=== PATIENT | female | born 1980 | race Caucasian/White ===

== ENCOUNTER 2017-03-05 07:36 | Emergency (ER) | payer OTHER ==
[2017-03-05 07:41] VITALS: BP 144/80; PULSE 85; TEMP 98.5; BMI 22.4
--- NOTE | 2017-03-05 08:10 | PDOC ---
*Physical Exam - Vital Signs Last Vital Signs Temp Pulse Resp BP Pulse Ox 98.5 F 85 18 144/80 100 03/05/17 07:38 03/05/17 07:38 03/05/17 07:38 03/05/17 07:38 03/05/17 07:38 - Physical Exam Comments: 03/05/17 15:58 I reviewed the case of the mid-level practitioner and was available for consultation while in the emergency department *DC/Admit/Observation/Transfer Diagnosis at time of Disposition: Dysuria - Discharge Dispostion Disposition: HOME Condition at time of disposition: Good - Prescriptions Prescriptions: Nitrofurantoin Monohyd/M-Cryst [Macrobid -] 100 mg PO BID #14 capsule - Referrals Referrals: Zuri Pritchard MD [Primary Care Provider] - - Patient Instructions Printed Discharge Instructions: Urinary Tract Infection Additional Instructions: Take antibiotics as prescribed Contact ED for culture results in 3 days at [phone] Return for worsening of symptoms - Post Discharge Activity Forms/Work/School Notes: Back to Work
--- NOTE | 2017-03-05 08:33 | PDOC ---
History of Present Illness - General Chief Complaint: Pain Stated Complaint: ABDOMINAL PAIN Time Seen by Provider: 03/05/17 08:08 History Source: Patient - History of Present Illness Timing/Duration: reports: other Quality: reports: moderate Abdominal Pain Onset Location: reports: suprapubic Past History - Past Medical History Allergies/Adverse Reactions: Allergies Allergy/AdvReac Type Severity Reaction Status Date / Time No Known Allergies Allergy Verified 03/05/17 07:38 Home Medications: Ambulatory Orders Nitrofurantoin Monohyd/M-Cryst [Macrobid -] 100 mg PO BID #14 capsule 03/05/17 Other medical history: denies. - Suicide/Smoking/Psychosocial Hx Smoking History: Current every day smoker Number of Cigarettes Smoked Daily: 8 Information on smoking cessation initiated: No Hx Alcohol Use: Yes (occassionally.) Drug/Substance Use Hx: No Review of Systems - Review of Systems Constitutional: No: Chills, Fever ABD/GI: No: Nausea, Vomiting : Yes: Burning, Dysuria. No: Frequency, Flank Pain, Hematuria Musculoskeletal: No: Back Pain *Physical Exam - Vital Signs Last Vital Signs Temp Pulse Resp BP Pulse Ox 98.5 F 85 18 144/80 100 03/05/17 07:38 03/05/17 07:38 03/05/17 07:38 03/05/17 07:38 03/05/17 07:38 - Physical Exam General Appearance: Yes: Appropriately Dressed. No: Apparent Distress HEENT: positive: Normal Voice Neck: positive: Supple Respiratory/Chest: negative: Respiratory Distress Female Pelvic Exam: positive: normal external exam, normal adnexa, discharge ( small amount milky white discharge). negative: CMT, adnexal tenderness Gastrointestinal/Abdominal: positive: Tender, Soft Musculoskeletal: negative: CVA Tenderness Integumentary: positive: Dry, Warm Neurologic: positive: Fully Oriented, Alert, Normal Mood/Affect Medical Decision Making - Medical Decision Making 03/05/17 08:28 36-year-old female, denies any past medical history here with suprapubic pain with dysuria. Patient states she developed symptoms approximately 3 weeks ago and was diagnosed with a UTI at [facility] And started on Keflex. States symptoms did not resolve, so went to her PMD for evaluation and states she was started on cipro, but states she continues to have symptoms despite completing meds. Patient does not know the results of initial or subsequent culture. Denies hematuria, flank pain, nausea, vomiting, fever or chills. No unusual vaginal discharge. No history of STDs. See exam Persistent dysuria Completed 2 course of keflex over past 3 weeks, does not know cx results Exam only remarkable for ttp to mid suprapubic area, no e/o pyelo and pelvic exam wnl Given recent abx use, ua and ucx m/l will be unreliable, will contact for initial cx results 03/05/17 08:39 [phone] and was told that patient's UA showed positive leuks only and that patient was in fact started on cipro not Keflex. Staff informed me that no urine culture was sent. Will dc w/ macrobid. Reason to return d/w pt 03/05/17 08:42 03/05/17 09:02 *DC/Admit/Observation/Transfer Diagnosis at time of Disposition: Dysuria - Discharge Dispostion Disposition: HOME Condition at time of disposition: Good - Prescriptions Prescriptions: Nitrofurantoin Monohyd/M-Cryst [Macrobid -] 100 mg PO BID #14 capsule - Referrals Referrals: Zuri Pritchard MD [Primary Care Provider] - - Patient Instructions Printed Discharge Instructions: Urinary Tract Infection Additional Instructions: Take antibiotics as prescribed Contact ED for culture results in 3 days at [phone] Return for worsening of symptoms
[2017-03-05 09:04] LABS: URINE APPEARANCE CLOUDY; URINE BILIRUBIN NEGATIVE (NEGATIVE); URINE BLOOD 1+ (NEGATIVE); URINE COLOR YELLOW; URINE GLUCOSE (UA) NEGATIVE (NEGATIVE); URINE KETONE NEGATIVE (NEGATIVE); URINE NITRITE NEGATIVE (NEGATIVE); URINE PROTEIN NEGATIVE (NEGATIVE); URINE UROBILINOGEN NEGATIVE mg/dL (0.2-1.0)
[2017-03-05 09:11] LABS: URINE MUCUS MANY; URINE RBC 5 /hpf (0-3); URINE WBC 11 /hpf (3-5)
--- NOTE | 2017-03-05 09:14 | PDOC ---
*Physical Exam - Vital Signs Last Vital Signs Temp Pulse Resp BP Pulse Ox 98.5 F 85 18 144/80 100 03/05/17 07:38 03/05/17 07:38 03/05/17 07:38 03/05/17 07:38 03/05/17 07:38 ED Treatment Course - ADDITIONAL ORDERS Additional order review: Laboratory Results 03/05/17 08:45 Urine Color Yellow Urine Appearance Cloudy Urine pH 5.0 Urine Protein Negative Urine Glucose (UA) Negative Urine Ketones Negative Urine Blood 1+ H Urine Nitrite Negative Urine Bilirubin Negative Urine Urobilinogen Negative *DC/Admit/Observation/Transfer Diagnosis at time of Disposition: Dysuria - Discharge Dispostion Disposition: HOME Condition at time of disposition: Good - Prescriptions Prescriptions: Nitrofurantoin Monohyd/M-Cryst [Macrobid -] 100 mg PO BID #14 capsule - Referrals Referrals: Zuri Pritchard MD [Primary Care Provider] - - Patient Instructions Printed Discharge Instructions: Urinary Tract Infection Additional Instructions: Take antibiotics as prescribed Contact ED for culture results in 3 days at [phone] Return for worsening of symptoms - Post Discharge Activity Forms/Work/School Notes: Back to Work
[2017-03-05 10:51] LABS: URINE LEUK ESTERASE TRACE (NEGATIVE)
== END 2017-03-05 09:18 | disposition home or self-care (01) ==
LOC: SUPCPDRO 07:36 → JER 07:36
DX: R30.0 Dysuria (principal); Z87.440 Personal history of urinary (tract) infections
CPT/HCPCS: 81003; 81015; 84703; 87086; 99282-25

== ENCOUNTER 2017-08-09 16:59 | Emergency (ER) | payer SELFPAY ==
--- NOTE | 2017-08-09 17:15 | PDOC ---
Rapid Medical Evaluation Chief Complaint: Urinary Problem Time Seen by Provider: 08/09/17 17:14 Medical Evaluation: Allergies Allergy/AdvReac Type Severity Reaction Status Date / Time No Known Allergies Allergy Verified 08/09/17 17:13 I have performed a brief in-person evaluation of this patient. The patient presents with a chief complaint of: pressure and pain with urination today Pertinent physical exam findings: none I have ordered the following: UA/culture/hcg The patient will proceed to the ED for further evaluation.
[2017-08-09 17:16] VITALS: BP 107/70; PULSE 71; TEMP 98.2; BMI 21.2
--- NOTE | 2017-08-09 18:23 | PDOC ---
History of Present Illness - General Chief Complaint: Urinary Problem Stated Complaint: POSSIBLE UTI Time Seen by Provider: 08/09/17 17:14 History Source: Patient Exam Limitations: No Limitations - History of Present Illness Travel History: No Initial Comments: 08/09/17 18:22 37 yr female with one day of urinary burning, urgency and frequency for one day. pt has history of UTI in the past states this feels the same. Past History - Past Medical History Allergies/Adverse Reactions: Allergies Allergy/AdvReac Type Severity Reaction Status Date / Time No Known Allergies Allergy Verified 08/09/17 17:13 Home Medications: Ambulatory Orders Cephalexin [Keflex] 500 mg PO BID #6 capsule 08/09/17 Phenazopyridine HCl [Pyridium] 200 mg PO TID #6 tablet 08/09/17 COPD: No - Suicide/Smoking/Psychosocial Hx Smoking History: Current every day smoker Number of Cigarettes Smoked Daily: 8 Information on smoking cessation initiated: Yes 'Breaking Loose' booklet given: 08/09/17 Hx Alcohol Use: Yes (occassionally.) Drug/Substance Use Hx: No Substance Use Type: None *Physical Exam - Vital Signs Last Vital Signs Temp Pulse Resp BP Pulse Ox 98.2 F 71 18 107/70 100 08/09/17 17:14 08/09/17 17:14 08/09/17 17:14 08/09/17 17:14 08/09/17 17:14 - Physical Exam General Appearance: Yes: Nourished, Appropriately Dressed HEENT: positive: EOMI, KITA, Normal ENT Inspection Neck: negative: Tender Respiratory/Chest: positive: Lungs Clear, Normal Breath Sounds Cardiovascular: positive: Regular Rhythm, Regular Rate Musculoskeletal: positive: Normal Inspection Extremity: positive: Normal Capillary Refill, Normal Inspection, Normal Range of Motion Integumentary: positive: Normal Color, Dry, Warm Neurologic: positive: Fully Oriented, Alert, Normal Mood/Affect, Normal Response , Motor Strength 5/5 Medical Decision Making - Medical Decision Making 08/09/17 18:25 cc: urinary urgency and frequency no fever, no flank or back pain neg vomiting or diarrhea will check UA 08/09/17 19:07 will treat for UTI now *DC/Admit/Observation/Transfer Diagnosis at time of Disposition: Urinary tract infection Qualifiers: Urinary tract infection type: acute cystitis Hematuria presence: without hematuria Qualified Code(s): N30.00 - Acute cystitis without hematuria - Discharge Dispostion Disposition: HOME Condition at time of disposition: Good - Prescriptions Prescriptions: Cephalexin [Keflex] 500 mg PO BID #6 capsule Phenazopyridine HCl [Pyridium] 200 mg PO TID #6 tablet - Referrals Referrals: Master Landrum MD [Staff Physician] - - Patient Instructions Additional Instructions: drink pleanty of water take the medication as prescribed follow with the urologist for any worsening symptoms - Post Discharge Activity
[2017-08-09 18:28] LABS: HCG,QUALITATIVE URINE NEGATIVE; URINE APPEARANCE CLOUDY; URINE BILIRUBIN NEGATIVE (<2.0 mg/dL); URINE BLOOD 2+ (NEGATIVE); URINE COLOR STRAW; URINE GLUCOSE (UA) NEGATIVE (NEGATIVE); URINE KETONE NEGATIVE (NEGATIVE); URINE NITRITE NEGATIVE (NEGATIVE); URINE PROTEIN NEGATIVE (NEGATIVE); URINE UROBILINOGEN NEGATIVE mg/dL (0.2-1.0)
[2017-08-09 18:29] LABS: URINE LEUK ESTERASE 3+ (NEGATIVE)
[2017-08-09] MEDS ORDERED: IBUPROFEN 600 MG TABLET (FP) PO ONE ×2 (18:44→19:08)
[2017-08-09 19:35] LABS: EPI CELLS MODERATE /HPF (FEW); URINE BACTERIA MODERATE /hpf (NONE SEEN)
== END 2017-08-09 19:10 | disposition home or self-care (01) ==
LOC: JERFT 16:59
DX: N30.00 Acute cystitis without hematuria (principal)
CPT/HCPCS: 81003; 81015; 84703; 87086; 99281-25

== ENCOUNTER 2017-08-11 14:23 | Emergency (ER) | payer SELFPAY ==
[2017-08-11 14:34] VITALS: BP 108/79; PULSE 80; TEMP 98; BMI 22.0
--- NOTE | 2017-08-11 14:35 | PDOC ---
Rapid Medical Evaluation Chief Complaint: Urinary Problem Time Seen by Provider: 08/11/17 14:31 Medical Evaluation: Allergies Allergy/AdvReac Type Severity Reaction Status Date / Time No Known Allergies Allergy Verified 08/09/17 17:13 08/11/17 14:32 I have performed a brief in-person evaluation of this patient. The patient presents with a chief complaint of:dysuria, currently on keflex w/ no improvement. Ucx 08/09 w/ contamination, no sensitivities reported. States macrobid helped her in the past Pertinent physical exam findings:stable and well karin w/ no CVAT I have ordered the following:ua/cx/upreg The patient will proceed to the ED for further evaluation. 08/11/17 14:33
[2017-08-11 15:57] LABS: HCG,QUALITATIVE URINE NEGATIVE
[2017-08-11 15:58] LABS: URINE APPEARANCE CLEAR; URINE BILIRUBIN NEGATIVE (<2.0 mg/dL); URINE BLOOD NEGATIVE (NEGATIVE); URINE COLOR RED; URINE GLUCOSE (UA) NEGATIVE (NEGATIVE); URINE KETONE NEGATIVE (NEGATIVE); URINE LEUK ESTERASE NEGATIVE (NEGATIVE); URINE NITRITE POSITIVE (NEGATIVE); URINE UROBILINOGEN 4.0 E.U/dl mg/dL (0.2-1.0)
[2017-08-11 16:00] LABS: EPI CELLS MODERATE /HPF (FEW); URINE BACTERIA RARE /hpf (NONE SEEN); URINE MUCUS FEW; URINE PROTEIN 1+ (NEGATIVE)
--- NOTE | 2017-08-11 16:28 | PDOC ---
History of Present Illness - General Chief Complaint: Urinary Problem Stated Complaint: URINARY PROBLEM/WANTS PRESCRIPTION Time Seen by Provider: 08/11/17 14:31 History Source: Patient Exam Limitations: No Limitations - History of Present Illness Travel History: No Initial Comments: 08/11/17 16:28 This is a 37-year-old female who presents to emergency department with 2 days of dysuria, urgency, frequency and foul-smelling urine. Patient was seen and evaluated in this emergency Department 2 days ago and was prescribed Keflex for which the patient has finish the prescription. Patient states her symptoms have improved since initial presentation for UTI. She denies any fevers, lower back pain, nausea, vomiting, vaginal discharge, vaginal bleeding or rectal bleeding. Past History - Past Medical History Allergies/Adverse Reactions: Allergies Allergy/AdvReac Type Severity Reaction Status Date / Time No Known Allergies Allergy Verified 08/11/17 14:34 Home Medications: Ambulatory Orders Cephalexin [Keflex] 500 mg PO BID #6 capsule 08/09/17 Phenazopyridine HCl [Pyridium] 200 mg PO TID #6 tablet 08/09/17 Cephalexin Monohydrate [Keflex -] 500 mg PO BID #10 capsule 08/11/17 COPD: No Other medical history: UTI - Suicide/Smoking/Psychosocial Hx Smoking History: Never smoked Number of Cigarettes Smoked Daily: 8 Information on smoking cessation initiated: No 'Breaking Loose' booklet given: 08/11/17 Hx Alcohol Use: No Drug/Substance Use Hx: No Substance Use Type: None Review of Systems - Review of Systems Able to Perform ROS?: Yes Is the patient limited Czech proficient: No Constitutional: No: Symptoms Reported HEENTM: No: Symptoms Reported Respiratory: No: Symptoms reported Cardiac (ROS): No: Symptoms Reported ABD/GI: No: Symptoms Reported : Yes: See HPI Musculoskeletal: No: Symptoms Reported Integumentary: No: Symptoms Reported Neurological: No: Symptoms reported Endocrine: No: Symptoms Reported *Physical Exam - Vital Signs Last Vital Signs Temp Pulse Resp BP Pulse Ox 98 F 80 18 108/79 100 08/11/17 14:31 08/11/17 14:31 08/11/17 14:31 08/11/17 14:31 08/11/17 14:31 - Physical Exam General Appearance: Yes: Appropriately Dressed. No: Apparent Distress HEENT: positive: Normal ENT Inspection Neck: positive: Trachea midline Respiratory/Chest: positive: Lungs Clear, Normal Breath Sounds. negative: Respiratory Distress, Accessory Muscle Use Cardiovascular: positive: Regular Rhythm, Regular Rate. negative: Murmur Gastrointestinal/Abdominal: positive: Normal Bowel Sounds, Soft. negative: Tender Musculoskeletal: positive: Normal Inspection. negative: CVA Tenderness Extremity: positive: Normal Capillary Refill, Normal Inspection, Normal Range of Motion Integumentary: positive: Normal Color, Dry, Warm Neurologic: positive: Alert, Normal Response ED Treatment Course - ADDITIONAL ORDERS Additional order review: Laboratory Results 08/11/17 15:47 Urine Color Red Urine Appearance Clear Urine pH 5.0 Ur Specific [place] 1.014 Urine Protein 1+ H Urine Glucose (UA) Negative Urine Ketones Negative Urine Blood Negative Urine Nitrite Positive Urine Bilirubin Negative Urine Urobilinogen 4.0 e.u/dl H Ur Leukocyte Esterase Negative Urine WBC (Auto) 7 Urine RBC (Auto) <1 Ur Epithelial Cells Moderate Urine Bacteria Rare Urine Mucus Few Urine HCG, Qual Negative Medical Decision Making - Medical Decision Making 08/11/17 16:30 CC: Dysuria, urgency, frequency, foul smelling urine for 2 days A/P: 37-year-old woman without past medical history with 2 days of urinary tract infection symptoms Abdomen soft nontender nondistended. No CVA tenderness elicited. Urine culture collected the other day was contaminated no sensitivities present. Urinalysis today compared to previous urinalysis has improved. Patient with UTI. Given continued symptoms, I will continue Keflex for the next 5 days for a total of 1 week of medications. *DC/Admit/Observation/Transfer Diagnosis at time of Disposition: Urinary tract infection Qualifiers: Urinary tract infection type: site unspecified Hematuria presence: without hematuria Qualified Code(s): N39.0 - Urinary tract infection, site not specified - Discharge Dispostion Disposition: HOME Condition at time of disposition: Stable Admit: No - Prescriptions Prescriptions: Cephalexin Monohydrate [Keflex -] 500 mg PO BID #10 capsule - Referrals - Patient Instructions Additional Instructions: Take Keflex as prescribed until all medications have been finished. Continue to take Pyridium as previous and prescribed. You may take Tylenol or Motrin to help with fevers and/or pain. Drink plenty of fluids. You may drink cranberry juice as this may help decrease pain your experiencing. Return to emergency department for lower back pain, fevers, chills, vaginal discharge or any other concerns. - Post Discharge Activity Forms/Work/School Notes: Back to Work
== END 2017-08-11 16:35 | disposition home or self-care (01) ==
LOC: JERFT 14:23
DX: N39.0 Urinary tract infection, site not specified (principal)
CPT/HCPCS: 81003; 81015; 84703; 87086; 99281-25

== ENCOUNTER 2018-01-15 18:01 | Emergency (ER) | payer OTHER ==
[2018-01-15 18:34] VITALS: BP 105/66; PULSE 73; TEMP 99.6; BMI 21.8
--- NOTE | 2018-01-15 20:25 | PDOC ---
Attending Attestation - HPI HPI: 01/15/18 20:53 The patient is a 37 year old female, , currently 6 weeks with a significant PMH of recurrent UTIs, and BV who presents to the emergency department with vaginal spotting since yesterday. The patient reports that she has also been experiencing associated lower abdominal and back cramping with her vaginal bleeding. The patient describes her bleeding as spotting and not filling a liner. The patient states that her pain has gone from a severity of 7 to 3 since last night. She denies any other symptome. She denies any fever, chills, nausea, vomit, diarrhea, constipation or urinary symptoms. She denies any chest pain, shortness of breath, headache and dizziness. The patient denies any other complaints. She reports that she has an upcoming OB follow up in 3 weeks. Documentation prepared by Ida Carreno, acting as medical stenographer for Roselyn Clemente MD. - Physicial Exam PE: 01/15/18 20:53 GENERAL: Awake, alert, and fully oriented, in no acute distress HEAD: No signs of trauma EYES: PERRLA, EOMI, sclera anicteric, conjunctiva clear ENT: Auricles normal inspection, hearing grossly normal, nares patent, oropharynx clear without exudates. Moist mucosa NECK: Normal ROM, supple, no lymphadenopathy, JVD, or masses LUNGS: Breath sounds equal, clear to auscultation bilaterally. No wheezes, and no crackles HEART: Regular rate and rhythm, normal S1 and S2, no murmurs, rubs or gallops ABDOMEN: Soft, nontender, normoactive bowel sounds. No guarding, no rebound. No masses EXTREMITIES: Normal range of motion, no edema. No clubbing or cyanosis. No cords, erythema, or tenderness NEUROLOGICAL: Cranial nerves II through XII grossly intact. Normal speech, normal gait SKIN: Warm, Dry, normal turgor, no rashes or lesions noted. PELVIC: no bleeding or discharge. Cervical OS closed. <Ida Carreno - Last Filed: 01/15/18 20:53> - Resident Resident Name: Savannah Zuniga - ED Attending Attestation I have performed the following: I have examined & evaluated the patient, The case was reviewed & discussed with the resident, I agree w/resident's findings & plan - Physicial Exam PE: 01/15/18 20:42 Os os closed =open to fingertip only; no CMT, no discharge, and no vag bleed; no rashes in the perineal area. Pt is afebrile. - Medical Decision Making 01/15/18 20:42 Pt has vaginal spotting in early . We will check Quant HCG, blood type as well as UA. Pt is in NAD. SHe has mild cramping at the suprapubic region. Tylenol will be given for pain. 01/15/18 20:54 HB/HCT stable; UA negative for UTI 01/15/18 22:46 hcg quant is 2000s; early ; threatened ab. She will follow with outpaitient OB; Blood type rh positive <Roselyn Clemente - Last Filed: 01/15/18 22:46>
--- NOTE | 2018-01-15 20:31 | PDOC ---
History of Present Illness - General Chief Complaint: Vaginal Bleeding Stated Complaint: VAGINAL BLEED/6 WEEKS - History of Present Illness Initial Comments: Peggy Ramirez is a 37yo A2 woman currently 6wks by LMP who presents with abdominal cramping, vaginal spotting, and low back pain for one day. She reports that she started having low back pain last night and then started having low abdominal cramping today. Initially the abdominal pain was a 7/10, improved slightly, worsened, and now improved again to about a 2-3/10 currently. She additionally had some bright red vaginal spotting earlier today that has now stopped. She wanted to make sure that everything was OK with the , so she presented to the ED. Ms Ramirez additionally reports a recent episode of bacterial vaginosis. She was taking a course of flagyl at home that was just completed today. She also states that she gets frequent UTIs. She has been having urinary frequency and some burning lately, but she attributed those symptoms to the BV and . She does sometimes get suprapubic pain with UTIs that does feel similar to her current symptoms. She denies any additional symptoms including nausea, vomiting, change in bowel habits, fever, or chills. Past History - Past Medical History Allergies/Adverse Reactions: Allergies Allergy/AdvReac Type Severity Reaction Status Date / Time No Known Allergies Allergy Verified 01/15/18 18:26 Home Medications: Ambulatory Orders NK [No Known Home Medication] 01/15/18 COPD: No - Suicide/Smoking/Psychosocial Hx Smoking History: Never smoked Number of Cigarettes Smoked Daily: 8 'Breaking Loose' booklet given: 08/11/17 Hx Alcohol Use: No Drug/Substance Use Hx: No Substance Use Type: None Review of Systems - Review of Systems Comments:: General: No fevers, no chills, no weight or appetite change, no malaise HEENT: No changes in vision, no changes in hearing, no congestion, no sore throat CV: No chest pain, no palpitations, no LE edema Pulm: No SOB, no cough, no wheezing GI: No nausea or vomiting, no change in bowel habits, no melena. +Low abd pain : +frequency, +dysuria, +vaginal discharge (recent BV), +h/o frequent UTI Musc: +Low back pain. No joint swelling, no recent injury Skin: No rash, no lesions, no erythema Endo: No excessive thirst, no heat/cold intolerance Heme: No unusual bruising or bleeding, no swollen glands Neuro: No syncope, no numbness/tingling, no focal weakness Vasc: No claudication Psych: No recent change in mood, no SI or HI *Physical Exam - Vital Signs Last Vital Signs Temp Pulse Resp BP Pulse Ox 99.6 F 73 18 105/66 99 01/15/18 18:24 01/15/18 18:24 01/15/18 18:24 01/15/18 18:24 01/15/18 18:24 - Physical Exam Comments: General: Comfortable, no acute distress HEENT: PERRL, EOMI, MMM, voice normal, normal neck ROM, no LAD Cards: RRR, no murmur appreciated Pulm: Comfortable on room air, clear to auscultation bilaterally Abd: Soft, nondistended. Mild suprapubic tenderness : No CVA tenderness Vaginal: No blood externally. Slight white discharge c/w recent bacterial vaginosis. No blood in vaginal canal. Poorly visualized cervix, but no cervical opening appreciated on manual exam. No cervical motion tenderness. Ext: Atraumatic. No LE edema. ROM intact. Strength 5/5 and equal bilaterally Vasc: Extremities WWP. Palpable radial and pedal pulses bilaterally Neuro: A&Ox3, CN grossly intact, normal speech, motor/sensory grossly intact and symmetric Psych: Mood appropriate to situation ED Treatment Course - LABORATORY CBC & Chemistry Diagram: 01/15/18 20:20 01/15/18 20:20 Medical Decision Making - Medical Decision Making 01/15/18 20:41 Peggy Ramirez is an otherwise healthy 37yo woman, A2, currently 6 wks by LMP who presents with vaginal spotting, low back pain since yesterday and low abdominal cramping today. She also reports recent bacterial vaginosis, 7 days of flagyl completed today, and a history of frequent UTI. - Has had dysuria and frequency, attributed to BV and but may be a UTI. Could account for symptoms - Concern for threatened v inevitable spontaneous - Symptoms may also be consistent with normal - UA, CBC, type & screen, urine preg, quantitative bHCG ordered 01/15/18 22:09 - UA normal, UPG positive. - HCG 2285, slightly low but WNL for stated gestational age - Discussed with Ms Ramirez. Will need follow up HCG early next week; she will need to make a follow up appointment with OB. She agrees to call for an appointment on Wednesday. - Will discharge home. Discussed return precautions, Ms Ramirez understands. Patient discussed with Dr Clemente. *DC/Admit/Observation/Transfer Diagnosis at time of Disposition: Abdominal pain during in first trimester - Discharge Dispostion Disposition: HOME Condition at time of disposition: Good Decision to Admit order: No - Referrals Referrals: Veena Garcia MD [Staff Physician] - - Patient Instructions Printed Discharge Instructions: DI for Abdominal Pain -- Early Additional Instructions: Discharge Instructions: - You were seen in the ED for abdominal and back pain along with a small amount of vaginal bleeding. - Labs confirmed an early , likely around 5 weeks - Your hormone was measured at 2285. You will need a repeat blood test to check whether this hormone continues to improve. Try to make an appointment with Dr Garcia early next week. If you cannot get an appointment next week, you may return to the ED for this blood test but ideally you will establish care with an solutions delivery consultant. - The remainder of your blood and urine tests were normal - Seek immediate medical care if you have significant vaginal bleeding, especially if you are lightheaded or faint, or if you have acute onset of severe abdominal pain along with heavy vaginal bleeding. Also seek attention if you have continued heavy bleeding requiring multiple pads/tampons per hour, especially if this continues for more than a day - Post Discharge Activity
[2018-01-15 20:32] LABS: HEMOGLOBIN 13.3 GM/dL (10.7-15.3); MCH 31.7 pg (25.7-33.7); MCHC 34.1 g/dl (32.0-36.0); MEAN PLT VOLUME 8.9 fl (7.5-11.1); PLATELET COUNT 181 K/MM3 (134-434); RBC 4.19 M/mm3 (3.60-5.2); RDW 12.6 % (11.6-15.6); WHITE BLOOD COUNT 6.9 K/mm3 (4.0-10.0)
[2018-01-15 20:36] LABS: HCG,QUALITATIVE URINE Positive
[2018-01-15 20:38] LABS: URINE APPEARANCE CLEAR; URINE BILIRUBIN NEGATIVE (<2.0 mg/dL); URINE COLOR YELLOW; URINE GLUCOSE (UA) NEGATIVE (NEGATIVE); URINE KETONE NEGATIVE (NEGATIVE); URINE LEUK ESTERASE NEGATIVE (NEGATIVE); URINE NITRITE NEGATIVE (NEGATIVE); URINE PROTEIN NEGATIVE (NEGATIVE); URINE UROBILINOGEN NEGATIVE mg/dL (0.2-1.0)
[2018-01-15] MEDS ORDERED: ACETAMINOPHEN 325 MG TABLET (FP) PO ONE (20:43)
[2018-01-15 20:53] LABS: ANION GAP 8 MMOL/L (8-16); BLOOD UREA NITROGEN 15 mg/dL (7-18); CALCIUM 8.6 mg/dL (8.5-10.1); CHLORIDE 108 mmol/L (98-107); CO2 26 mmol/L (21-32); CREATININE 0.7 mg/dL (0.55-1.02); GLUCOSE,RANDOM 81 mg/dL (74-106); POTASSIUM 3.9 mmol/L (3.5-5.1); SODIUM 142 mmol/L (136-145)
[2018-01-15] MEDS ORDERED: ACETAMINOPHEN 325 MG TABLET (FP) ONE (20:55)
== END 2018-01-15 22:50 | disposition home or self-care (01) ==
LOC: JER 18:01
DX: O26.891 Other specified pregnancy related conditions, first trimester (principal); Z3A.01 Less than 8 weeks gestation of pregnancy; R10.9 Unspecified abdominal pain
CPT/HCPCS: 36415; 80048; 81003; 84702; 84703; 85027; 86850; 86900; 86901; 99281-25

== ENCOUNTER 2018-01-18 18:41 | Emergency (ER) | payer OTHER ==
[2018-01-18 18:54] VITALS: TEMP 99.3; BMI 21.6
--- NOTE | 2018-01-18 20:19 | PDOC ---
History of Present Illness - General History Source: Patient Exam Limitations: No Limitations - History of Present Illness Initial Comments: 01/18/18 20:32 The patient is a 37 year old female, A2, with no other significant past medical history, who presents to the emergency department with increased abdominal cramping and persistent vaginal bleeding since having a beta HCG of 2295 on 01/15/18. She states she was seen by her Assembler Truck Trailer today who tigre blood work, however, states she has a follow-up appt in 2 days to obtain the results. She states the vaginal bleeding has been persistent with change of the coloration from brown to red today. LMP: November 2017 The patient denies chest pain, shortness of breath, headache and dizziness. The patient denies fever, chills, nausea, vomit, diarrhea and constipation. The patient denies dysuria, frequency, urgency and hematuria. Allergies: NKDA Past surgical history: none reported Social history: denies etoh or tobacco. Denies illicit drug use. <Leslie Maldonado - Last Filed: 01/18/18 20:37> <Rosy Crawford - Last Filed: 01/18/18 21:56> - General Chief Complaint: Vaginal Bleeding Stated Complaint: VAGINAL BLEED/7WKS Time Seen by Provider: 01/18/18 20:16 Past History <Leslie Maldonado - Last Filed: 01/18/18 20:37> - Past Medical History COPD: No - Reproductive History (#): 5 Para: 2 Therapeutic (s) & number: Yes (2) - Suicide/Smoking/Psychosocial Hx Smoking History: Never smoked Have you smoked in the past 12 months: No Number of Cigarettes Smoked Daily: 8 Information on smoking cessation initiated: No 'Breaking Loose' booklet given: 08/11/17 Hx Alcohol Use: No Drug/Substance Use Hx: No Substance Use Type: None <Rosy Crawford - Last Filed: 01/18/18 21:56> - Past Medical History Allergies/Adverse Reactions: Allergies Allergy/AdvReac Type Severity Reaction Status Date / Time No Known Allergies Allergy Verified 01/18/18 18:53 Home Medications: Ambulatory Orders NK [No Known Home Medication] 01/15/18 Review of Systems - Review of Systems Able to Perform ROS?: Yes Comments:: 01/18/18 20:37 CONSTITUTIONAL: Absent: fever, no chills, no fatigue EYES: Absent: visual changes ENT: Absent: ear pain, no sore throat CARDIOVASCULAR: Absent: chest pain, no palpitations RESPIRATORY: Absent: cough, no SOB GI: (+) abdominal pain, Absent:no nausea, no vomiting, no constipation, no diarrhea GENITOURINARY: Absent: dysuria, no frequency, no hematuria REPRODUCTIVE: (+) persistent vaginal bleeding in . MUSCULOSKELETAL: Absent: back pain, no arthralgia, no myalgia SKIN: Absent: rash NEURO: Absent: headache <Leslie Maldonado - Last Filed: 01/18/18 20:37> *Physical Exam - Vital Signs Last Vital Signs Temp Pulse Resp BP Pulse Ox 99.3 F 69 16 114/70 100 01/18/18 18:51 01/18/18 18:51 01/18/18 18:51 01/18/18 18:51 01/18/18 18:51 - Physical Exam Comments: 01/18/18 20:38 GENERAL: Well-appearing, well-nourished. No apparent distress. HEENT: Normocephalic, atraumatic. PERRL, EOM intact. CARDIOVASCULAR: Normal S1, S2. Regular rate and rhythm. PULMONARY: Clear to auscultation bilaterally. ABDOMEN: Soft, non-distended, non-tender. EXTREMITIES: Normal ROM in all four extremities. No gross deformities. SKIN: Warm, dry. No rash NEUROLOGICAL: No focal neurological deficits. PELVIC: (+) Blood in vaginal vault fills speculum. Difficulty visualizing Os due to blood. <Leslie Maldonado - Last Filed: 01/18/18 20:37> - Vital Signs Last Vital Signs Temp Pulse Resp BP Pulse Ox 99.3 F 69 16 114/70 100 01/18/18 18:51 01/18/18 18:51 01/18/18 18:51 01/18/18 18:51 01/18/18 18:51 <Rosy Crawford - Last Filed: 01/18/18 21:56> *DC/Admit/Observation/Transfer - Attestations Scribe Attestion: 01/18/18 20:39 Documentation prepared by Leslie Maldonado, acting as medical sociologist for Rosy Crawford MD <Leslie Maldonado - Last Filed: 01/18/18 20:37> <Rosy Crawford - Last Filed: 01/18/18 21:56> Diagnosis at time of Disposition: Threatened in early - Discharge Dispostion Disposition: HOME Condition at time of disposition: Stable - Patient Instructions Printed Discharge Instructions: DI for Threatened Additional Instructions: please keep your appointment this week with your sound truck operator
[2018-01-18 21:04] LABS: URINE APPEARANCE SLCLOUDY; URINE BILIRUBIN NEGATIVE (<2.0 mg/dL); URINE COLOR YELLOW; URINE GLUCOSE (UA) NEGATIVE (NEGATIVE); URINE KETONE NEGATIVE (NEGATIVE); URINE LEUK ESTERASE NEGATIVE (NEGATIVE); URINE NITRITE NEGATIVE (NEGATIVE); URINE PROTEIN NEGATIVE (NEGATIVE); URINE UROBILINOGEN NEGATIVE mg/dL (0.2-1.0)
[2018-01-18 21:10] LABS: EPI CELLS FEW /HPF (FEW); URINE MUCUS FEW
[2018-01-18 22:05] VITALS: BP 118/46; PULSE 65
== END 2018-01-18 22:05 | disposition home or self-care (01) ==
LOC: JER 18:41
DX: O26.891 Other specified pregnancy related conditions, first trimester (principal); Z3A.01 Less than 8 weeks gestation of pregnancy; O20.0 Threatened abortion
CPT/HCPCS: 36415; 76817-TC; 81003; 81015; 84702; 99283-25

== ENCOUNTER 2018-01-21 12:57 | Emergency (ER) | payer OTHER ==
[2018-01-21 13:36] VITALS: TEMP 98.5; BMI 19.3
--- NOTE | 2018-01-21 13:50 | PDOC ---
History of Present Illness - General Chief Complaint: Vaginal Bleeding Stated Complaint: MISCARRIAGE Time Seen by Provider: 01/21/18 13:35 History Source: Patient Exam Limitations: No Limitations - History of Present Illness Initial Comments: CHIEF COMPLAINT: 37 y/o afebrile female, A3, approximately 6 week female c/o lower abdominal pain with vaginal bleeding since yesterday. HISTORY OF PRESENT ILLNESS: She states the pain is sharp and she is passing clots. She denies fever, chills, n/v/d, hematuria, dysuria. Vital signs on arrival are within normal limits. REVIEW OF SYSTEMS: GENERAL/CONSTITUTIONAL: No fever/chills. No weakness. No weight change. HEAD, EYES, EARS, NOSE AND THROAT: No change in vision. No ear pain or discharge. No sore throat. CARDIOVASCULAR: No chest pain or shortness of breath. RESPIRATORY: No cough, wheezing, or hemoptysis. GASTROINTESTINAL: +lower abdominal pain. No nausea, vomiting, diarrhea. VAGINAL: +VAGINAL BLEEDING GENITOURINARY: No dysuria, frequency, or change in urination. MUSCULOSKELETAL: No joint or muscle swelling or pain. No neck or back pain. SKIN: No rash or easy bruising. NEUROLOGIC: No headache, vertigo, loss of consciousness, or loss of sensation. PHYSICAL EXAM: GENERAL: The patient is awake, alert, and fully oriented, in no acute distress. HEAD: Normal with no signs of trauma. ENT: Pupils equal, round and reactive to light, extraocular movements intact, sclera anicteric, conjunctiva clear. Neck supple. LUNGS: Clear to auscultation bilaterally. Normal excursion. No respiratory distress or use of accessory muscles. CV: RRR, S1/S2, no MRG. Cap refill < 2 sec. ABDOMEN: Soft, non-distended, TTP of suprapubic and left pelvic region. Left flank pain. No rebound, guarding or rigidity. BACK: No CVA TTP b/l. VAGINAL: Os closed. Copious blood from os and in vaginal vault. CMT. No adnexal tenderness. EXTREMITIES: Normal range of motion, no edema. NEUROLOGICAL: Normal speech, normal gait. CN II-XII grossly intact. SKIN: Warm, dry, normal turgor, no rashes or lesions noted. Past History - Past Medical History Allergies/Adverse Reactions: Allergies Allergy/AdvReac Type Severity Reaction Status Date / Time No Known Allergies Allergy Verified 01/21/18 13:34 Home Medications: Ambulatory Orders NK [No Known Home Medication] 01/15/18 COPD: No - Reproductive History Is Patient Now?: Yes (#): 6 Para: 2 Therapeutic (s) & number: Yes (2) Spontaneous : 3 - Suicide/Smoking/Psychosocial Hx Smoking History: Never smoked Have you smoked in the past 12 months: No Number of Cigarettes Smoked Daily: 8 Information on smoking cessation initiated: No 'Breaking Loose' booklet given: 08/11/17 Hx Alcohol Use: No Drug/Substance Use Hx: No Substance Use Type: None *Physical Exam - Vital Signs Last Vital Signs Temp Pulse Resp BP Pulse Ox 98.5 F 61 18 123/76 100 01/21/18 13:34 01/21/18 13:34 01/21/18 13:34 01/21/18 13:34 01/21/18 13:34 ED Treatment Course - LABORATORY CBC & Chemistry Diagram: 01/21/18 14:28 01/21/18 14:28 Medical Decision Making - Medical Decision Making A/P: 37 y/o female, 6 weeks , with vaginal bleeding and abdominal pain. Plan is as follows: 1. Labs 2. UA/culture 3. type and screen 4. transvaginal ultrasound beta 2295 on 01/15/18 beta 2060 on 01/18/18 beta 1507 on 01/21/18 Transvaginal Ultrasound IMPRESSION: No definite interval change is seen in comparison to a prior exam of 01/18/2018 as discussed above. Based on beta HCG levels and Ultrasound results the patient is likely miscarrying. Gave her all of the information and suggested she f/u with her OB/ [facility]. The patient verbalizes understanding of all instructions, has no further questions and is awaiting discharge. *DC/Admit/Observation/Transfer Diagnosis at time of Disposition: Vaginal bleeding affecting early , Miscarriage - Discharge Dispostion Disposition: HOME Condition at time of disposition: Good - Referrals - Patient Instructions Printed Discharge Instructions: DI for Miscarriage, DI for Threatened Additional Instructions: Discharge Instructions: -Your beta hcg was 2295 on 01/15, 2060 on 01/18 and 1507 today (01/21); this decrease indicates that you are miscarrying. -You can take Tylenol or Motrin for pain -Drink plenty of fluids -Follow up with your CONCRETE MIXER TRUCK DRIVER on Wednesday - Post Discharge Activity
--- NOTE | 2018-01-21 14:08 | PDOC ---
*Physical Exam - Vital Signs Last Vital Signs Temp Pulse Resp BP Pulse Ox 98.5 F 61 18 123/76 100 01/21/18 13:34 01/21/18 13:34 01/21/18 13:34 01/21/18 13:34 01/21/18 13:34 Medical Decision Making - Medical Decision Making 01/21/18 14:07 Case discussed with RODNEY Archer. Plan as per RODNEY.
[2018-01-21 14:44] LABS: BASO % 1.3 % (0-2.0); EOS % 4.2 % (0-4.5); HEMATOCRIT 39.2 % (32.4-45.2); HEMOGLOBIN 13.3 GM/dL (10.7-15.3); LYMPH % 18.8 % (8-40); MCH 31.8 pg (25.7-33.7); MCHC 33.9 g/dl (32.0-36.0); MEAN CELL VOLUME 93.7 fl (80-96); MEAN PLT VOLUME 9.2 fl (7.5-11.1); MONO % 7.4 % (3.8-10.2); NEUT % 68.3 % (42.8-82.8); PLATELET COUNT 170 K/MM3 (134-434); RBC 4.18 M/mm3 (3.60-5.2); RDW 12.6 % (11.6-15.6); URINE APPEARANCE CLEAR; URINE BILIRUBIN NEGATIVE (<2.0 mg/dL); URINE COLOR YELLOW; URINE GLUCOSE (UA) NEGATIVE (NEGATIVE); URINE KETONE NEGATIVE (NEGATIVE); URINE LEUK ESTERASE NEGATIVE (NEGATIVE); URINE NITRITE NEGATIVE (NEGATIVE); URINE PROTEIN NEGATIVE (NEGATIVE); URINE UROBILINOGEN NEGATIVE mg/dL (0.2-1.0); WHITE BLOOD COUNT 6.7 K/mm3 (4.0-10.0)
[2018-01-21 15:17] LABS: EPI CELLS RARE /HPF (FEW); URINE MUCUS RARE
[2018-01-21 15:38] LABS: ANION GAP 9 MMOL/L (8-16); BLOOD UREA NITROGEN 13 mg/dL (7-18); CALCIUM 8.2 mg/dL (8.5-10.1); CHLORIDE 108 mmol/L (98-107); CO2 26 mmol/L (21-32); CREATININE 0.7 mg/dL (0.55-1.02); GLUCOSE,RANDOM 76 mg/dL (74-106); POTASSIUM 3.9 mmol/L (3.5-5.1); SGOT/AST 19 U/L (15-37); SGPT/ALT 35 U/L (12-78); SODIUM 143 mmol/L (136-145)
[2018-01-21 15:55] LABS: ALK PHOS 45 U/L (45-117); BILIRUBIN,TOTAL 0.3 mg/dL (0.2-1.0)
[2018-01-21 16:26] VITALS: BP 100/74; PULSE 63
== END 2018-01-21 16:26 | disposition home or self-care (01) ==
LOC: JER 12:57
DX: O26.891 Other specified pregnancy related conditions, first trimester (principal); O02.1 Missed abortion; Z3A.01 Less than 8 weeks gestation of pregnancy
CPT/HCPCS: 36415; 76817-TC; 80053; 81003; 81015; 84702; 85025; 86850; 86900; 86901; 87086; 99283-25

== ENCOUNTER 2018-05-14 07:36 | Inpatient (IN) | payer OTHER ==
[2018-05-14] MEDS ORDERED: ACETAMINOPHEN 1000 MG/100 ML VIAL (NON FORMULARY) IVPB ONE ×2 (08:25→14:49)
--- NOTE | 2018-05-14 08:34 | PDOC ---
*Physical Exam - Vital Signs Last Vital Signs Temp Pulse Resp BP Pulse Ox 97.9 F 69 18 96/44 L 99 05/14/18 07:40 05/14/18 07:40 05/14/18 07:40 05/14/18 07:40 05/14/18 07:40 ED Treatment Course - LABORATORY CBC & Chemistry Diagram: 05/15/18 07:45 05/15/18 08:25 Medical Decision Making - Critical Care Time Total Critical Care Time (minutes): 120 Critical Care Statement: The care of this patient involved high complexity decision making to prevent further life threatening deterioration of the patient 's condition and/or to evaluate & treat vital organ system(s) failure or risk of failure. - Medical Decision Making 05/14/18 08:33 38 yo F presenting with a complaint of abdominal pain Pt is , approximately 6 weeks Abdominal pain began this morning Pelvic examination per SAMPLING EXPERT Johnson Pt denies vaginal bleeding Pt denies flank pain Labs US Pt seen by Midlevel Provider under my direct supervision Pt interviewed and examined Ancillary studies reviewed I agree with plan as outlined by Midlevel Provider 05/14/18 09:02 US concerning for ectopic Pt bp low IV hydration started Blood transfusion started Case reviewed with Dr De Anda Will send to the OR 05/14/18 09:04 Clinical Impression: Ruptured ectopic , initial presentation *DC/Admit/Observation/Transfer Diagnosis at time of Disposition: Ectopic - Discharge Dispostion Disposition: HOME Condition at time of disposition: Stable - Prescriptions - Referrals - Patient Instructions - Post Discharge Activity
[2018-05-14] MEDS ORDERED: ACETAMINOPHEN INJECTION 100 ML IVPB ONE ×2 (09:03→16:50)
[2018-05-14 09:26] LABS: BASO % 0.7 % (0-2.0); EOS % 0.9 % (0-4.5); HEMATOCRIT 37.4 % (32.4-45.2); HEMOGLOBIN 12.3 GM/dL (10.7-15.3); LYMPH % 8.7 % (8-40); MCH 30.2 pg (25.7-33.7); MCHC 32.8 g/dl (32.0-36.0); MEAN CELL VOLUME 92.1 fl (80-96); MEAN PLT VOLUME 8.3 fl (7.5-11.1); MONO % 5.3 % (3.8-10.2); NEUT % 84.4 % (42.8-82.8); PLATELET COUNT 232 K/MM3 (134-434); RBC 4.06 M/mm3 (3.60-5.2); RDW 11.8 % (11.6-15.6); WHITE BLOOD COUNT 10.1 K/mm3 (4.0-10.0)
[2018-05-14 09:42] LABS: URINE APPEARANCE CLEAR; URINE BILIRUBIN NEGATIVE (<2.0 mg/dL); URINE COLOR YELLOW; URINE GLUCOSE (UA) NEGATIVE (NEGATIVE); URINE KETONE NEGATIVE (NEGATIVE); URINE LEUK ESTERASE NEGATIVE (NEGATIVE); URINE NITRITE NEGATIVE (NEGATIVE); URINE PROTEIN NEGATIVE (NEGATIVE); URINE UROBILINOGEN NEGATIVE mg/dL (0.2-1.0)
[2018-05-14 10:01] LABS: ALBUMIN 3.2 g/dl (3.4-5.0); ALK PHOS 58 U/L (45-117); ANION GAP 6 MMOL/L (8-16); BILIRUBIN,TOTAL 0.2 mg/dL (0.2-1); BLOOD UREA NITROGEN 14 mg/dL (7-18); CHLORIDE 106 mmol/L (98-107); CO2 26 mmol/L (21-32); CREATININE 0.7 mg/dL (0.55-1.3); GLUCOSE,RANDOM 80 mg/dL (74-106); POTASSIUM 4.4 mmol/L (3.5-5.1); SGOT/AST 21 U/L (15-37); SGPT/ALT 34 U/L (13-61); SODIUM 139 mmol/L (136-145); TOT PROT 6.6 g/dl (6.4-8.2)
--- NOTE | 2018-05-14 10:03 | PDOC ---
History of Present Illness - General Chief Complaint: Pain Stated Complaint: 7 WEEKS ACUTE ABDOMINAL PAIN Time Seen by Provider: 05/14/18 07:56 History Source: Patient Exam Limitations: No Limitations - History of Present Illness Initial Comments: 05/14/18 11:15 Patient is a 38-year-old female, A3, who presents to the emergency department today for lower abdominal pain starting early this morning. Patient states that her last menstrual cycle was the first week in March. She currently denies vaginal bleeding. She states that nothing relieves the pain. Denies fevers, chills, nausea, vomiting, back pain, frequency, urgency, hematuria, weakness and lightheadedness. Patient's last oral intake was approximately 9 PM last night. OB history: 2 pregnancies delivered to term vaginally. 3 previous miscarriages with the last occurring approximately 3 months ago. OB care: Follows [facility] at the clinic. Surgical history: To umbilical hernia repairs as an infant. Past History - Travel Traveled outside of the country in the last 30 days: No Close contact w/someone who was outside of country & ill: No - Past Medical History Allergies/Adverse Reactions: Allergies Allergy/AdvReac Type Severity Reaction Status Date / Time No Known Allergies Allergy Verified 05/14/18 07:43 Home Medications: Ambulatory Orders Ibuprofen [Motrin -] 600 mg PO QID #28 tablet 05/15/18 Ibuprofen [Motrin -] 600 mg PO QID #28 tablet 05/15/18 COPD: No - Reproductive History (#): 6 Para: 2 Therapeutic (s) & number: Yes (2) Spontaneous : 3 - Suicide/Smoking/Psychosocial Hx Smoking History: Current every day smoker Have you smoked in the past 12 months: No Number of Cigarettes Smoked Daily: 7 If you are a former smoker, when did you quit?: 2 weeks Information on smoking cessation initiated: No 'Breaking Loose' booklet given: 08/11/17 Hx Alcohol Use: No Drug/Substance Use Hx: No Substance Use Type: None Review of Systems - Review of Systems Able to Perform ROS?: Yes Comments:: 05/14/18 08:23 CONSTITUTIONAL: Absent: fever, chills, diaphoresis, generalized weakness, malaise, loss of appetite HEENT: Absent: rhinorrhea, nasal congestion, throat pain, throat swelling, difficulty swallowing, mouth swelling, ear pain, eye pain, visual Changes CARDIOVASCULAR: Absent: chest pain, loss of consciousness, palpitations, irregular heart rate, peripheral edema RESPIRATORY: Absent: cough, shortness of breath, dyspnea with exertion, orthopnea, wheezing, stridor, hemoptysis GASTROINTESTINAL: Present: lower abdominal pain Absent: abdominal distension, nausea, vomiting, diarrhea, constipation, melena, hematochezia GENITOURINARY: Absent: dysuria, frequency, urgency, hesitancy, hematuria, flank pain, genital pain MUSCULOSKELETAL: Absent: myalgia, arthralgia, joint swelling SKIN: Absent: rash, itching, pallor HEMATOLOGIC/IMMUNOLOGIC: Absent: easy bleeding, easy bruising, lymphadenopathy, frequent infections ENDOCRINE: Absent: unexplained weight gain, unexplained weight loss, heat intolerance, cold intolerance NEUROLOGIC: Absent: headache, focal weakness or paresthesias, dizziness, unsteady gait, seizure, mental status changes, bladder or bowel incontinence PSYCHIATRIC: Absent: anxiety, depression, suicidal or homicidal ideation, hallucinations. Is the patient limited Tongan proficient: No *Physical Exam - Vital Signs Last Vital Signs Temp Pulse Resp BP Pulse Ox 97.9 F 69 18 96/44 L 99 05/14/18 07:40 05/14/18 07:40 05/14/18 07:40 05/14/18 07:40 05/14/18 07:40 - Physical Exam Comments: 05/14/18 08:24 GENERAL: Well developed, well nourished. Awake and alert. No acute distress. HEENT: Normocephalic, atraumatic. PERRLA, EOMI. No conjunctival pallor. Sclera are non- icteric. Moist mucous membranes. Oropharynx is clear. NECK: Supple. Full ROM. No JVD. Carotid pulses 2+ and symmetric, without bruits. No thyromegaly. No lymphadenopathy. CARDIOVASCULAR: Regular rate and rhythm. No murmurs, rubs, or gallops. Distal pulses are 2+ and symmetric. PULMONARY: No evidence of respiratory distress. Lungs clear to auscultation bilaterally. No wheezing, rales or rhonchi. ABDOMINAL: TTP of the lower abdomen throughout all quadrants with guarding. Soft. Non- tender. Non-distended. No rebound. No organomegaly. Normoactive bowel sounds. PELVIC: External genitalia normal without lesions. Vaginal vault is with physiological odorless white discharge. Cervix is long and closed. (+) R adenexal tenderness. No CMT. Uterus is nontender and normal in size. Adnexa are nontender and without masses. MUSCULOSKELETAL Normal range of motion at all joints. No bony deformities or tenderness. No CVA tenderness. EXTREMITIES: No cyanosis. No clubbing. No edema. No calf tenderness. SKIN: Warm and dry. Normal capillary refill. No rashes. No jaundice. NEUROLOGICAL: Alert, awake, appropriate. Cranial nerves 2-12 intact. No deficits to light touch and temperature in face, upper extremities and lower extremities. No motor deficits in the in face, upper extremities and lower extremities. Normoreflexic in the upper and lower extremities. Normal speech. Toes are down- going bilaterally. Gait is normal without ataxia. PSYCHIATRIC: Cooperative. Good eye contact. Appropriate mood and affect. Moderate Sedation - Procedure Monitoring Vital Signs: Procedure Monitoring Vital Signs Temperature 97.9 F 05/14/18 07:40 Pulse Rate 69 05/14/18 07:40 Respiratory Rate 18 05/14/18 07:40 Blood Pressure 96/44 L 05/14/18 07:40 O2 Sat by Pulse Oximetry (%) 99 05/14/18 07:40 ED Treatment Course - LABORATORY CBC & Chemistry Diagram: 05/15/18 07:45 05/15/18 08:25 Medical Decision Making - Medical Decision Making 05/14/18 11:03 Pt is a 38 y/o F A3, who presents to the ED for lower abdominal pain since this morning around 4 am -On vaginal exam, pt with a closed cervix, white discharge. (+) R adnexal tenderness on bimanual exam -IV tylenol given with some relief of symptoms -H&H stable. hbg 12, hct 37 -WBC 10.4, 84 % neutrophils -Urine is unremarkable -TVUS shows a R adnexal mass with a gestational sac concerning for ectopic at this time. -Consulted with Dr. Acuna who states he will take the patient for surgery to remove the -Explained to patient the need for surgery to remove the ectopic as it is not a viable . Pt consents to the surgery. -IV fluids started -Pt admitted to Dr. Acuna and pt will go to the OR today. 05/14/18 13:52 BP's trending low; 60/30 - 80/60; concerned for leaking vs ruptured ectopic 2nd IV placed. NS boluses running at this time repeat cbc drawn: hbg 12 -->9 2 units PRBC ordered; Dr. Cleaning made aware Calling OR to have pt brought up now Bed side fast US positive; performed by Dr. Bustos *DC/Admit/Observation/Transfer Diagnosis at time of Disposition: Ectopic Qualifiers: Location of ectopic : tubal Intrauterine status: without intrauterine Laterality: right Qualified Code(s): O00.101 - Right tubal without intrauterine - Discharge Dispostion Disposition: HOME Condition at time of disposition: Stable Decision to Admit order: Yes - Prescriptions - Referrals - Patient Instructions - Post Discharge Activity
[2018-05-14] MEDS ORDERED: SODIUM CHLORIDE 1,000 ML IV STA ×3 (11:21→13:42)
[2018-05-14] MEDS ORDERED: ONDANSETRON 4 MG/2 ML VIAL IVPUSH ONE (11:36)
[2018-05-14] MEDS ORDERED: morphine CARPU-JECT 4 MG/1 ML DISP.SYRIN IVPUSH ONE ×2 (11:36→12:12)
[2018-05-14] MEDS ORDERED: morphine SULFATE 4 MG/ML VIAL ONE ×2 (11:38→12:14)
[2018-05-14] MEDS ORDERED: ONDANSETRON 4 MG/2 ML VIAL ONE (12:31)
[2018-05-14 12:48] LABS: INR 1.06 (0.83-1.09); PROTHROMBIN TIME (PATIENT) 12.5 SEC (9.7-13.0)
[2018-05-14] MEDS ORDERED: ONDANSETRON 4 MG/2 ML VIAL IVPUSH PRN ×2 (13:04→16:08)
[2018-05-14] MEDS ORDERED: MIDAZOLAM HCL 2 MG/2 ML SINGLE DOSE VIAL ONE (13:08)
[2018-05-14] MEDS ORDERED: DEXAMETHASONE SOD PHOSPHATE 4 MG/1 ML VIAL ONE (13:10)
[2018-05-14] MEDS ORDERED: KETOROLAC TROMETHAMINE 30 MG/1 ML VIAL ONE (13:10)
[2018-05-14] MEDS ORDERED: ROCURONIUM BROMIDE 50 MG/5 ML VIAL ONE (13:11)
[2018-05-14] MEDS ORDERED: SUCCINYLCHOLINE CHLORIDE 200 MG/10 ML VIAL ONE (13:11)
[2018-05-14] MEDS ORDERED: PROPOFOL 20 ML ONE ×2 (13:11)
[2018-05-14] MEDS ORDERED: GLYCOPYRROLATE 0.2 MG/1 ML VIAL ONE (13:12)
[2018-05-14] MEDS ORDERED: NEOSTIGMINE METHYLSULFATE 0.5 MG/ML - 10 ML MDV ONE (13:12)
[2018-05-14] MEDS ORDERED: LACTATED RINGERS SOLUTION 1,000 ML IV SCH (13:15)
[2018-05-14 13:42] LABS: BASO % 0.7 % (0-2.0); EOS % 0.5 % (0-4.5); HEMATOCRIT 27.2 % (32.4-45.2); MCH 30.7 pg (25.7-33.7); MCHC 33.1 g/dl (32.0-36.0); MEAN CELL VOLUME 92.8 fl (80-96); MEAN PLT VOLUME 8.5 fl (7.5-11.1); MONO % 5.8 % (3.8-10.2); PLATELET COUNT 189 K/MM3 (134-434); RBC 2.93 M/mm3 (3.60-5.2); RDW 11.9 % (11.6-15.6); WHITE BLOOD COUNT 13.2 K/mm3 (4.0-10.0)
--- NOTE | 2018-05-14 14:56 | HP ---
Past Medical History - Primary Care Physician PCP:: Ryan De Anda - Admission Chief Complaint: RTL pain , r/o ectopic History of Present Illness: 38 yo f lmp first week of March , c/p RLQ pain since this am , hcg 62802, sono no iup, complex 2 cm rt adnexa complez mass consistant with ectopic , admitted for laparoscopy , rt salpingectomy , risks of procedure including but not limited to infection, bleeding, injury to surrounding tissue, post op compkication discussed , risks of infertility dsicussed History Source: Patient Limitations to Obtaining History: No Limitations - Past Medical History ...: 6 ...Para: 2 ...Term: 2 ...Induced : 3 Heme/Onc: Yes: Anemia - Past Surgical History Hx Myomectomy: No Hx Transabdominal Cerclage: No - Smoking History Smoking history: Current every day smoker Have you smoked in the past 12 months: No Aproximately how many cigarettes per day: 7 If you are a former smoker, when did you quit?: 2 weeks - Alcohol/Substance Use Hx Alcohol Use: No - Social History History of Recent Travel: No Home Medications - Allergies Allergies/Adverse Reactions: Allergies Allergy/AdvReac Type Severity Reaction Status Date / Time No Known Allergies Allergy Verified 05/14/18 07:43 - Home Medications Home Medications: Ambulatory Orders NK [No Known Home Medication] 01/15/18 Review of Systems - Review of Systems Constitutional: reports: No Symptoms Eyes: reports: No Symptoms HENT: reports: No Symptoms Neck: reports: No Symptoms Cardiovascular: reports: No Symptoms Respiratory: reports: No Symptoms Physical Exam-[employer] Vital Signs: Vital Signs Temperature 98.6 F 05/14/18 11:34 Pulse Rate 90 05/14/18 11:34 Respiratory Rate 20 05/14/18 11:34 Blood Pressure 107/74 05/14/18 11:34 O2 Sat by Pulse Oximetry (%) 100 05/14/18 11:34 Constitutional: Yes: Well Nourished, No Distress, Calm Eyes: Yes: WNL, Conjunctiva Clear, EOM Intact HENT: Yes: WNL, Atraumatic, Normocephalic Neck: Yes: WNL, Supple, Trachea Midline Cardiovascular: Yes: WNL, Regular Rate and Rhythm Respiratory: Yes: WNL, Regular, CTA Bilaterally Gastrointestinal: Yes: WNL ...Rectal Exam: Yes: WNL Renal/: Yes: WNL External Genitalia: Yes: Normal Vaginal Exam: Yes: Normal Cervix: Yes: Normal Uterus: Yes: Enlarged, Soft Adnexa: Tender: Right, Not Palpable: Left, Right Breast(s): Yes: WNL Musculoskeletal: Yes: WNL Extremities: Yes: WNL Integumentary: Yes: WNL Neurological: Yes: WNL, Alert, Oriented ...Motor Strength: WNL Psychiatric: Yes: WNL, Alert, Oriented Labs: CBC, BMP 05/14/18 13:15 05/14/18 09:00 Problem List - Problem (1) Hemoperitoneum due to rupture of right tubal ectopic Code(s): O00.101 - RIGHT TUBAL WITHOUT INTRAUTERINE ; K66.1 - HEMOPERITONEUM Assessment/Plan plan admit for laparoscopic salpingectomy D&C , possible laparotomy
[2018-05-14] MEDS ORDERED: ePHEDrine SULFATE 50 MG/1 ML AMPULE ONE (15:03)
[2018-05-14] MEDS ORDERED: ceFAZolin SODIUM 1 GM VIAL ONE (15:06)
[2018-05-14] MEDS ORDERED: BUPIVACAINE HCL/PF 0.5% (5MG/ML) 10 ML VIAL ONE (15:16)
[2018-05-14] MEDS ORDERED: DESFLURANE GAS 240 ML BOTTLE IH ONE (15:16)
[2018-05-14] MEDS ORDERED: IBUPROFEN 800 MG/8 ML IJ IVPB PRN (16:08)
[2018-05-14] MEDS ORDERED: IBUPROFEN 600 MG TABLET (FP) PO PRN (16:08)
[2018-05-14] MEDS ORDERED: ELECTROLYTE-148 SOLN 1,000 ML IV SCH (16:15)
[2018-05-14 18:22] VITALS: BMI 22.2
[2018-05-14] MEDS: oxyCODONE HCL 5 MG TABLET PO PRN (23:01)
[2018-05-15] MEDS: oxyCODONE HCL 5 MG TABLET PO PRN (02:57)
[2018-05-15 08:24] VITALS: BP 101/49; PULSE 74; TEMP 99.3
[2018-05-15 08:47] LABS: BASO % 0.2 % (0-2.0); EOS % 0.1 % (0-4.5); HEMATOCRIT 34.2 % (32.4-45.2); HEMOGLOBIN 11.5 GM/dL (10.7-15.3); LYMPH % 6.4 % (8-40); MCH 30.1 pg (25.7-33.7); MCHC 33.5 g/dl (32.0-36.0); MEAN CELL VOLUME 89.8 fl (80-96); MEAN PLT VOLUME 8.7 fl (7.5-11.1); MONO % 8.1 % (3.8-10.2); NEUT % 85.2 % (42.8-82.8); PLATELET COUNT 156 K/MM3 (134-434); RBC 3.81 M/mm3 (3.60-5.2); RDW 13.2 % (11.6-15.6); WHITE BLOOD COUNT 14.5 K/mm3 (4.0-10.0)
[2018-05-15 09:05] LABS: ALBUMIN 2.4 g/dl (3.4-5.0); ALK PHOS 42 U/L (45-117); ANION GAP 7 MMOL/L (8-16); BILIRUBIN,TOTAL 1.6 mg/dL (0.2-1); BLOOD UREA NITROGEN 16 mg/dL (7-18); CHLORIDE 109 mmol/L (98-107); CO2 22 mmol/L (21-32); CREATININE 0.5 mg/dL (0.55-1.3); GLUCOSE,RANDOM 72 mg/dL (74-106); POTASSIUM 3.6 mmol/L (3.5-5.1); SGOT/AST 25 U/L (15-37); SGPT/ALT 25 U/L (13-61); SODIUM 138 mmol/L (136-145); TOT PROT 4.7 g/dl (6.4-8.2)
--- NOTE | 2018-05-15 12:04 | OP ---
DATE OF OPERATION: 05/14/2018 PREOPERATIVE DIAGNOSIS: Rule out ectopic . POSTOPERATIVE DIAGNOSES: Rule out ectopic ; leaking right tubal ectopic . PROCEDURE: Dilation and curettage; laparoscopy; right salpingectomy; and evacuation of hemoperitoneum. SURGEON: Tim Curry MD DESK OPERATOR: Christinao Blake MD ANESTHESIA: General. ANESTHESIOLOGIST: Manolo Morrell MD ESTIMATED BLOOD LOSS INTRAOPERATIVELY: About 25 mL. OPERATING REPORT: The patient was taken to the operating room and, under adequate general anesthesia in dorsal lithotomy position, examination under anesthesia revealed external genitalia to be normal. Vagina was normal; no prolapse. Cervix was closed. Uterus was enlarged, approximately 10-week size. Adnexa had no masses palpable. Then, with the weighted speculum in the vagina, the anterior lip of the cervix was grasped with a single-toothed tenaculum and uterine cavity was sounded to 10 cm. Cervix was slightly dilated and, with a smooth curette, the uterine cavity was curetted. Then, Hulka was inserted into the uterine cavity and Oconnell was inserted and the patient was prepped and draped for laparoscopy. A small infraumbilical skin incision was made. Under direct vision, the 5-mm trocar was inserted through the umbilical area and then there was hemoperitoneum. Then, a 10-mm trocar was introduced under direct vision through the left hypogastric area and a 5-mm through the right hypogastric area. The hemoperitoneum was suctioned and then the uterus was slightly enlarged. The left tube was normal. Both ovaries were normal. The right tube has a large ectopic with leaking from the ectopic site. No cul-de-sac adhesions. Upper abdomen was normal. Because the tube was very enlarged and leaking at the midportion, then the right tube was grasped with a grasper and, along the mesosalpinx with bipolar cautery, cauterized and then the right tube was removed. Then, EndoCatch was inserted through the 10-mm trocar and then the right tube was placed in the EndoCatch and removed through the 10-mm trocar. Then, pelvic cavity was irrigated and all the blood was suctioned, then the abdomen was emptied of the gases. The left hypogastric incision was closed, the fascia with interrupted suture of 3-0 Vicryl and then the skin was closed with glue and interrupted 4-0 Biosyn suture. The patient tolerated the procedure well, left the OR in good condition. TIM CURRY M.D. [id number]
--- NOTE | 2018-05-15 13:16 | PN ---
Progress Note (short form) - Note Progress Note: pod1 doing well , has mild incisional pain ,passing gas, voids ok CBC, BMP 05/15/18 07:45 05/15/18 08:25 Last Vital Signs Temp Pulse Resp BP Pulse Ox 99.3 F 74 20 101/49 L 100 05/15/18 08:23 05/15/18 08:23 05/15/18 08:23 05/15/18 08:23 05/14/18 21:00 abdomen soft, no distension, no cva ,no rebound incision dry, clean no calf tenderness no vaginal bleeding plan d/c home, follow up [facility] 2 weeks instruction given Problem List - Problems (1) Hemoperitoneum due to rupture of right tubal ectopic Code(s): O00.101 - RIGHT TUBAL WITHOUT INTRAUTERINE ; K66.1 - HEMOPERITONEUM
--- NOTE | 2018-05-18 12:47 | PATH ---
Surgical Pathology Report Patient Name: PAZ MARQUES [facility]. Rec. 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 PHYSICIAN EMERGENCY DEPT Specimen(s) Received A: ENDOMETRIAL CURETTINGS B: RIGHT FALLOPIAN TUBE, ECTOPIC Clinical History Ectopic Final Diagnosis A. ENDOMETRIAL CURETTINGS, DILATION AND CURETTAGE: FRAGMENTS OF GESTATIONAL ENDOMETRIUM, DECIDUA, AND SCANT BENIGN CERVICAL TISSUE. B. FALLOPIAN TUBE, RIGHT, ECTOPIC , LAPAROSCOPIC SALPINGECTOMY: CHORIONIC VILLI IN A BACKGROUND OF HEMORRHAGE ADHERENT TO DISRUPTED PROXIMAL FALLOPIAN TUBE CONSISTENT WITH ECTOPIC . Electronically Signed Roxy Alan M.D. Gross Description A. Received in formalin labeled "endometrial curettings," is a 4.3 x 4.0 x 0.4 cm aggregate of garcia-brown soft tissue fragments. The formalin is filtered and the specimen is entirely submitted in 3 cassettes. B. Received in formalin labeled "right fallopian tube with ectopic ," is a 6 cm in length fimbriated fallopian tube with a large defect at the proximal aspect of the tube. There is red-brown blood clot attached to the defect. Separately received within the same container is a 2.5 x 2.5 x 0.4 cm aggregate of garcia-brown soft tissue, possibly consistent with villous tissue. No somatic tissue is identified. Therapy Technician sections are submitted in 3 cassettes as follows: 1-fimbria and cross sections of distal fallopian tube; 2-sections from proximal defect; 3-separately received soft tissue. /05/16/2018 saudi05/16/2018
== END 2018-05-15 13:55 | disposition home or self-care (01) | DRG 545 ==
LOC: JER 07:36 → JASUSAT 11:10 → J3W 17:56
PROVIDERS: ADMIT Obstetrics & Gynecology; ATTEND Obstetrics & Gynecology
PROC: 10T24ZZ Resection of Products of Conception, Ectopic, Percutaneous Endoscopic Approach (ICD-10-PCS; 2018-05-14)
PROC: 0WCG4ZZ Extirpation of Matter from Peritoneal Cavity, Percutaneous Endoscopic Approach (ICD-10-PCS; 2018-05-14)
PROC: 0UT54ZZ Resection of Right Fallopian Tube, Percutaneous Endoscopic Approach (ICD-10-PCS; principal; 2018-05-14 15:00)
DX: O00.101 Right tubal pregnancy without intrauterine pregnancy (principal); F17.210 Nicotine dependence, cigarettes, uncomplicated; K66.1 Hemoperitoneum
CPT/HCPCS: 36415; 36430; 36511; 76817-TC; 80053; 81003; 84702; 85025; 85610; 85730; 86850; 86900; 86901; 86922; 88305-TC; 94760; 99285-25; J0131; J7030; P9038; P9058

== ENCOUNTER 2018-09-18 21:23 | Emergency (ER) | payer OTHER ==
[2018-09-18 21:30] VITALS: BP 102/68; PULSE 79; TEMP 97.6; BMI 22.4
[2018-09-18 21:57] LABS: PH,URINE 6.5 (5.0-8.0); URINE APPEARANCE CLOUDY; URINE BILIRUBIN NEGATIVE (NEGATIVE); URINE COLOR YELLOW; URINE GLUCOSE (UA) NEGATIVE (NEGATIVE); URINE KETONE NEGATIVE (NEGATIVE); URINE LEUK ESTERASE 3+ (NEGATIVE); URINE NITRITE NEGATIVE (NEGATIVE); URINE PROTEIN NEGATIVE (NEGATIVE); URINE UROBILINOGEN 0.2 mg/dL (0.2-1.0); YEAST REVIEW (NEGATIVE)
--- NOTE | 2018-09-18 22:50 | PDOC ---
History of Present Illness - General Chief Complaint: Urinary Problem Stated Complaint: uti Time Seen by Provider: 09/18/18 21:33 - History of Present Illness Initial Comments: 09/18/18 22:49 38-year-old female without comorbidities presents for evaluation of dysuria times one day without systemic symptoms Past History - Past Medical History Allergies/Adverse Reactions: Allergies Allergy/AdvReac Type Severity Reaction Status Date / Time No Known Allergies Allergy Verified 05/14/18 07:43 Home Medications: Ambulatory Orders Ibuprofen [Motrin -] 600 mg PO QID #28 tablet 05/15/18 Ibuprofen [Motrin -] 600 mg PO QID #28 tablet 05/15/18 Nitrofurantoin Monohyd/M-Cryst [Macrobid -] 100 mg PO BID #14 capsule 09/18/18 Anemia: Yes Asthma: No Cancer: No Cardiac Disorders: No CVA: No COPD: No CHF: No Dementia: No Diabetes: No GI Disorders: No Disorders: No HTN: No Hypercholesterolemia: No Liver Disease: No Seizures: No Thyroid Disease: No - Surgical History Abdominal Surgery: No Appendectomy: No Cardiac Surgery: No Cholecystectomy: No Lung Surgery: No Neurologic Surgery: No Orthopedic Surgery: No - Reproductive History (#): 6 Para: 2 Cervical CA: No Dysfunctional Uterine Bleeding: No Ectopic : Yes (today) Endometrial CA: No Polycystic Ovaries: No Therapeutic (s) & number: Yes (2) Tubal Ligation: No Spontaneous : 3 - Suicide/Smoking/Psychosocial Hx Smoking History: Current every day smoker Have you smoked in the past 12 months: No Number of Cigarettes Smoked Daily: 10 If you are a former smoker, when did you quit?: 2 weeks Information on smoking cessation initiated: Yes 'Breaking Loose' booklet given: 08/11/17 Hx Alcohol Use: No Drug/Substance Use Hx: No Substance Use Type: None Review of Systems - Review of Systems Constitutional: No: Fever : Yes: Dysuria *Physical Exam - Vital Signs Last Vital Signs Temp Pulse Resp BP Pulse Ox 97.6 F 79 20 102/68 100 09/18/18 21:28 09/18/18 21:28 09/18/18 21:28 09/18/18 21:28 09/18/18 21:28 - Physical Exam Comments: 09/18/18 22:49 HEAD: NC/AT EYES: Conjuntiva clear MS: Full ROM in all joints without edema NEUROLOGIC: No gross sensory or motor deficits, NVID SKIN: Normal color and temperature no lesions or rashes Medical Decision Making - Medical Decision Making 09/18/18 22:54 Macrobid for UTI *DC/Admit/Observation/Transfer Diagnosis at time of Disposition: Urinary tract infection - Discharge Dispostion Disposition: HOME Condition at time of disposition: Stable Decision to Admit order: No - Prescriptions Prescriptions: Nitrofurantoin Monohyd/M-Cryst [Macrobid -] 100 mg PO BID #14 capsule - Referrals Referrals: Gino Crespo MD [Staff Physician] - - Patient Instructions Printed Discharge Instructions: Urinary Tract Infection Additional Instructions: Please take the antibiotics as directed. Follow-up with internal medicine in one to 2 days for further evaluation and treatment options. And return to the emergency room should symptoms worsen. - Post Discharge Activity
[2018-09-18 22:52] LABS: HCG,QUALITATIVE URINE Negative
[2018-09-18 23:10] LABS: EPI CELLS 1 /HPF (0-5/HPF); URINE BACTERIA 42 /hpf (NEGATIVE); URINE RBC 5 /hpf (0-4); URINE WBC 225 /hpf (0-5)
== END 2018-09-18 22:58 | disposition home or self-care (01) ==
LOC: JERFT 21:23
DX: N39.0 Urinary tract infection, site not specified (principal)
CPT/HCPCS: 81003; 84703; 87086; 99281-25

== ENCOUNTER 2018-12-04 10:23 | Emergency (ER) | payer OTHER ==
[2018-12-04 10:34] VITALS: BP 97/61; PULSE 67; TEMP 98.5; BMI 22.0
--- NOTE | 2018-12-04 11:42 | PDOC ---
History of Present Illness - General Chief Complaint: Headache Stated Complaint: MIGRAINE X3 DAYS Time Seen by Provider: 12/04/18 10:54 History Source: Patient Exam Limitations: No Limitations - History of Present Illness Initial Comments: 12/04/18 14:41 Patient is here with complaints of persistent frontal and ethmoid sinus pain. was seen at [facility] yesterday and prescribed antibiotics to be taken when necessary if symptoms persist for sinus infection. Patient states pain has not resolved but did not fill antibiotics and came for further evaluation. had viral meningitis 10 years ago and admits to being mildly paranoid about headache pain. Denies neurologic changes, no fevers, pain is primarily frontal with posterior sinus drainage. Has taken ibuprofen with some resolved. Severity: Yes: moderate Associated Symptoms: reports: fever/chills, loss of consciousness Past History - Travel Traveled outside of the country in the last 30 days: No Close contact w/someone who was outside of country & ill: No - Past Medical History Allergies/Adverse Reactions: Allergies Allergy/AdvReac Type Severity Reaction Status Date / Time No Known Allergies Allergy Verified 12/04/18 10:34 Home Medications: Ambulatory Orders Ibuprofen [Motrin -] 600 mg PO QID #28 tablet 05/15/18 Ibuprofen [Motrin -] 600 mg PO QID #28 tablet 05/15/18 Nitrofurantoin Macrocrystal [Nitrofurantoin] 100 mg PO BID #14 capsule 09/18/18 Nitrofurantoin Monohyd/M-Cryst [Macrobid -] 100 mg PO BID #14 capsule 09/18/18 Nitrofurantoin Monohyd/M-Cryst [Macrobid -] 100 mg PO BID #14 capsule 09/18/18 Anemia: Yes Asthma: No Cancer: No Cardiac Disorders: No CVA: No COPD: No CHF: No Dementia: No Diabetes: No GI Disorders: No Disorders: No HTN: No Hypercholesterolemia: No Liver Disease: No Seizures: No Thyroid Disease: No - Surgical History Abdominal Surgery: No Appendectomy: No Cardiac Surgery: No Cholecystectomy: No Lung Surgery: No Neurologic Surgery: No Orthopedic Surgery: No - Reproductive History (#): 6 Para: 2 Cervical CA: No Dysfunctional Uterine Bleeding: No Ectopic : Yes (today) Endometrial CA: No Polycystic Ovaries: No Therapeutic (s) & number: Yes (2) Tubal Ligation: No Spontaneous : 3 - Suicide/Smoking/Psychosocial Hx Smoking History: Never smoked Have you smoked in the past 12 months: No Number of Cigarettes Smoked Daily: 10 If you are a former smoker, when did you quit?: 2 weeks 'Breaking Loose' booklet given: 08/11/17 Hx Alcohol Use: No Drug/Substance Use Hx: No Substance Use Type: None Review of Systems - Review of Systems Able to Perform ROS?: Yes Is the patient limited Namibian proficient: Yes Constitutional: Yes: Symptoms Reported, See HPI, Chills, Fever, Malaise HEENTM: Yes: Symptoms Reported, See HPI, Nose Congestion, Throat Pain, Other ( facial pain with swelling to sinus) Respiratory: Yes: Symptoms reported, See HPI, Cough. No: Shortness of Breath, Wheezing Cardiac (ROS): No: Symptoms Reported ABD/GI: Yes: See HPI. No: Symptoms Reported Neurological: Yes: Symptoms reported, See HPI, Headache (frontal ) *Physical Exam - Vital Signs Last Vital Signs Temp Pulse Resp BP Pulse Ox 98.5 F 67 18 97/61 98 12/04/18 10:30 12/04/18 10:30 12/04/18 10:30 12/04/18 10:30 12/04/18 10:30 - Physical Exam General Appearance: Yes: Nourished, Appropriately Dressed, Apparent Distress, Mild Distress HEENT: positive: KITA, TMs Normal (congested but landmarks easily), Pharynx Normal, Nasal Congestion, Rhinorrhea, Sinus Tenderness (fullness and tenderness to frontal ethmoid and maxillary sinuses, with thick whitish drainage noted in posterior pharynx, with some mild tender lymphadenopathy.). negative: Normal ENT Inspection, Pharyngeal Erythema, Tonsillar Exudate Neck: positive: Supple, Lymphadenopathy (R), Lymphadenopathy (L). 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 Prescribed Augmentin from nga Chatman which patient will fill. Recommended continued over-the -counter medications and conservative measures for sinus drainage and symptomatic relief *DC/Admit/Observation/Transfer Diagnosis at time of Disposition: Sinus headache - Discharge Dispostion Disposition: HOME Condition at time of disposition: Stable Decision to Admit order: No - Referrals - Patient Instructions Printed Discharge Instructions: DI for Sinusitis Additional Instructions: Rest, drink lots of fluids: Teas, water, soups Saltwater gargles. Consider humidifier in room at night Steamy showers/seem to face break up mucus Avoid contact with allergens, exposure to pollens, close windows on a windy day Lots of handwashing and good hygiene Tylenol or Motrin for fever and pain Start Augmentin as directed by Bárbara Use all [id number] medications including NyQuil, DayQuil, something with decongestant and pain relief Followup with private physician in one to 2 days as needed Consider following up with an roving court reporter/mutuel department manager for skin testing and possible allergy shots Return to emergency department for worsened symptoms, fevers, dehydration - Post Discharge Activity Forms/Work/School Notes: Back to Work
== END 2018-12-04 11:40 | disposition home or self-care (01) ==
LOC: JERFT 10:23
DX: J32.9 Chronic sinusitis, unspecified (principal); R51 Headache
CPT/HCPCS: 99281-25

== ENCOUNTER 2018-12-06 14:37 | Emergency (ER) | payer OTHER ==
--- NOTE | 2018-12-06 14:40 | PDOC ---
Rapid Medical Evaluation Time Seen by Provider: 12/06/18 14:38 Medical Evaluation: Allergies Allergy/AdvReac Type Severity Reaction Status Date / Time No Known Allergies Allergy Verified 12/04/18 10:34 12/06/18 14:38 HPI: has iqbal and wants to "r/o anyting going on inside her head" dz with sinusits and has IQBAL x2 days PE: No gross deficits ORDERS: U Preg Discharge Disposition - Diagnosis Headache - Referrals - Patient Instructions - Post Discharge Activity
[2018-12-06 14:47] VITALS: BP 104/67; PULSE 52; TEMP 98.5; BMI 21.1
[2018-12-06] MEDS ORDERED: ACETAMINOPHEN/CAFFEINE/BUTALBITAL 1 TAB PO ONE (15:29)
--- NOTE | 2018-12-06 15:42 | PDOC ---
History of Present Illness - General Chief Complaint: Headache Stated Complaint: HEADACHE/ STIFF NECK Time Seen by Provider: 12/06/18 14:38 History Source: Patient Exam Limitations: Clinical Condition - History of Present Illness Initial Comments: 12/06/18 16:08 Patient with no past medical history present with complaint of five-day history of worsening headache with intermittent dizziness and and photophobia. Patient was seen in urgent care 4 days ago for symptoms and was diagnosed with sinusitis and discharged with antibiotics which she never took. Patient came to the ED 3 days ago for same symptoms and was again diagnosis sinusitis and advised to take an antibiotics patient came back to ED today because she fell is something going on in her head does causing headache as she does not feel she has nasal congestion to be sinus infection. Denies nausea, vomiting, fever or chills. Patient report history of meningitis and wants to make sure she doesn 't have anything going on in her head during go symptoms are not the same as when she had meningitis Timing/Duration: reports: waxing and waning Past History - Past Medical History Allergies/Adverse Reactions: Allergies Allergy/AdvReac Type Severity Reaction Status Date / Time No Known Allergies Allergy Verified 12/06/18 14:44 Home Medications: Ambulatory Orders Ibuprofen [Motrin -] 600 mg PO QID #28 tablet 05/15/18 Ibuprofen [Motrin -] 600 mg PO QID #28 tablet 05/15/18 Nitrofurantoin Macrocrystal [Nitrofurantoin] 100 mg PO BID #14 capsule 09/18/18 Nitrofurantoin Monohyd/M-Cryst [Macrobid -] 100 mg PO BID #14 capsule 09/18/18 Nitrofurantoin Monohyd/M-Cryst [Macrobid -] 100 mg PO BID #14 capsule 09/18/18 Butalb/Acetaminophen/Caffeine [Fioricet 50-300-40 mg Capsule] 1 each PO Q6H PRN #20 capsule 12/06/18 Anemia: Yes Asthma: No Cancer: No Cardiac Disorders: No CVA: No COPD: No CHF: No Dementia: No Diabetes: No GI Disorders: No Disorders: No HTN: No Hypercholesterolemia: No Liver Disease: No Seizures: No Thyroid Disease: No - Surgical History Abdominal Surgery: No Appendectomy: No Cardiac Surgery: No Cholecystectomy: No Lung Surgery: No Neurologic Surgery: No Orthopedic Surgery: No - Reproductive History (#): 6 Para: 2 Cervical CA: No Dysfunctional Uterine Bleeding: No Ectopic : Yes (today) Endometrial CA: No Polycystic Ovaries: No Therapeutic (s) & number: Yes (2) Tubal Ligation: No Spontaneous : 3 - Suicide/Smoking/Psychosocial Hx Smoking History: Never smoked Have you smoked in the past 12 months: No Number of Cigarettes Smoked Daily: 10 If you are a former smoker, when did you quit?: 2 weeks 'Breaking Loose' booklet given: 08/11/17 Hx Alcohol Use: No Drug/Substance Use Hx: No Substance Use Type: None Neuro Specific PMHX - Complaint Specific PMHX Migraine: Yes Multiple Sclerosis: No Neuropathy: No TIA: No Review of Systems - Review of Systems Able to Perform ROS?: Yes Is the patient limited Guyanese proficient: No Constitutional: No: Chills, Fever, Malaise, Weakness HEENTM: Yes: Symptoms Reported, See HPI, Other (photophobia). No: Eye Pain, Blurred Vision, Tearing, Recent change in vision, Double Vision, Cataracts, Ear Pain, Ocular Prothesis, Ear Discharge, Nose Pain, Nose Congestion, Tinnitus, Nose Bleeding, Hearing Loss, Throat Pain, Throat Swelling, Mouth Pain, Dental Problems, Difficulty Swallowing, Mouth Swelling Respiratory: No: Symptoms reported, See HPI, Cough, Orthopnea, Shortness of Breath, SOB with Exertion, SOB at Rest, Stridor, Wheezing, Productive cough, Hemoptysis, Other Cardiac (ROS): No: Symptoms Reported, See HPI, Chest Pain, Edema, Irregular Heart Rate, Lightheadedness, Palpitations, Syncope, Chest Tightness, Other ABD/GI: No: Symptoms Reported, See HPI, Nausea, Vomiting Integumentary: No: Symptoms Reported Neurological: Yes: Symptoms reported, See HPI, Headache, Dizziness (intermittent ). No: Numbness, Paresthesia, Seizure, Unsteady Gait, Ataxia All Other Systems: Reviewed and Negative *Physical Exam - Vital Signs Last Vital Signs Temp Pulse Resp BP Pulse Ox 98.5 F 52 L 16 104/67 99 12/06/18 14:44 12/06/18 14:44 12/06/18 14:44 12/06/18 14:44 12/06/18 14:44 - Physical Exam Comments: 12/06/18 15:39 GENERAL: Well developed, well nourished. Awake and alert. No acute distress. HEENT: Mildly left nasal congestion. Normocephalic, atraumatic. PERRLA, EOMI. No conjunctival pallor. Sclera are non-icteric. Moist mucous membranes. Oropharynx is clear. NECK: Supple. Full ROM. No JVD. No thyromegaly. No lymphadenopathy. CARDIOVASCULAR: Regular rate and rhythm. No murmurs, rubs, or gallops. Distal pulses are 2+ and symmetric. PULMONARY: No evidence of respiratory distress. Lungs clear to auscultation bilaterally. No wheezing, rales or rhonchi. ABDOMINAL: Soft. Non-tender. Non-distended. No rebound or guarding. No organomegaly. Normoactive bowel sounds. MUSCULOSKELETAL Normal range of motion at all joints. No bony deformities . EXTREMITIES: No cyanosis. No clubbing. SKIN: Warm and dry. Normal capillary refill. No rashes. No jaundice. NEUROLOGICAL: Alert, awake, appropriate. Cranial nerves 2-12 intact. No motor deficits in the in face, upper extremities and lower extremities. Normal speech. Toes are down- going bilaterally. Gait is normal without ataxia. Normal finger to nose to finger coordination. Normal tandem walking. Normal heel-to-toe walking. PSYCHIATRIC: Cooperative. Good eye contact. Appropriate mood and affect. General Appearance: Yes: Nourished, Appropriately Dressed. No: Apparent Distress ED Treatment Course - RADIOLOGY Radiology Studies Ordered: Category Date Time Status HEAD CT WITHOUT CONTRAST [CT] Stat CT Scan 12/06/18 15:33 Ordered Medical Decision Making - Medical Decision Making 12/06/18 16:11 Patient with no past medical history present with complaint of five-day history of worsening headache with intermittent dizziness and and photophobia. Patient was seen in urgent care 4 days ago for symptoms and was diagnosed with sinusitis and discharged with antibiotics which she never took. Patient came to the ED 3 days ago for same symptoms and was again diagnosis sinusitis and advised to take an antibiotics patient came back to ED today because she fell is something going on in her head does causing headache as she does not feel she has nasal congestion to be sinus infection. Denies nausea, vomiting, fever or chills. Patient report history of meningitis and wants to make sure she doesn 't have anything going on in her head during go symptoms are not the same as when she had meningitis Medical exam significant for mild left nasal congestion otherwise unremarkable exam. Normal neuro exam. Symptoms likely migraine headache with aura versus sinusitis. Urine hCG ordered. Head CT without contrast ordered if negative to rule out acute renal pathology. Fioricet 1 tab ordered for migraine 12/06/18 17:[address] without contrast unremarkable with no acute pathology. Patient symptoms likely migraine headache caused by sinusitis. Patient be discharged home to continue previously prescribed antibiotics and will add Fioricet as needed for headache with neurology follow-up. Patient is stable for discharge *DC/Admit/Observation/Transfer Diagnosis at time of Disposition: Headache Qualifiers: Headache type: unspecified Headache chronicity pattern: acute headache Intractability: not intractable Qualified Code(s): R51 - Headache - Discharge Dispostion Disposition: HOME Condition at time of disposition: Stable Decision to Admit order: No - Prescriptions Prescriptions: Butalb/Acetaminophen/Caffeine [Fioricet 50-300-40 mg Capsule] 1 each PO Q6H PRN #20 capsule PRN Reason: headache - Referrals Referrals: Javier Alfaro MD [Staff Physician] - - Patient Instructions Printed Discharge Instructions: Migraine -- Adult, DI for Sinus Headache Additional Instructions: Your head CAT scan was normal. The symptoms could be caused by migraine headache or sinus headache. Continue with previously prescribed antibiotics. Take prescribed new medication as needed for headache. Follow-up referred neurology if no improvement in 2 days - Post Discharge Activity
[2018-12-06] MEDS ORDERED: ACETAMINOPHEN/CAFFEINE/BUTALBITAL 1 TAB ONE (15:44)
== END 2018-12-06 17:15 | disposition home or self-care (01) ==
LOC: JERFT 14:37
DX: R51 Headache (principal)
CPT/HCPCS: 70450-TC; 84703; 99281-25

== ENCOUNTER 2019-12-01 10:18 | Emergency (ER) | payer OTHER ==
[2019-12-01 10:24] VITALS: TEMP 98.9; BMI 24.2
[2019-12-01] MEDS ORDERED: ACETAMINOPHEN 1000 MG/100 ML VIAL (NON FORMULARY) IVPB ONE (11:24)
[2019-12-01] MEDS ORDERED: ACETAMINOPHEN INJECTION 100 ML IVPB ONE (11:31)
--- NOTE | 2019-12-01 11:41 | PDOC ---
History of Present Illness - General Chief Complaint: Pain Stated Complaint: ABDOMINAL PAIN - History of Present Illness Initial Comments: 39 yo A4 with PMH of 3 scheduled abortions and 1 ruptured ectopic requiring right salpingectomy. She is being seein for lower abdominal cramping for the last 2 days. She describes it as a 4/10 left lower quadrant cramp/pressure that does not radiate. She endorses tender breasts, non-odorous white vaginal discharge, polyuria, b/l blurry vision, headaches. She denies fever, chills, n/v/d, cp, sob, vaginal bleeding. 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 Past History - Medical History Allergies/Adverse Reactions: Allergies Allergy/AdvReac Type Severity Reaction Status Date / Time No Known Allergies Allergy Verified 12/06/18 14:44 Home Medications: Ambulatory Orders Ibuprofen [Motrin -] 600 mg PO QID #28 tablet 05/15/18 Ibuprofen [Motrin -] 600 mg PO QID #28 tablet 05/15/18 Nitrofurantoin Macrocrystal [Nitrofurantoin] 100 mg PO BID #14 capsule 09/18/18 Nitrofurantoin Monohyd/M-Cryst [Macrobid -] 100 mg PO BID #14 capsule 09/18/18 Nitrofurantoin Monohyd/M-Cryst [Macrobid -] 100 mg PO BID #14 capsule 09/18/18 Butalb/Acetaminophen/Caffeine [Fioricet 50-300-40 mg Capsule] 1 each PO Q6H PRN #20 capsule 12/06/18 Pnv No.121/Iron/Folic Acid [ Multivitamin Tablet] 1 each PO DAILY #30 tablet 12/01/19 Anemia: Yes Asthma: No Cancer: No Cardiac Disorders: No CVA: No COPD: No CHF: No Dementia: No Diabetes: No GI Disorders: No Disorders: No HTN: No Hypercholesterolemia: No Liver Disease: No Seizures: No Thyroid Disease: No Other medical history: eptopic - Surgical History Abdominal Surgery: Yes Appendectomy: No Cardiac Surgery: No Cholecystectomy: No Lung Surgery: No Neurologic Surgery: No Orthopedic Surgery: No - Reproductive History (#): 6 Para: 2 Cervical CA: No Dysfunctional Uterine Bleeding: No Ectopic : Yes (today) Endometrial CA: No Polycystic Ovaries: No Therapeutic (s) & number: Yes (2) Tubal Ligation: No Spontaneous : 3 - Psycho-Social/Smoking History Smoking History: Current every day smoker Have you smoked in the past 12 months: Yes Number of Cigarettes Smoked Daily: 10 If you are a former smoker, when did you quit?: 2 weeks Information on smoking cessation initiated: No 'Breaking Loose' booklet given: 08/11/17 - Substance Abuse Hx (Audit-C & DAST Scrn) How often the patient has a drink containing alcohol: Monthly or less Number of drinks the patient has on a typical day: 1 or 2 How often the patient has six or more drinks on one occasion: Never Score: In Men: 4 or > Positive; In Women: 3 or > Positive: 1 Screen Result (Pos requires Nsg. Audit-10AR): Negative In the last yr the pt used illegal drug/Rx for NonMed reason: No Score: Yes response is considered Positive: 0 Screen Result (Positive result requires Nsg. DAST-10): Negative Review of Systems - Review of Systems Able to Perform ROS?: Yes Constitutional: No: Chills, Diaphoresis, Fever HEENTM: Yes: Blurred Vision, Recent change in vision. No: Eye Pain, Double Vision Respiratory: No: Cough, Shortness of Breath, Wheezing Cardiac (ROS): No: Chest Pain, Palpitations, Syncope ABD/GI: Yes: Abdominal cramping (LLQ). No: Nausea, Vomiting : Yes: Discharge (white vaginal discharge). No: Burning, Dysuria Musculoskeletal: No: Muscle Pain, Muscle Weakness Integumentary: No: Bruising, Erythema, Flushing Neurological: Yes: Headache. No: Numbness, Dizziness Psychiatric: No: Anxiety, Depression, Mood Swings Endocrine: No: Intolerance to Cold, Intolerance to Heat Hematologic/Lymphatic: No: Anemia, Easy Bleeding, Easy Bruising *Physical Exam - Vital Signs Last Vital Signs Temp Pulse Resp BP Pulse Ox 98.9 F 67 17 114/75 100 12/01/19 10:20 12/01/19 10:20 12/01/19 10:20 12/01/19 10:12/01/19 10:20 - Physical Exam General Appearance: Yes: Nourished, Appropriately Dressed. No: Apparent Distress HEENT: positive: EOMI, KITA, Normal Voice, Other (bilateral vision is 20/20) Respiratory/Chest: positive: Lungs Clear, Normal Breath Sounds. negative: Chest Tender Cardiovascular: positive: Regular Rhythm, Regular Rate, S1, S2. negative: Edema Female Pelvic Exam: positive: normal external exam, cervical os closed, normal size ovaries, discharge, other (white thin non-odorous discharge). negative: CMT, adnexal tenderness (firm right adnexal w/o mass. 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 Her CBC, chemistry, and urine were normal. Her B-hCG was ~1481 and inconsistent with a 5 week estimate based on her LMP. She is given an obgyn referral and counseled on the importance of smoke/alcohol cessation during . She is also given a prescription for vitamins to continue for the next 30 days. Her ultrsound shows... 12/01/19 13:30 12/01/19 13:35 Discharge - Discharge Information Problems reviewed: Yes Clinical Impression/Diagnosis: Abdominal cramping affecting Condition: Stable Disposition: HOME - Admission No - Additional Discharge Information Prescriptions: Pnv No.121/Iron/Folic Acid [ Multivitamin Tablet] 1 each PO DAILY #30 t ablet - Follow up/Referral Referrals: Zuri Pritchard MD [Staff Physician] - Erwin Anderson MD [Staff Physician] - - Patient Discharge Instructions Additional Instructions: Please return to the ED if your condition worsens and/or you experience abdominal pain, heavy vaginal bleeding (~2pads/hour), lightheadedness, palpitations, or feeling faint. Return to the ED in 48 hours to check you B-hCG and another Ultrasound. In order to maximize the health of both you and your child, you should work on staying hydrated, eliminating smoking/alcohol, and taking your vitamins. - Post Discharge Activity
[2019-12-01 12:03] LABS: BASO % 1.1 % (0-2.0); EOS % 6.5 % (0-4.5); HEMATOCRIT 41.9 % (32.4-45.2); HEMOGLOBIN 13.9 GM/dL (10.7-15.3); LYMPH % 19.1 % (8-40); MCH 31.1 pg (25.7-33.7); MCHC 33.1 g/dl (32.0-36.0); MEAN PLT VOLUME 9.1 fl (7.5-11.1); MONO % 7.5 % (3.8-10.2); NEUT % 65.8 % (42.8-82.8); PLATELET COUNT 197 K/MM3 (134-434); RBC 4.46 M/mm3 (3.60-5.2); RDW 12.5 % (11.6-15.6); WHITE BLOOD COUNT 7.7 K/mm3 (4.0-10.0)
[2019-12-01 12:34] LABS: ALBUMIN 3.8 g/dl (3.4-5.0); BILIRUBIN,TOTAL 0.4 mg/dL (0.2-1); BLOOD UREA NITROGEN 11.9 mg/dL (7-18); CALCIUM 8.5 mg/dL (8.5-10.1); CREATININE 0.7 mg/dL (0.55-1.3); POTASSIUM 3.9 mmol/L (3.5-5.1); TOT PROT 6.8 g/dl (6.4-8.2)
[2019-12-01 12:36] LABS: PH,URINE 7.5 (5.0-8.0); URINE APPEARANCE CLOUDY; URINE BILIRUBIN NEGATIVE (NEGATIVE); URINE COLOR YELLOW; URINE GLUCOSE (UA) NEGATIVE (NEGATIVE); URINE KETONE NEGATIVE (NEGATIVE); URINE LEUK ESTERASE NEGATIVE (NEGATIVE); URINE NITRITE NEGATIVE (NEGATIVE); URINE PROTEIN NEGATIVE (NEGATIVE); URINE UROBILINOGEN 0.2 mg/dL (0.2-1.0)
[2019-12-01 14:58] VITALS: BP 103/70; PULSE 64
--- NOTE | 2019-12-01 16:40 | PDOC ---
Documentation entered by Carrie Diaz SCRIBE, acting as scribe for Joshua Brower MD. Joshua Brower MD: This documentation has been prepared by the Joe johnson Nirvannie, SCRIBE, under my direction and personally reviewed by me in its entirety. I confirm that the documentation accurately reflects all work, treatment, procedures, and medical decision making performed by me. Attending Attestation - Resident Resident Name: PaolaFortunato - ED Attending Attestation I have performed the following: I have examined & evaluated the patient, The case was reviewed & discussed with the resident, I agree w/resident's findings & plan, Exceptions are as noted - HPI HPI: 12/01/19 11:53 The patient is a 39 year old 6 weeks female A4 with a significant past medical history of ectopic x1 (s/p right salpingectomy) who presents to the ED with 2 days of 4/10 LLQ pressure-like abdominal cramping. Patient notes associated tenderness to the bilateral breasts, non-odorous white vaginal discharge, polyuria, bilateral blurred vision, and headaches. Allergies: NKDA - Physicial Exam PE: 12/01/19 16:40 Feel Vitals: Triage Vital signs reviewed runaround General Appearance: No acute distress, well nourished well developed, Head: Atraumatic, Cardiac: Regular rate and rhythym, no murmurs, no rubs, no gallops, Lungs: Clear to auscultation bilateral, good air movement bilaterally, Abdomen: Soft, non distended, normal bowel sounds, non tender to palpation Extremities: Full range of motion to all extremities, no cyanosis, clubbing, or edema Skin: Warm and dry, no rashes or lesions, no rash, no petechiae Neuro: AOX3; cranial Nerves 2-12 grossly intact, strength intact to all extremities, sensation intact to all extremities, gait normal Psych: Normal mood, normal affect - Medical Decision Making 12/01/19 16:41 39 years old Rh+ approximately 4 weeks by dates positive gestational sac but no yolk sac beta-hCG approximately 1500 differential diagnosis includes early ectopic versus early versus miscarriage 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 Discharge - Discharge Information Problems reviewed: Yes Clinical Impression/Diagnosis: Abdominal cramping affecting Condition: Stable Disposition: HOME - Admission No - Additional Discharge Information Prescriptions: Pnv No.121/Iron/Folic Acid [ Multivitamin Tablet] 1 each PO DAILY #30 tablet - Follow up/Referral Referrals: Erwin Anderson MD [Staff Physician] - Zuri Pritchard MD [Staff Physician] - - Patient Discharge Instructions Additional Instructions: Please return to the ED if your condition worsens and/or you experience abdominal pain, heavy vaginal bleeding (~2pads/hour), lightheadedness, palpit ations, or feeling faint. Return to the ED in 48 hours to check you B-hCG and another Ultrasound. In order to maximize the health of both you and your child, you should work on staying hydrated, eliminating smoking/alcohol, and taking your vitamins. - Post Discharge Activity
== END 2019-12-01 14:57 | disposition home or self-care (01) ==
LOC: JER 10:18
PROC: 3E033GC Introduction of Other Therapeutic Substance into Peripheral Vein, Percutaneous Approach (ICD-10-PCS; principal; 2019-12-01)
DX: O26.891 Other specified pregnancy related conditions, first trimester (principal); R10.32 Left lower quadrant pain; Z3A.01 Less than 8 weeks gestation of pregnancy
CPT/HCPCS: 36415; 76817-TC; 80053; 81003; 84702; 85025; 86850; 86900; 86901; 87491; 87591; 87661; 99284-25; J0131

== ENCOUNTER 2019-12-04 15:46 | Emergency (ER) | payer OTHER ==
--- NOTE | 2019-12-04 15:54 | PDOC ---
Rapid Medical Evaluation Medical Evaluation: Allergies Allergy/AdvReac Type Severity Reaction Status Date / Time No Known Allergies Allergy Verified 12/06/18 14:44 12/04/19 15:51 39 yo F h/o ectopic 2018 returns for repear bhcg and repeat US. seen here 3 days ago for L sided pelvic pain, + . continues having L sided abd cramping. denies vaginal bleeding, n/v/f/d/c, cp, sob, urinary complaints. VSS well appearing ambulatory A/P: L sided pelvic pain labs repeat bhcg
[2019-12-04 15:56] VITALS: BP 102/56; PULSE 77; TEMP 98.5; BMI 24.0
--- NOTE | 2019-12-04 16:59 | PDOC ---
History of Present Illness - General Chief Complaint: Revisit, Lab Variance Stated Complaint: EVALUATION Time Seen by Provider: 12/04/19 15:56 History Source: Patient - History of Present Illness Timing/Duration: reports: changing over time Quality: reports: mild Past History - Medical History Allergies/Adverse Reactions: Allergies Allergy/AdvReac Type Severity Reaction Status Date / Time No Known Allergies Allergy Verified 12/04/19 15:56 Home Medications: Ambulatory Orders Ibuprofen [Motrin -] 600 mg PO QID #28 tablet 05/15/18 Ibuprofen [Motrin -] 600 mg PO QID #28 tablet 05/15/18 Nitrofurantoin Macrocrystal [Nitrofurantoin] 100 mg PO BID #14 capsule 09/18/18 Nitrofurantoin Monohyd/M-Cryst [Macrobid -] 100 mg PO BID #14 capsule 09/18/18 Nitrofurantoin Monohyd/M-Cryst [Macrobid -] 100 mg PO BID #14 capsule 09/18/18 Butalb/Acetaminophen/Caffeine [Fioricet 50-300-40 mg Capsule] 1 each PO Q6H PRN #20 capsule 12/06/18 Pnv No.121/Iron/Folic Acid [ Multivitamin Tablet] 1 each PO DAILY #30 tablet 12/01/19 Anemia: Yes Asthma: No Cancer: No Cardiac Disorders: No CVA: No COPD: No CHF: No Dementia: No Diabetes: No GI Disorders: No Disorders: No HTN: No Hypercholesterolemia: No Liver Disease: No Seizures: No Thyroid Disease: No - Surgical History Abdominal Surgery: Yes Appendectomy: No Cardiac Surgery: No Cholecystectomy: No Lung Surgery: No Neurologic Surgery: No Orthopedic Surgery: No - Reproductive History (#): 6 Para: 2 Cervical CA: No Dysfunctional Uterine Bleeding: No Ectopic : Yes (today) Endometrial CA: No Polycystic Ovaries: No Therapeutic (s) & number: Yes (2) Tubal Ligation: No Spontaneous : 3 - Psycho-Social/Smoking History Smoking History: Never smoked Have you smoked in the past 12 months: Yes Number of Cigarettes Smoked Daily: 10 If you are a former smoker, when did you quit?: 2 weeks 'Breaking Loose' booklet given: 08/11/17 Review of Systems - Review of Systems Constitutional: No: Fever ABD/GI: No: Nausea, Vomiting, Abdominal cramping : No: Dysuria *Physical Exam - Vital Signs Last Vital Signs Temp Pulse Resp BP Pulse Ox 98.5 F 77 18 102/56 L 98 12/04/19 15:49 12/04/19 15:49 12/04/19 15:49 12/04/19 15:49 12/04/19 15:49 - Physical Exam General Appearance: Yes: Appropriately Dressed. No: Apparent Distress HEENT: positive: Normal Voice Neck: positive: Supple Respiratory/Chest: negative: Respiratory Distress Gastrointestinal/Abdominal: positive: Soft. negative: Tender Integumentary: positive: Dry, Warm Neurologic: positive: Fully Oriented, Alert, Normal Mood/Affect Medical Decision Making - Medical Decision Making 12/04/19 16:57 39 yo F, (1 R ectopic s/p salpingectomy, 1 spon AB and 2 elec ABs), seen in ED 3 days ago for L pelvic pain w/ beta > 1400K w/ ? ges sac in utero. Here for re-eval. No sig pain now and denies vag bleed, dysuria, n/v/f/c see exam First trimester pain Since improved No vag bleed Beta increased to >5000 today, up from >1400 w/ rpt US today demonstrating increased size intrauterine ? ges sac, again noted is no pole seen and no adnexal ab/nl Dc to f/u with [employer] [employer] Reasons to return d/w pt 12/04/19 18:39 Discharge - Discharge Information Problems reviewed: Yes Clinical Impression/Diagnosis: Pelvic pain affecting Qualifiers: Trimester: first trimester Qualified Code(s): O26.891 - Other specified related conditions, first trimester; R10.2 - Pelvic and perineal pain Condition: Good Disposition: HOME - Follow up/Referral Referrals: Jay Gonzalez [Primary Care Provider] - - Patient Discharge Instructions Additional Instructions: Your US showed a most likely early Your beta today was >5000, up from >1400 on visit 11/30 Please follow up with [facility] [employer] at this time Return to ED for worsening of symptoms - Post Discharge Activity
== END 2019-12-04 18:37 | disposition home or self-care (01) ==
LOC: JERFT 15:46
DX: O26.891 Other specified pregnancy related conditions, first trimester (principal); R10.2 Pelvic and perineal pain
CPT/HCPCS: 36415; 76817-TC; 84702; 99284-25

== ENCOUNTER 2019-12-31 19:34 | Emergency (ER) | payer OTHER ==
[2019-12-31 19:59] VITALS: BP 104/67; PULSE 71; TEMP 98.4; BMI 25.0
--- NOTE | 2019-12-31 20:18 | PDOC ---
*Physical Exam - Vital Signs Last Vital Signs Temp Pulse Resp BP Pulse Ox 98.4 F 71 20 104/67 99 12/31/19 19:57 12/31/19 19:57 12/31/19 19:57 12/31/19 19:57 12/31/19 19:57 ED Treatment Course - LABORATORY CBC & Chemistry Diagram: 12/31/19 21:00 12/31/19 21:30 Medical Decision Making - Medical Decision Making 12/31/19 20:18 Patient seen by the advanced practice provider under my supervision. Ancillary testing reviewed as necessary. I agree with plan as outlined by the advanced practice provider. Discharge - Discharge Information Problems reviewed: Yes Clinical Impression/Diagnosis: Vaginal discharge during Condition: Stable Disposition: HOME - Follow up/Referral - Patient Discharge Instructions Patient Printed Discharge Instructions: DI for -- Discomforts and Remedies Additional Instructions: YOU UST FOLLOW UP WITH YOUR OBGYN - Post Discharge Activity
[2019-12-31] MEDS ORDERED: ONDANSETRON 4 MG/2 ML VIAL IVPUSH ONE (20:25)
[2019-12-31] MEDS ORDERED: MAG HYDROX/AL HYDROX/SIMETH -MYLANTA- ORAL SUSPENSION PO ONE (20:26)
--- NOTE | 2019-12-31 20:36 | PDOC ---
History of Present Illness - General Chief Complaint: Pain Stated Complaint: 9 Weeks /Abdominal Pain Time Seen by Provider: 12/31/19 20:13 History Source: Patient Exam Limitations: No Limitations - History of Present Illness Initial Comments: 12/31/19 20:32 39 year old female G7(2 children 2 miscarriages 3 abortions) 9 weeks gestation complaining of abdominal pain describes as cramping with associated vaginal discharge without bleeding. Pt states she also has nausea without vomiting. Pt states that her abdominal pain is consistent with her pervious miscarriages. Pt is concerned that she may be starting to have a miscarriage. Pt otherwise denies: fevers, chills, syncope, lightheadedness, dizziness, headaches, neck pain, chest pain, shortness of breath, palpitations, back pain, vomiting, diarrhea, constipation. Past History - Medical History Allergies/Adverse Reactions: Allergies Allergy/AdvReac Type Severity Reaction Status Date / Time No Known Allergies Allergy Verified 12/04/19 15:56 Home Medications: Ambulatory Orders Ibuprofen [Motrin -] 600 mg PO QID #28 tablet 05/15/18 Ibuprofen [Motrin -] 600 mg PO QID #28 tablet 05/15/18 Nitrofurantoin Macrocrystal [Nitrofurantoin] 100 mg PO BID #14 capsule 09/18/18 Nitrofurantoin Monohyd/M-Cryst [Macrobid -] 100 mg PO BID #14 capsule 09/18/18 Nitrofurantoin Monohyd/M-Cryst [Macrobid -] 100 mg PO BID #14 capsule 09/18/18 Butalb/Acetaminophen/Caffeine [Fioricet 50-300-40 mg Capsule] 1 each PO Q6H PRN #20 capsule 12/06/18 Pnv No.121/Iron/Folic Acid [ Multivitamin Tablet] 1 each PO DAILY #30 tablet 12/01/19 Anemia: Yes Asthma: No Cancer: No Cardiac Disorders: No CVA: No COPD: No CHF: No Dementia: No Diabetes: No GI Disorders: No Disorders: No HTN: No Hypercholesterolemia: No Liver Disease: No Seizures: No Thyroid Disease: No - Surgical History Abdominal Surgery: Yes Appendectomy: No Cardiac Surgery: No Cholecystectomy: No Lung Surgery: No Neurologic Surgery: No Orthopedic Surgery: No - Reproductive History Is Patient Now?: Yes (#): 6 Para: 2 Cervical CA: No Dysfunctional Uterine Bleeding: No Ectopic : Yes (today) Endometrial CA: No Polycystic Ovaries: No Therapeutic (s) & number: Yes (2) Tubal Ligation: No Spontaneous : 3 - Psycho-Social/Smoking History Smoking History: Never smoked Have you smoked in the past 12 months: Yes Number of Cigarettes Smoked Daily: 10 If you are a former smoker, when did you quit?: 2 weeks 'Breaking Loose' booklet given: 08/11/17 - Substance Abuse Hx (Audit-C & DAST Scrn) How often the patient has a drink containing alcohol: Never Score: In Men: 4 or > Positive; In Women: 3 or > Positive: 0 Screen Result (Pos requires Nsg. Audit-10AR): Negative *Physical Exam - Vital Signs Last Vital Signs Temp Pulse Resp BP Pulse Ox 98.4 F 71 20 104/67 99 12/31/19 19:57 12/31/19 19:57 12/31/19 19:57 12/31/19 19:57 12/31/19 19:57 - Physical Exam 12/31/19 20:35 Gen: AAOx 3, no acute distress, comfortable, no signs of respiratory distress HENT: atraumatic, normocephalic with no laceration or contusion. Nasal mucosa without erythema. Oropharynx without erythema or exudates. Mucous membranes moist. EYES: PERRL, EOM intact, conjunctiva pink NECK: supple; trachea midline; no JVD, no lymphadenopathy, or thyromegaly CV: RRR no murmurs, gallops, or rubs. CHEST: CTA b/l no wheezing, rales or rhonchi ABD: +BS/ND. no TTP; soft, no rebound, no guarding. Fundus below umbilicus PELVIC: No external lesions, vaginal vault: + white discharge, no blood, - midline tenderness elicited with manual exam, no CMT or adnexal tenderness; os closed EXTREMITY: no cyanosis or erythema. 2+ dorsalis pedis, posterior tibial, and radial pulse. No pedal edema; no calf swelling or tenderness SKIN: no rash, warm and dry, no diaphoresis HEME: no purpura or ecchymosis NEURO: normal speech, CN II-XII intact, sensation intact, normal gait, no cerebellar deficits MS: 5/5 strength in all extremities, FROM intact in all extremities. 12/31/19 20:43 ED Treatment Course - LABORATORY CBC & Chemistry Diagram: 12/31/19 21:00 12/31/19 21:30 - RADIOLOGY Radiology Studies Ordered: Category Date Time Status TRANSVAGINAL US PREG [US] Stat Ultrasound 12/31/19 20:25 Ordered Medical Decision Making - Medical Decision Making 12/31/19 20:35 39 year old female 9 weeks with abdominal cramping VSS Exam with discharge Will obtain labs GC UA UC Transvaginal US Will treat with Azithro and Ceftraxone as precaution Will reassess based on results TVUS: single live intrauterine gestation with heart rate 176 bpm and estimated gestational age by ultrasound 8 weeks and 5 days There is also a nonspecific round focused mixed echogenic mass at the posterior uterine parenchyma suggestive of myoma Labs WNL Beta [id number] Rh: + UA negative for UTI Pt reassured and feels better with medicine and is to follow up with [employer] TECHNIC[facility] Pt appears well and is safe and stable for discharge with strict return pre cautions including signs and symptoms requring immediate return to the ED Supportive care instructions explained and given to pt. Reasons to return emergently to ER explained and given. Importance of follow up with PMD and other specialists as indicated stressed to pt. Pt verbalized understanding of instructions. Pt to follow up with PMD in 2 days. Discharge - Discharge Information Problems reviewed: Yes Clinical Impression/Diagnosis: Qualifiers: Weeks of gestation: 9 weeks Qualified Code(s): Z3A.09 - 9 weeks gestation of Condition: Stable Disposition: HOME - Follow up/Referral - Patient Discharge Instructions Patient Printed Discharge Instructions: DI for -- Discomforts and Remedies Additional Instructions: YOU UST FOLLOW UP WITH YOUR OBGYN - Post Discharge Activity
[2019-12-31] MEDS ORDERED: MAG HYDROX/AL HYDROX/SIMETH 30 ML UNIT-DOSE CUP ONE (21:46)
[2019-12-31 21:57] LABS: BASO % 0.5 % (0-2.0); HEMATOCRIT 33.7 % (32.4-45.2); HEMOGLOBIN 11.5 GM/dL (10.7-15.3); LYMPH % 16.3 % (8-40); MCH 31.5 pg (25.7-33.7); MEAN CELL VOLUME 92.7 fl (80-96); MEAN PLT VOLUME 8.8 fl (7.5-11.1); MONO % 8.9 % (3.8-10.2); NEUT % 70.3 % (42.8-82.8); PLATELET COUNT 177 K/MM3 (134-434); RBC 3.64 M/mm3 (3.60-5.2); RDW 11.8 % (11.6-15.6); WHITE BLOOD COUNT 9.1 K/mm3 (4.0-10.0)
[2019-12-31 22:06] LABS: EPI CELLS >36 /uL (0-25.1); HYALINE CASTS 2 /uL (0-3.1); URINE APPEARANCE Error; URINE BILIRUBIN NEGATIVE (NEGATIVE); URINE COLOR YELLOW; URINE GLUCOSE (UA) NEGATIVE (NEGATIVE); URINE KETONE TRACE (NEGATIVE); URINE LEUK ESTERASE TRACE (NEGATIVE); URINE NITRITE NEGATIVE (NEGATIVE); URINE PROTEIN NEGATIVE (NEGATIVE); URINE RBC 26 /uL (0-23.9); URINE WBC 11 /uL (0-25.8)
[2019-12-31 22:32] LABS: ALBUMIN 3.1 g/dl (3.4-5.0); BILIRUBIN,TOTAL 0.2 mg/dL (0.2-1); BLOOD UREA NITROGEN 16.9 mg/dL (7-18); CALCIUM 8.3 mg/dL (8.5-10.1); CREATININE 0.8 mg/dL (0.55-1.3); POTASSIUM 3.8 mmol/L (3.5-5.1)
[2019-12-31] MEDS ORDERED: AZITHROMYCIN 500 MG TABLET PO ONE (23:05)
[2019-12-31] MEDS ORDERED: AZITHROMYCIN 250 MG TABLET ONE (23:24)
[2019-12-31] MEDS ORDERED: LIDOCAINE HCL 1%, 10 MG/ML (20ML VIAL) ONE (23:24)
[2019-12-31] MEDS ORDERED: cefTRIAXone SODIUM 1 GM VIAL ONE (23:25)
[2020-01-01 03:08] LABS: URINE BACTERIA 615 /uL (0-1359)
== END 2019-12-31 23:33 | disposition home or self-care (01) ==
LOC: JER 19:34
PROC: 3E033GC Introduction of Other Therapeutic Substance into Peripheral Vein, Percutaneous Approach (ICD-10-PCS; principal; 2019-12-31)
PROC: 3E02329 Introduction of Other Anti-infective into Muscle, Percutaneous Approach (ICD-10-PCS; 2019-12-31)
DX: N89.8 Other specified noninflammatory disorders of vagina (principal); Z3A.09 9 weeks gestation of pregnancy
CPT/HCPCS: 36415; 76801-TC; 80053; 81003; 83690; 84702; 85025; 85730; 86850; 86900; 86901; 87086; 87491; 87591; 99284-25

== ENCOUNTER 2020-01-17 07:32 | Emergency (ER) | payer OTHER ==
[2020-01-17 07:41] VITALS: BMI 24.8
--- NOTE | 2020-01-17 08:12 | PDOC ---
History of Present Illness - General Chief Complaint: Pain Stated Complaint: ABD PAIN/ 11 WEEKS Time Seen by Provider: 01/17/20 07:59 History Source: Patient - History of Present Illness Timing/Duration: reports: intermittent Quality: reports: cramping Past History - Medical History Allergies/Adverse Reactions: Allergies Allergy/AdvReac Type Severity Reaction Status Date / Time No Known Allergies Allergy Verified 12/04/19 15:56 Home Medications: Ambulatory Orders Ibuprofen [Motrin -] 600 mg PO QID #28 tablet 05/15/18 Ibuprofen [Motrin -] 600 mg PO QID #28 tablet 05/15/18 Nitrofurantoin Macrocrystal [Nitrofurantoin] 100 mg PO BID #14 capsule 09/18/18 Nitrofurantoin Monohyd/M-Cryst [Macrobid -] 100 mg PO BID #14 capsule 09/18/18 Nitrofurantoin Monohyd/M-Cryst [Macrobid -] 100 mg PO BID #14 capsule 09/18/18 Butalb/Acetaminophen/Caffeine [Fioricet 50-300-40 mg Capsule] 1 each PO Q6H PRN #20 capsule 12/06/18 Pnv No.121/Iron/Folic Acid [ Multivitamin Tablet] 1 each PO DAILY #30 tablet 12/01/19 Nitrofurantoin Monohyd/M-Cryst [Macrobid -] 100 mg PO BID #14 capsule 01/17/20 Anemia: Yes Asthma: No Cancer: No Cardiac Disorders: No CVA: No COPD: No CHF: No Dementia: No Diabetes: No GI Disorders: No Disorders: No HTN: No Hypercholesterolemia: No Liver Disease: No Seizures: No Thyroid Disease: No - Surgical History Abdominal Surgery: Yes Appendectomy: No Cardiac Surgery: No Cholecystectomy: No Lung Surgery: No Neurologic Surgery: No Orthopedic Surgery: No - Reproductive History Is Patient Now?: No (#): 6 Para: 2 Cervical CA: No Dysfunctional Uterine Bleeding: No Ectopic : Yes (today) Endometrial CA: No Polycystic Ovaries: No Therapeutic (s) & number: Yes (2) Tubal Ligation: No Spontaneous : 3 - Psycho-Social/Smoking History Smoking History: Never smoked Have you smoked in the past 12 months: Yes Number of Cigarettes Smoked Daily: 10 If you are a former smoker, when did you quit?: 2 weeks Information on smoking cessation initiated: No 'Breaking Loose' booklet given: 08/11/17 - Substance Abuse Hx (Audit-C & DAST Scrn) How often the patient has a drink containing alcohol: Never Score: In Men: 4 or > Positive; In Women: 3 or > Positive: 0 Screen Result (Pos requires Nsg. Audit-10AR): Negative In the last yr the pt used illegal drug/Rx for NonMed reason: No Score: Yes response is considered Positive: 0 Screen Result (Positive result requires Nsg. DAST-10): Negative Review of Systems - Review of Systems ABD/GI: Yes: Abdominal cramping. No: Nausea, Vomiting : No: Dysuria, Flank Pain *Physical Exam - Vital Signs Last Vital Signs Temp Pulse Resp BP Pulse Ox 77 15 91/59 L 97 01/17/20 07:35 01/17/20 07:35 01/17/20 07:35 01/17/20 07:35 - Physical Exam General Appearance: Yes: Appropriately Dressed. No: Apparent Distress HEENT: positive: Normal Voice Neck: positive: Supple Respiratory/Chest: negative: Respiratory Distress Gastrointestinal/Abdominal: positive: Tender, Soft, Other (no ttp over mcburneys). negative: Distended, Guarding, Rebound Musculoskeletal: negative: CVA Tenderness Integumentary: positive: Dry, Warm Neurologic: positive: Fully Oriented, Alert, Normal Mood/Affect Medical Decision Making - Medical Decision Making 01/17/20 09:11 39 yo F, (s/p 2 spon ab and 3 elec abs), ~10 weeks , here w/ ongoing pelvic cramping that has been present on and off throughout her . No vag bleed, dysuria, n/v/f/c. Seen in ED > 2 weeks ago for for same w/ 8 w IUP w/ FHR on UA w/ neg ucx. Has OB appt next week see exam Intermittent abd cramping in early Seen for same w/ 8 week IUP on US > 2 weeks ago w/ neg ucx No vag bleed or dysuria at this time Well karin in NAD, BP 90s/50s at triage, 110/70 on rpt, +minimal ttp to suprapubic diffusely Declines tylenol UA 1/ >1900 marily, ucx sent, will tx Dc to f/u with OB as already scheduled Discharge - Discharge Information Problems reviewed: Yes Clinical Impression/Diagnosis: Abdominal cramping affecting Condition: Good Disposition: HOME - Additional Discharge Information Prescriptions: Nitrofurantoin Monohyd/M-Cryst [Macrobid -] 100 mg PO BID #14 capsule - Follow up/Referral - Patient Discharge Instructions Additional Instructions: Abdominal pain is not unusual in and you can take Tylenol as needed Your urine today showed a lot of bacteria. take macrobid as directed There was no need for a repeat ultrasound today as your ultrasound 2 weeks ago show an 8-week intrauterine with heart rate. Please follow-up with your RAILROAD INSPECTOR as already scheduled next week - Post Discharge Activity Work/Back to School Note: Back to Work
--- NOTE | 2020-01-17 08:41 | PDOC ---
*Physical Exam - Vital Signs Last Vital Signs Temp Pulse Resp BP Pulse Ox 77 15 91/59 L 97 01/17/20 07:35 01/17/20 07:35 01/17/20 07:35 01/17/20 07:35 - Physical Exam 01/17/20 08:40 The patient was examined by [RODNEY Alex] under my direct supervision. I personally evaluated the patient. I concur with the above findings and the plan of care. Discharge - Discharge Information Problems reviewed: Yes Clinical Impression/Diagnosis: Abdominal cramping affecting Condition: Good Disposition: HOME - Additional Discharge Information Prescriptions: Nitrofurantoin Monohyd/M-Cryst [Macrobid -] 100 mg PO BID #14 capsule - Follow up/Referral - Patient Discharge Instructions Additional Instructions: Abdominal pain is not unusual in and you can take Tylenol as needed Your urine today showed a lot of bacteria. take macrobid as directed There was no need for a repeat ultrasound today as your ultrasound 2 weeks ago show an 8-week intrauterine with heart rate. Please follow-up with your CALL WORKER as already scheduled next week - Post Discharge Activity Work/Back to School Note: Back to Work
[2020-01-17 08:58] LABS: EPI CELLS >36 /uL (0-25.1); HYALINE CASTS 7 /uL (0-3.1); URINE APPEARANCE CLOUDY; URINE BACTERIA 1929 /uL (0-1359); URINE BILIRUBIN NEGATIVE (NEGATIVE); URINE COLOR YELLOW; URINE GLUCOSE (UA) NEGATIVE (NEGATIVE); URINE KETONE NEGATIVE (NEGATIVE); URINE LEUK ESTERASE TRACE (NEGATIVE); URINE NITRITE NEGATIVE (NEGATIVE); URINE PROTEIN NEGATIVE (NEGATIVE); URINE RBC 30 /uL (0-23.9); URINE UROBILINOGEN 0.2 mg/dL (0.2-1.0); URINE WBC 40 /uL (0-25.8)
[2020-01-17 10:22] VITALS: BP 110/70; PULSE 70; TEMP 98.1
== END 2020-01-17 09:15 | disposition home or self-care (01) ==
LOC: JER 07:32
DX: O26.91 Pregnancy related conditions, unspecified, first trimester (principal); Z3A.11 11 weeks gestation of pregnancy
CPT/HCPCS: 81003; 87086; 99283-25

== ENCOUNTER 2020-02-12 10:05 | Emergency (ER) | payer OTHER ==
[2020-02-12 10:18] VITALS: TEMP 98.1; BMI 25.0
[2020-02-12] MEDS ORDERED: METOCLOPRAMIDE HCL INJECTION 10 MG/2 ML VIAL IVPUSH ONE (10:53)
[2020-02-12] MEDS ORDERED: SODIUM CHLORIDE 0.9% 500 ML INFUS.BAG IV ONE (10:53)
[2020-02-12] MEDS ORDERED: ACETAMINOPHEN 1000 MG/100 ML VIAL (NON FORMULARY) IVPB ONE (10:53)
--- OUTSIDE RECORDS SUMMARY | 2020-02-12 11:09 | XMS ---
:1980 Author Organization [facility] Support Name Relationship Address Phone CONOR ON KAMERON Unavailable [address] [place] [address] [place] [address] MARYCRUZ DELGADO Spouse [address] [place] [address] URENAGEORGE JULIEN Unavailable [address] [place] [address] Re-disclosure Warning The records that you are about to access may contain information from federally- assisted alcohol or drug abuse programs. If such information is present, then the following federally mandated warning applies: This information has been disclosed to you from records protected by federal confidentiality rules (42 CFR part 2). The federal rules prohibit you from making any further disclosure of this information unless further disclosure is expressly permitted by the written consent of the person to whom it pertains or as otherwise permitted by 42 CFR part 2. A general authorization for the release of medical or other information is NOT sufficient for this purpose. The Federal rules restrict any use of the information to criminally investigate or prosecute any alcohol or drug abuse patient.The records that you are about to access may contain highly sensitive health information, the redisclosure of which is protected by Article 27-F of the [facility] Public Health law. If you continue you may haveaccess to information: Regarding HIV / AIDS; Provided by facilities licensed or operated by the [facility] Office of Mental Health; or Provided by the [facility] Office for People With Developmental Disabilities. If such information is present, then the following [facility] mandated warning applies: This information has been disclosed to you from confidential records which are protected by state law. State law prohibits you from making any further disclosure of this information without the specific written consent of the person to whom it pertains, or as otherwise permitted by law. Any unauthorized further disclosure in violation of state law may result in a fine or assisted sentence or both. A general authorization for the release of medical or other information is NOT sufficient authorization for further disclosure. Allergies and Adverse Reactions Type Description Substance Reaction Status Data Source(s ) No Known Allergies No Known Allergies No Known eCW3 ([facility]) No Known Allergies No Known Allergies No Known eCW3 ([facility]) No Known Allergies No Known Allergies No Known eCW3 ([place] [facility]) No Known Allergies No Known Allergies No Known eCW3 ([place] [facility]) No Known Allergies No Known Allergies No Known eCW3 ([facility]) No Information No Information No Information eC W2 ([facility]) No Information No Information No Allergy eCW2 ( [facility] [employer]) No Known Allergies No Known Allergies No known eCW2 ([facility] - [facility]uation[facility] [employer]) No Known Allergies No Known Allergies No known eCW2 ([facility] - [facility]uation[facility] [employer]) Encounters Encounter Providers Location Date Indications Data Source(s ) Outpatient [facility] 12/15/2018 eCW3 [facility] 12:00[facility]00 AM [facility] - Care[facility] 12/15/2018 12:00:00 AM EDT Outpatient [facility] 12/13/2018 eCW3 ([facility] 12:00:00 AM [facility] EDT - Care) 12/13/2018 12:00:00 AM EDT Outpatient [facility] 09/07/2018 eCW3 ([facility] 12:00:00 AM [facility] EDT - Care) 09/07/2018 12:00:00 AM EDT [facility] 09/06/2018 e[facility] ( [facility] [place] [facility] [place] ED[facility]) Outpatient [facility] 09/05/2018 eCW3 ([facility] 12:00:00 AM [facility] EDT - Care) 09/05/2018 12:00:00 AM EDT [facility] 09/01/2018 eCW2 ( [facility] [place] 12:00:[facility] [place] EDT [facility]) [facility]patient [facility] 08/31/2018 eCW3 ([place] [facility] 12[facility]00:00 AM [facility] EDT - Care) 08/31/2018 12:00:00 AM EDT [facility] 06/15/2018 eCW2 ([facility] [place] [facility] 06/09/2018 eCW2 ([facility] [place] [facility] 12:00:[facility] 06/01/2018 eCW2 ([facility] [place] [facility] 12[facility]00:[facility] 06/01/2018 eCW2 ([facility] [place] [facility] 12[facility]00:[facility] 05/26/2018 eCW2 ([facility] [place] [facility] 12:00:00 [facility] 05/16/2018 eCW2 ([facility] [place] [facility] 12:00:[facility] 05/05/2018 eCW2 ([facility] [place] [facility] 12[facility]00:[facility] 05/05/2018 eCW2 ([facility] [place] [facility] 12:00:[facility] 05/03/2018 eCW2 ([facility] 12[facility]00:[facility] 04/18/2018 eCW2 ([facility] [place] [facility] 12[facility]00:[facility] 03/10/2018 eCW2 ([facility] [place] [facility] 12:00:[facility] 03/07/2018 eCW2 ([facility] [place] [facility] 12:00:[facility] 03/01/2018 eCW2 ([facility] [place] [facility] 12:00:[facility] 01/[facility]/2018 e[facility] ( [facility] 12[facility]00:[facility] [place] EDT [facility]) [facility] 01/21/2018 eCW2 ([facility] [place] [facility] 12:00:[facility] 01/20/2018 eCW2 ([facility] [place] [facility] 12:00:[facility] 01/20/2018 eCW2 ([facility] [place] [facility] 12:00:00 [facility] 01/18/2018 eCW2 ([facility] [place] [facility] 12:00:[facility] 01/18/2018 eCW2 ([facility] [place] [facility] 12:00:[facility] 01/12/2018 eCW2 ([facility] [place] [facility] 12:00:[facility] 01/08/2018 eCW2 ([facility] [place] [facility] 12:00:[facility] 01/05/2018 eCW2 ([facility] [place] [facility] 12:00:[facility] 01/04/2018 e[facility]2 ( [facility] 12[facility]00:[facility] [place] EDT [facility]) [facility] 11/10/2017 eCW2 ([facility] [place] [facility] 12:00:[facility] 10/15/2017 eCW2 ([facility] [place] [facility] 12:00:[facility] 10/15/2017 eCW2 ([facility] [place] [facility] 12:00:[facility] 09/20/2017 eCW2 ( [facility] 12:00:00 [facility] [place] EDT [facility]) [facility] 09/01/2017 eCW2 ([facility] [place] [facility] 12:00:[facility] 08/26/2017 eCW2 ([facility] [place] [facility] 12:00:[facility] 08/25/2017 eCW2 ([facility] [place] [facility] 12:00:[facility] 08/18/2017 eCW2 ( [facility] 12:00:00 [facility] [place] EDT [facility]) [facility] 06/11/2017 eCW2 ([facility] [place] [facility] 12:00:00 [facility] 05/27/2017 eCW2 ( [facility] 12:00:00 [facility] [place] EST [facility]) [facility] 05/24/2017 eCW2 ( [facility] 12:00:00 [facility] [place] EST [facility]) [facility] 03/31/2017 eCW2 ([facility] [place] [facility] 12:00:00 [facility] 02/25/2017 eCW2 ([facility] [place] [facility] 12:00:00 [facility]) [facility] 12/19/2016 eCW2 ([facility] [place] [facility] 12:00:00 [facility]) [facility] 12/19/2016 eCW2 ([facility] [place] [facility] 12:00:[facility]) [facility] 11/16/2016 eCW2 ([facility] [place] [facility] 12:00:00 [facility]) [facility] 10/09/2016 eCW2 ([facility] [place] [facility] 12:00:00 [facility]) [facility] 09/09/2016 eCW2 ([facility] [place] [facility] 12:00:00 [facility]) [facility] 08/31/2016 eCW2 ([facility] [place] [facility] 12:00:00 [facility] 06/24/2016 eCW2 ( [facility] 12:00:00 [facility] [place] EST [facility]) [facility] 06/24/2016 eCW2 ( [facility] 12:00:00 [facility] [place] EST [facility]) [facility] 03/11/2016 eCW2 ([facility] [place] [facility] 12:00:[facility] 02/26/2016 eCW2 ( [facility] 12:00:00 [facility] [place] EDT [facility]) [facility] 01/29/2016 eCW2 ([facility] [place] [facility] 12:00:00 [facility] 05/29/2015 eCW2 ( [facility] 12:00:00 [facility] [place] EST [facility]) Immunizations Vaccine Date Status Description Data Source(s) No Known Immunizations completed eCW2 ([facility]) No Known Immunizations completed eCW2 ([facility] [employer]) No Known Immunizations completed eCW2 ([facility] [employer]) No Known Immunizations completed eCW2 ([facility] [employer]) Medications Medication Brand Start Product Dose Route Administrative Pharmacy [facility] Indications Reaction Description Data Name Date Form Instructions Instructions Source(s) Amoxicillin Amoxic .0 suspend Amoxic illin eCW3 875 MG Oral illin 2019 {tabl ed 875 MG ([facility] Tablet 875 MG 12:00: et_wi [place] 00 AM th_fo Health EDT od} Care) Amoxicillin Amoxic .0 suspend Amoxic illin eCW3 875 MG Oral illin 2019 {tabl ed 875 MG ([facility] Tablet 875 MG 12:00: et_wi [place] 00 AM [facility] EDT od} Care) Omeprazole Omepra 07/04/ suspend Omepraz ole eCW3 40 MG zole 2020 ed 40 MG ([facility] Delayed 40 MG 12:00: [facility] Release 00 AM Health Oral EST Care) Capsule Chantix Chanti 07/04/ active Chantix eCW 3 Starting x 2020 Starting ([place] Month Babatunde Starti 12:00: Month Babatunde R iver 0.5 MG X 11 ng 00 AM 0.5 MG X 11 Health & 1 MG X 42 Month EST & 1 MG X 42 Care) Babatunde 0.5 MG X 11 & 1 MG X 42 Omeprazole Omepra 07/04/ suspend Omepraz ole eCW3 40 MG zole 2020 ed 40 MG ([facility] Delayed 40 MG 12:00: [facility] Release 00 AM Health Oral EST Care) Capsule Cimetidine Cimeti .0 active Cimetidi ne eCW3 200 MG Oral dine 2019 {tabl 200 MG ([facility] Tablet 200 MG 12:00: et_as [place] 00 AM _need Health EST ed} Care) Cimetidine Cimeti .0 suspend Cimetid ine eCW3 200 MG Oral dine 2020 {tabl ed 200 MG ([facility] Tablet 200 MG 12:00: et_as [place] 00 AM _need Health EST ed} Care) Cimetidine Cimeti .0 suspend Cimetid ine eCW3 200 MG Oral dine 2019 {tabl ed 200 MG ([facility] Tablet 200 MG 12:00: et_as [place] 00 AM _need Health EST ed} Care) Omeprazole Omepra 07/04/ active Omeprazo le eCW3 40 MG zole 2020 40 MG ([facility] Delayed 40 MG 12:00: [facility] Release 00 AM Health Oral EST Care) Capsule Sumatriptan Sumatr .0 active Sumatri ptan eCW3 50 MG Oral iptan 2018 {tabl Succinate 50 ([facility] Tablet Succin 12:00: et_as MG [place] Sumatriptan ate 50 00 AM _need Heal th Succinate MG EDT ed} Care) 50 MG Sumatriptan Sumatr 0 active Sumatri ptan eCW3 50 MG Oral iptan 2018 {tabl Succinate 50 ([facility] Tablet Succin 12:00: et_as MG [facility] Sumatriptan ate 50 00 AM _need Heal th Succinate MG EDT ed} Care) 50 MG Sumatriptan Sumatr 0 suspend Sumatr iptan eCW3 50 MG Oral iptan 2018 {tabl ed Succinate 50 ([facility] Tablet Succin 12:00: et_as MG [place] Sumatriptan ate 50 00 AM _need Heal th Succinate MG EDT ed} Care) 50 MG Sumatriptan Sumatr .0 active Sumatri ptan eCW3 50 MG Oral iptan 2018 {tabl Succinate 50 ([facility] Tablet Succin 12:00: et_as MG [place] Sumatriptan ate 50 00 AM _need Heal th Succinate MG EDT ed} Care) 50 MG Sumatriptan Sumatr .0 suspend Sumatr iptan eCW3 50 MG Oral iptan 2018 {tabl ed Succinate 50 ([facility] Tablet Succin 12:00: et_as MG [place] Sumatriptan ate 50 00 AM _need Heal th Succinate MG EDT ed} Care) 50 MG Omeprazole Omepra .0 suspend Omepraz ole eCW3 20 MG zole 2018 {caps ed 20 MG ([facility] Delayed 20 MG 12:00: ule} [facility] Release 00 AM Health Oral EDT Care) Capsule Omeprazole Omepra 04/22/ 1.0 suspend Omepraz ole eCW3 20 MG zole 2019 {caps ed 20 MG ([facility] Delayed 20 MG 12:00: ule} [facility] Release 00 AM Health Oral EDT Care) Capsule Metronidazo MetroG 1 eC W2 le 0.0075 el-Vag 2018 application ( Planned MG/MG inal 12:00: at bedtime Parent florian Vaginal Gel 0.75 % 00 AM - [facility] [MetroGel] EDT [facility] [employer] at ginal 0.75 ed) % No Known complet eCW2 Medications ed ([facility]) Unknown complet eCW2 Medications ed ([facility] [place] [facility] [employer] ed) Unknown complet eCW2 Medications ed ([facility]) Insurance Providers Payer name Policy type Policy ID Covered Covered constitution party's Policy P jose / Coverage constitution party ID relationship to Gutierrez Inf ormation type gutierrez [facility] MEDICAID [id number] COMM PLAN SELF PAY SP INSURANCE [facility] MEDICAID [id number] COMM PLAN Problems, Conditions, and Diagnoses Code Display Name Description Problem Type Effective Dates Data Source(s) F17.200 Smoker Smoker Problem 07/04/2019 eCW3 ([facility] 12:00:00 AM [facility]) K21.0 GERD with GERD with Problem 07/04/2019 eCW3 ([facility] esophagitis esophagitis 12:00:00 AM [facility]) G43.909 Migraine without Migraine without Problem 12/13/2018 eC W3 ([facility] status status 12:00:00 AM EDT [facility] migrainosus, not migrainosus, not Ca re) intractable, intractable, unspecified unspecified migraine type migraine type G43.909 Migraine without Migraine without Problem 12/13/2018 eC W3 ([facility] status status 12:00:00 AM EDT [facility] migrainosus, not migrainosus, not Ca re) intractable, intractable, unspecified unspecified migraine type migraine type R13.10 Food sticks on Food sticks on Problem 09/05/2018 eCW3 ( [facility] swallowing swallowing 12:00:00 AM [facility]) R13.10 Food sticks on Food sticks on Problem 09/05/2018 eCW3 ( [facility] swallowing swallowing 12:00:00 AM EDT [facility]) F43.23 Adjustment Adjustment Problem 06/03/2018 eCW3 ([facility] disorder with disorder with 12:00:00 AM [facility] anxiety and mixed anxiety and Care) depressed mood depressed mood F43.23 Adjustment Adjustment Problem 06/03/2018 eCW2 ([facility] disorder with disorder with 12:00:00 AM [facility] mixed anxiety and mixed anxiety and Care) depressed mood depressed mood F32.9 Depression, Depression, Problem 10/15/2017 eCW3 ([facility] unspecified unspecified 12:00:00 AM EDT [facility] depression type depression type Care ) F32.9 Depression, Depression, Problem 10/15/2017 eCW3 ([facility] unspecified unspecified 12:00:00 AM EDT [facility] depression type depression type Care ) F32.9 Depression, Depression, Problem 10/15/2017 eCW2 ([facility] unspecified unspecified 12:00:00 AM EDT [facility] depression type depression type Care ) F41.8 Anxiety Anxiety Problem 08/31/2016 eCW3 ([facility] associated with associated with 12:00:00 AM EDT [facility] depression depression Care) F41.9 Anxiety disorder, Anxiety disorder, Problem 08/31/2016 eCW3 ([facility] unspecified unspecified 12:00:00 AM EDT [facility]) F41.8 Depression with Depression with Problem 08/31/2016 eCW3 ([facility] anxiety anxiety 12:00:00 AM EDT [facility]) F41.9 Anxiety disorder, Anxiety disorder, Problem 08/31/2016 eCW3 ([facility] unspecified unspecified 12:00:00 AM EDT [facility]) F41.8 Depression with Depression with Problem 08/31/2016 eCW3 ([facility] anxiety anxiety 12:00:00 AM EDT [facility]) F41.8 Anxiety Anxiety Problem 08/31/2016 eCW3 ([facility] associated with associated with 12:00:00 AM EDT [facility] depression depression Care) F41.9 Anxiety disorder, Anxiety disorder, Problem 08/31/2016 eCW2 ([facility] unspecified unspecified 12:00:00 AM EDT [facility]) F41.8 Anxiety Anxiety Problem 08/31/2016 eCW2 ([facility] associated with associated with 12:00:00 AM [facility] depression depression Care) F41.8 Depression with Depression with Problem 08/31/2016 eCW2 ([place] anxiety anxiety 12:00:00 AM [facility] lth Care) Z33.1 Problem eCW3 ([facility]) Z33.1 Problem eCW2 ([facility]) Z34.90 Encounter for Supervision of Problem eCW2 (P lanned supervision of normal , Par enthood - normal , unspecified [facility] unspecified, trimester and [employer] geovanna) unspecified trimester Surgeries/Procedures Procedure Description Date Indications Data Source(s) Wet Mount 09/01/2018 eCW2 ([facility] 12:00:00 [facility]) CHLAMYDIA, GABRIELA 09/01/2018 eCW2 ([facility] 12:00:00 [facility]) GONORRHEA, GABRIELA 09/01/2018 eCW2 ([facility] 12:00:00 [facility] [facility]) SPECIMEN HANDLING 09/01/2018 eCW2 ([facility] 12:00:00 AM [facility]) Test 01/27/2018 eCW2 ([facility] 12:00:00 [facility]) No Known procedures No Known procedures e CW2 ([facility]) No Known procedures No Known procedures e CW2 ([facility]) Results ID Date Data Source [id number] 02/06/2020 10:39:00 AM EDT [facility] Name Value Range Interpretation Code Description Data Char rce(s) Supporting Document(s ) HOLOGIC [facility] SARS-CoV-2 TMA PCR This lab was ordered by MELITA ALDRICH MD and reported by [facility]. ID Date Data Source [id number] 01/30/2020 08:07:00 AM EDT [facility] Name Value Range Interpretation Code Description Data Char rce(s) Supporting Document(s ) HOLOGIC [facility] SARS-CoV-2 TMA PCR This lab was ordered by MELITA ALDRICH MD and reported by [facility]. ID Date Data Source [id number] 01/23/2020 03:49:00 PM EDT [facility] Name Value Range Interpretation Code Description Data Char rce(s) Supporting Document(s ) HOLOGIC [facility] SARS-CoV-2 TMA PCR This lab was ordered by MELITA ALDRICH MD and reported by [facility]. ID Date Data Source [id number] 01/16/2020 08:58:00 AM EDT [facility] Name Value Range Interpretation Code Description Data Char rce(s) Supporting Document(s ) HOLOGIC [facility] SARS-CoV-2 TMA PCR This lab was ordered by MELITA ALDRICH MD and reported by [facility]. ID Date Data Source [id number] 01/09/2020 01:12:00 PM EDT [facility] Name Value Range Interpretation Code Description Data Char rce(s) Supporting Document(s ) HOLOGIC [facility] SARS-CoV-2 TMA PCR This lab was ordered by MELITA ALDRICH MD and reported by [facility]. ID Date Data Source [id number] 12/26/2019 08:33:00 AM EDT [facility] Name Value Range Interpretation Code Description Data Char rce(s) Supporting Document(s ) HOLOGIC [facility] SARS-CoV-2 TMA PCR This lab was ordered by MELITA ALDRICH MD and reported by [facility]. ID Date Data Source [id number] 12/19/2019 03:41:00 PM EDT [facility] Name Value Range Interpretation Code Description Data Char rce(s) Supporting Document(s ) HOLOGIC [facility] SARS-CoV-2 TMA PCR This lab was ordered by MELITA ALDRICH MD and reported by [facility]. ID Date Data Source [id number] 12/05/2019 10:18:00 AM EDT [facility] Name Value Range Interpretation Code Description Data Char rce(s) Supporting Document(s ) SARS-CoV-2 [facility] , RNA This lab was ordered by MELITA ALDRICH MD and reported by [facility]. ID Date Data Source [id number] 11/28/2019 04:03:00 PM EDT [facility] Name Value Range Interpretation Code Description Data Char rce(s) Supporting Document(s ) SARS-CoV-2 [facility] , RNA This lab was ordered by MELITA ALDRICH MD and reported by [facility]. ID Date Data Source [id number] 11/21/2019 06:10:00 PM EDT [facility] Name Value Range Interpretation Code Description Data Char rce(s) Supporting Document(s ) SARS-CoV-2 [facility] , RNA This lab was ordered by MELITA ALDRICH MD and reported by [facility]. ID Date Data Source [id number] 11/14/2019 05:00:00 PM EDT [facility] Name Value Range Interpretation Code Description Data Char rce(s) Supporting Document(s ) SARS-CoV-2 [facility] , RNA This lab was ordered by MELITA ALDRICH MD and reported by [facility]. ID Date Data Source [id number] 11/07/2019 09:14:00 AM EDT [facility] Name Value Range Interpretation Code Description Data Char rce(s) Supporting Document(s ) SARS-CoV-2 [facility] , RNA This lab was ordered by MELITA ALDRICH MD and reported by [facility]. ID Date Data Source [id number] 10/31/2019 12:00:00 AM EDT [facility] Name Value Range Interpretation Code Description Data Char rce(s) Supporting Document(s ) 2019-nCoV [facility] RNA XXX GABRIELA+probe- Imp This lab was ordered by [facility] and reported by [employer]. ID Date Data Source [id number] 10/24/2019 08:55:00 AM EDT [place] Name Value Range Interpretation Code Description Data Char rce(s) Supporting Document(s ) SARS-CoV-2 [facility] , RNA This lab was ordered by [employer] and reported by [facility]. ID Date Data Source [id number] 10/17/2019 04:43:00 PM EDT [place] Name Value Range Interpretation Code Description Data Char rce(s) Supporting Document(s ) SARS-CoV-2 [facility] , RNA This lab was ordered by [employer] and reported by [facility]. ID Date Data Source [id number] 10/17/2019 04:43:00 PM EDT [place] Name Value Range Interpretation Code Description Data Char rce(s) Supporting Document(s ) SARS-CoV-2 [facility] , RNA This lab was ordered by [employer] and reported by [facility]. ID Date Data Source [id number] 10/13/2019 04:28:00 PM EDT [place] Name Value Range Interpretation Code Description Data Char rce(s) Supporting Document(s ) SARS-CoV-2 [facility] , RNA This lab was ordered by [facility] [facility] and reported by [employer]. ID Date Data Source [id number] 10/12/2019 11:53:00 AM EDT [facility] Name Value Range Interpretation Code Description Data Char rce(s) Supporting Document(s ) SARS-CoV-2 [facility] , RNA This lab was ordered by [facility] [place] [facility] and reported by [employer]. Procedure Social History Code Duration Value Status Description Data Source(s ) Smoking 11/06/2019 Former Smoker completed Former Smoker eCW3 (Hu dson 12:00:00 AM [facility]) Smoking 11/06/2019 Former Smoker completed Former Smoker eCW3 ( dson 12:00:00 AM [facility]) Smoking 07/15/2019 Former Smoker completed Former Smoker eCW3 ( dson 12:00:00 AM [facility]) Smoking 12/15/2018 Former Smoker completed Former Smoker eCW3 (Hu dson 12:00:00 AM [facility]) Smoking 12/15/2018 Former Smoker completed Former Smoker eCW3 ( dson 12:00:00 AM [facility]) Former Smoker completed Former Smoker eCW3 ([facility]) Former Smoker completed Former Smoker eCW3 ([facility]) Former Smoker completed Former Smoker eCW3 ([facility]) Former Smoker completed Former Smoker eCW3 ([facility]) Former Smoker completed Former Smoker eCW3 ([facility]) Smoking Unknown if ever completed Unknown if ever eCW2 ([facility] smoked smoked [facility]) Smoking Unknown if ever completed Unknown if ever eCW2 ([facility] [employer] [facility]) Smoking Unknown if ever completed Unknown if ever eCW2 ([facility] [employer] [facility]) Smoking Unknown if ever completed Unknown if ever eCW2 ([facility] smoked [facility] [employer]) Vital Signs ID Date Data Source UNK Name Value Range Interpretation Code Description Data Source(s) Diastolic blood 55 mm[Hg] 55 mm[Hg] eCW3 ([facility]) Systolic blood 88 mm[Hg] 88 mm[Hg] eCW3 ([facility]) Body temperature 97.7 [degF] 97.7 [degF] eCW3 ( [facility]) Heart rate 20 /min 20 /min eCW3 ([facility]) Body mass index 22.94 kg/m2 22.94 kg/m2 eCW3 (H udson (BMI) [Ratio] [facility]) Body weight 113.6 113.6 [lb_av] eCW3 ([facility] on [lb_av] [facility]) Body height 59 [in_i] 59 [in_i] eCW3 ([facility]) Diastolic blood 56 mm[Hg] 56 mm[Hg] eCW3 ([facility]) Systolic blood 92 mm[Hg] 92 mm[Hg] eCW3 ([facility]) Body temperature 98.1 [degF] 98.1 [degF] eCW3 ( [facility]) Heart rate 20 /min 20 /min eCW3 ([facility]) Body mass index 23.02 kg/m2 23.02 kg/m2 eCW3 ([facility] (BMI) [Ratio] [facility]) Body weight 114 [lb_av] 114 [lb_av] eCW3 ([facility]) Body height 59 [in_i] 59 [in_i] eCW3 ([facility]) Diastolic blood 63 mm[Hg] 63 mm[Hg] eCW3 ([facility]) Systolic blood 95 mm[Hg] 95 mm[Hg] eCW3 ([facility]) Body temperature 99.6 [degF] 99.6 [degF] eCW3 ( [facility]) Heart rate 20 /min 20 /min eCW3 ([facility]) Body mass index 22.78 kg/m2 22.78 kg/m2 eCW3 ([facility] (BMI) [Ratio] [facility]) Body weight 112.8 112.8 [lb_av] eCW3 ([facility] on [lb_av] [facility]) Body height 59 [in_i] 59 [in_i] eCW3 ([facility]) Diastolic blood 65 mm[Hg] 65 mm[Hg] eCW3 ([facility]) Systolic blood 95 mm[Hg] 95 mm[Hg] eCW3 ([facility]) Body temperature 98.1 [degF] 98.1 [degF] eCW3 ( [facility]) Heart rate 18 /min 18 /min eCW3 ([facility]) Body mass index 22.01 kg/m2 22.01 kg/m2 eCW3 ([facility] udson (BMI) [Ratio] [facility]) Body weight 109 [lb_av] 109 [lb_av] eCW3 ([facility]) Body height 59 [in_i] 59 [in_i] eCW3 ([facility]) Diastolic blood 70 mm[Hg] 70 mm[Hg] eCW2 ([facility]) Systolic blood 99 mm[Hg] 99 mm[Hg] eCW2 (Plan lary pressure [facility]) Body mass index 22.42 kg/m2 22.42 kg/m2 eCW2 (P lanned (BMI) [Ratio] [facility]) Body weight 111 [lb_av] 111 [lb_av] eCW2 ([facility]) Body height 59 [in_us] 59 [in_us] eCW2 ([facility]) Diastolic blood 61 mm[Hg] 61 mm[Hg] eCW3 ([facility]) Systolic blood 94 mm[Hg] 94 mm[Hg] eCW3 ([facility]) Body temperature 98.2 [degF] 98.2 [degF] eCW3 ( [facility]) Heart rate 20 /min 20 /min eCW3 ([facility]) Body mass index 22.21 kg/m2 22.21 kg/m2 eCW3 ([facility] udson (BMI) [Ratio] [facility]) Body weight 110 [lb_av] 110 [lb_av] eCW3 ([facility]) Body height 59 [in_i] 59 [in_i] eCW3 ([facility]) Patient Treatment Plan of Care Planned Activity Planned Date Details Description Data Source (s) Metronidazole 0.0075 09/01/2018 12:00:00 eCW2 (Planned MG/MG Vaginal Gel AM EDT [facility] [place] [[facility]] [employer])
[2020-02-12] MEDS ORDERED: ACETAMINOPHEN INJECTION 100 ML IVPB ONE (11:12)
[2020-02-12] MEDS ORDERED: METOCLOPRAMIDE HCL INJECTION 10 MG/2 ML VIAL ONE (11:12)
[2020-02-12 11:43] LABS: BASO % 0.5 % (0-2.0); HEMATOCRIT 32.8 % (32.4-45.2); MCH 31.1 pg (25.7-33.7); MCHC 33.6 g/dl (32.0-36.0); MEAN CELL VOLUME 92.4 fl (80-96); MEAN PLT VOLUME 8.6 fl (7.5-11.1); NEUT % 78.5 % (42.8-82.8); PLATELET COUNT 188 K/MM3 (134-434); RBC 3.55 M/mm3 (3.60-5.2); RDW 12.3 % (11.6-15.6); WHITE BLOOD COUNT 8.4 K/mm3 (4.0-10.0)
[2020-02-12 11:47] LABS: EPI CELLS >36 /uL (0-25.1); HYALINE CASTS 4 /uL (0-3.1); PH,URINE 7.5 (5.0-8.0); URINE APPEARANCE CLOUDY; URINE BACTERIA 4541 /uL (0-1359); URINE BILIRUBIN NEGATIVE (NEGATIVE); URINE COLOR YELLOW; URINE GLUCOSE (UA) TRACE (NEGATIVE); URINE KETONE NEGATIVE (NEGATIVE); URINE LEUK ESTERASE TRACE (NEGATIVE); URINE NITRITE NEGATIVE (NEGATIVE); URINE PROTEIN NEGATIVE (NEGATIVE); URINE RBC 25 /uL (0-23.9); URINE UROBILINOGEN 0.2 mg/dL (0.2-1.0); URINE WBC 25 /uL (0-25.8)
[2020-02-12 12:08] LABS: BILIRUBIN,TOTAL 0.2 mg/dL (0.2-1); BLOOD UREA NITROGEN 7.9 mg/dL (7-18); CALCIUM 8.4 mg/dL (8.5-10.1); CREATININE 0.5 mg/dL (0.55-1.3); MAGNESIUM 1.9 mg/dL (1.8-2.4); POTASSIUM 3.6 mmol/L (3.5-5.1); TOT PROT 6.1 g/dl (6.4-8.2)
--- NOTE | 2020-02-12 12:13 | PDOC ---
History of Present Illness - General Chief Complaint: Headache Stated Complaint: 15 W PREG/HEADACHE/DIZZINESS Time Seen by Provider: 02/12/20 10:28 History Source: Patient Exam Limitations: No Limitations - History of Present Illness Initial Comments: 02/12/20 12:03 39-year-old female history of migraine headaches, , 2 terminations, 2 miscarriages currently 15 weeks gestation, 2 live children presents complaining of intermittent frontal headache with spinning sensation, nausea and photosensitivity since yesterday evening. Patient denies vision changes, fever, chills, neck pain, ear pain, weakness, changes in speech, recent illness, shortness of breath, chest pain, abdominal pain, diarrhea, vaginal bleeding, vaginal discharge, urinary symptoms or any other complaints. Patient denies taking any medication for her headache. Denies sick contacts. ROS: as above PE: GENERAL: well-appearing, NAD HEAD: NCAT EYES: Pupils equal, round and reactive to light, sclera anicteric, conjunctiva clear ENT: pharynx: no erythema, no exudate, uvula midline NECK: supple CHEST: nontender RESP: clear, no w/r/r CARDIO: rrr, no m/g/r ABD: +BS, soft, nontender, gravid abdomen BACK: no midline spinal ttp, no CVAT EXTREMITIES: Normal range of motion, no edema NEUROLOGICAL: Normal speech, normal gait, 5/5 strength and sensation SKIN: Warm, Dry Is this a multiple visit Asthma Patient?: No Past History - Medical History Allergies/Adverse Reactions: Allergies Allergy/AdvReac Type Severity Reaction Status Date / Time No Known Allergies Allergy Verified 02/12/20 10:15 Home Medications: Ambulatory Orders Ibuprofen [Motrin -] 600 mg PO QID #28 tablet 05/15/18 Ibuprofen [Motrin -] 600 mg PO QID #28 tablet 05/15/18 Nitrofurantoin Macrocrystal [Nitrofurantoin] 100 mg PO BID #14 capsule 09/18/18 Nitrofurantoin Monohyd/M-Cryst [Macrobid -] 100 mg PO BID #14 capsule 09/18/18 Nitrofurantoin Monohyd/M-Cryst [Macrobid -] 100 mg PO BID #14 capsule 09/18/18 Butalb/Acetaminophen/Caffeine [Fioricet 50-300-40 mg Capsule] 1 each PO Q6H PRN #20 capsule 12/06/18 Pnv No.121/Iron/Folic Acid [ Multivitamin Tablet] 1 each PO DAILY #30 tablet 12/01/19 Nitrofurantoin Monohyd/M-Cryst [Macrobid -] 100 mg PO BID #14 capsule 01/17/20 Cephalexin Monohydrate [Keflex -] 500 mg PO BID 7 Days #14 capsule 02/12/20 Anemia: Yes Asthma: No Cancer: No Cardiac Disorders: No CVA: No COPD: No CHF: No Dementia: No Diabetes: No GI Disorders: No Disorders: No HTN: No Hypercholesterolemia: No Liver Disease: No Seizures: No Thyroid Disease: No - Surgical History Abdominal Surgery: Yes Appendectomy: No Cardiac Surgery: No Cholecystectomy: No Lung Surgery: No Neurologic Surgery: No Orthopedic Surgery: No - Reproductive History Is Patient Now?: Yes (#): 6 Para: 2 Cervical CA: No Dysfunctional Uterine Bleeding: No Ectopic : Yes (today) Endometrial CA: No Polycystic Ovaries: No Therapeutic (s) & number: Yes (2) Tubal Ligation: No Spontaneous : 3 - Immunization History Immunization Up to Date: Yes - Psycho-Social/Smoking History Smoking History: Never smoked Have you smoked in the past 12 months: Yes Number of Cigarettes Smoked Daily: 10 If you are a former smoker, when did you quit?: 2 weeks 'Breaking Loose' booklet given: 08/11/17 - Substance Abuse Hx (Audit-C & DAST Scrn) How often the patient has a drink containing alcohol: Never Score: In Men: 4 or > Positive; In Women: 3 or > Positive: 0 Screen Result (Pos requires Nsg. Audit-10AR): Negative In the last yr the pt used illegal drug/Rx for NonMed reason: No Score: Yes response is considered Positive: 0 Screen Result (Positive result requires Nsg. DAST-10): Negative *Physical Exam - Vital Signs Last Vital Signs Temp Pulse Resp BP Pulse Ox 98.1 F 84 20 112/59 L 100 02/12/20 10:15 02/12/20 10:15 02/12/20 10:15 02/12/20 10:15 02/12/20 10:15 ED Treatment Course - LABORATORY CBC & Chemistry Diagram: 02/12/20 11:25 02/12/20 11:25 - ADDITIONAL ORDERS Additional order review: Laboratory Results 02/12/20 11:25 Urine Color Yellow Urine Appearance Cloudy Urine pH 7.5 D Ur Specific Richey 1.020 Urine Protein Negative Urine Glucose (UA) Trace Urine Ketones Negative Urine Blood Negative Urine Nitrite Negative Urine Bilirubin Negative Urine Urobilinogen 0.2 Ur Leukocyte Esterase Trace Urine WBC (Auto) 25 Urine RBC (Auto) 25 Urine Casts (Auto) 4 U Epithel Cells (Auto) >36 Urine Bacteria (Auto) 4541 02/12/20 11:25 RBC 3.55 L MCV 92.4 MCHC 33.6 RDW 12.3 MPV 8.6 Neutrophils % 78.5 Lymphocytes % 12.0 D Monocytes % 6.0 Eosinophils % 3.0 Basophils % 0.5 - Medications Given in the ED: ED Medications Discontinued Medications Generic Name Dose Route Start Last Admin Trade Name Randy PRN Reason Stop Dose Admin Acetaminophen 1,000 mg 02/12/20 10:53 02/12/20 11:31 Ofirmev Injection - IVPB 02/12/20 10:54 1,000 mg ONCE ONE Administration Metoclopramide HCl 10 mg 02/12/20 10:53 02/12/20 11:31 Reglan Injection - IVPUSH 02/12/20 10:54 10 mg ONCE ONE Administration Sodium Chloride 1,000 ml 02/12/20 10:53 02/12/20 11:31 Normal Saline - IV 02/12/20 10:54 1,000 ml ONCE ONE Administration Medical Decision Making - Medical Decision Making 02/12/20 12:13 39-year-old female history of migraine headaches, , 2 terminations, 2 miscarriages currently 15 weeks gestation, 2 live children presents complaining of intermittent frontal headache with spinning sensation, nausea and photosensitivity since yesterday evening. Patient denies vision changes, fever, chills, neck pain, ear pain, weakness, changes in speech, recent illness, shortness of breath, chest pain, abdominal pain, diarrhea, vaginal bleeding, vaginal discharge, urinary symptoms or any other complaints. Patient denies taking any medication for her headache. Denies sick contacts. 02/12/20 13:27 Discussed elevated LFTs and bacteria in the urine with patient Copies of these results provided to patient, she will inform her OB of these results Prescription for cephalexin sent to pharmacy Patient has an appointment with her OB tomorrow Headache resolved after acetaminophen IV and 1 L of NS Agrees with discharge plan Discharge - Discharge Information Problems reviewed: Yes Clinical Impression/Diagnosis: Headache Qualifiers: Headache type: unspecified Headache chronicity pattern: unspecified pattern Intractability: not intractable Qualified Code(s): R51 - Headache Condition: Stable Disposition: HOME - Admission No - Additional Discharge Information Prescriptions: Cephalexin Monohydrate [Keflex -] 500 mg PO BID 7 Days #14 capsule - Follow up/Referral - Patient Discharge Instructions Additional Instructions: Take cephalexin 500 mg 1 tablet twice a day for 7 days for bacteria found in y our urine Keep your scheduled appointment with your OB doctor tomorrow Rest, remain hydrated Return to ED if any concerning symptoms - Post Discharge Activity
[2020-02-12 14:07] VITALS: BP 110/75; PULSE 85
== END 2020-02-12 13:30 | disposition home or self-care (01) ==
LOC: JER 10:05
PROC: 3E033NZ Introduction of Analgesics, Hypnotics, Sedatives into Peripheral Vein, Percutaneous Approach (ICD-10-PCS; principal; 2020-02-12)
PROC: 3E033GC Introduction of Other Therapeutic Substance into Peripheral Vein, Percutaneous Approach (ICD-10-PCS; 2020-02-12)
DX: R51 Headache (principal)
CPT/HCPCS: 36415; 80053; 81003; 83735; 85025; 96374; 96375; 99285-25; J0131

== ENCOUNTER 2020-03-02 08:20 | Inpatient (IN) | payer OTHER ==
--- OUTSIDE RECORDS SUMMARY | 2020-03-02 08:37 | XMS ---
:1980 Author Organization [facility] Support Name Relationship Address Phone [place] Unavailable [address] [place] [address] MARYCRUZ DEL[place] [address] MARYCRUZ DELGADO [place] [address] GEORGE URENA Unavailable [address] [place] [address] Re-disclosure Warning The records that you are [...] is protected by Article 27-F of the [facility] Public Health law. If you continue you may haveaccess to information: Regarding HIV / AIDS; Provided by facilities licensed or operated by the [facility] Office of Mental Health; or Provided by the [facility] Office for People With Developmental Disabilities. If such information is present, then the following [facility] mandated warning applies: This information has been [...] law may result in a fine or fpc sentence or both. A general authorization for the release of medical or other information is NOT sufficient authorization for further disclosure. Medications Medication Brand Start Product Dose Route Administrative Pharmacy [facility] Indications Reaction Description Data Name Date Form Instructions Instructions Source(s) Amoxicillin Amoxic .0 suspend Amoxic illin eCW3 875 MG Oral illin 2020 {tabl ed 875 MG ([facility] Tablet 875 MG 12:00: et_wi [place] 00 AM th_fo Health EDT od} Care) Amoxicillin Amoxic .0 suspend Amoxic illin eCW3 875 MG Oral illin 2020 {tabl ed 875 MG ([facility] son Tablet 875 MG 12:00: et_wi [place] 00 AM th_fo Health EDT od} Care) Cimetidine Cimeti .0 active Cimetidi ne eCW3 200 MG Oral dine 2019 {tabl 200 MG ([facility] Tablet 200 MG 12:00: et_as [place] 00 AM _need Health EST ed} Care) Cimetidine Cimeti .0 suspend Cimetid ine eCW3 200 MG Oral dine 2020 {tabl ed 200 MG ([facility] Tablet 200 MG 12:00: et_as [place] 00 AM _need Health EST ed} Care) Chantix Chanti 07/04/ active Chantix eCW 3 Starting x 2019 Starting ([facility] Babatunde Starti 12:00: Month Babatunde R iver 0.5 MG X 11 ng 00 AM 0.5 MG X 11 Health & 1 MG X 42 Month EST & 1 MG X 42 Care) Babatunde 0.5 MG X 11 & 1 MG X 42 Omeprazole Omepra 07/04/ suspend Omepraz ole eCW3 40 MG zole 2019 ed 40 MG ([facility] Delayed 40 MG 12:00: [place] Release 00 AM Health Oral EST Care) Capsule Omeprazole Omepra 07/04/ suspend Omepraz ole eCW3 40 MG zole 2020 ed 40 MG ([facility] Delayed 40 MG 12:00: [facility] Release 00 AM Health Oral EST Care) Capsule Omeprazole Omepra 07/04/ active Omeprazo le eCW3 40 MG zole 2020 40 MG ([facility] Delayed 40 MG 12:00: [facility] Release 00 AM Health Oral EST Care) Capsule Cimetidine Cimeti 1.0 suspend Cimetid ine eCW3 200 MG Oral dine 2020 {tabl ed 200 MG ([facility] Tablet 200 MG 12:00: et_as [place] 00 AM _need Health EST ed} Care) Insurance Providers Payer name Policy type Policy ID Covered Covered libertarian's Policy P jose / Coverage libertarian ID relationship to Gutierrez Inf ormation type gutierrez [facility] MEDICAID [id number] COMM PLAN SELF PAY SP INSURANCE [facility] MEDICAID [id number] COMM PLAN Problems, Conditions, and Diagnoses Code Display Name Description Problem Type Effective Dates Data Source(s) F17.200 Smoker Smoker Problem 07/04/2019 eCW3 ([facility] 12:00:00 AM EST [facility] Care) K21.0 GERD with GERD with Problem 07/04/2019 eCW3 ([facility] esophagitis esophagitis 12:00:00 AM EST [facility] Results ID Date Data Source [id number] 02/27/2020 06:41:00 PM EDT [facility] Name Value Range Interpretation Code Description Data Char rce(s) Supporting Document(s ) HOLOGIC [facility] SARS-CoV-2 [facility]MA PCR This lab was ordered by MELITA ALDRICH MD and reported by [email or web address]. ID Date Data Source [id number] 02/20/2020 08:25:00 AM EDT [facility] Name Value Range Interpretation Code Description Data Char rce(s) Supporting Document(s ) HOLOGIC [facility] SARS-CoV-2 TMA PCR This lab was ordered by MELITA ALDRICH MD and reported by [email or web address]. ID Date Data Source [id number] 02/13/2020 12:00:00 AM EDT [facility] Name Value Range Interpretation Code Description Data Char rce(s) Supporting Document(s ) SARS-Cov-2 [facility] This lab was ordered by [email or web address] and reported by [employer]. ID Date Data Source [id number] 02/06/2020 10:39:00 AM EDT [facility] Name Value Range Interpretation Code Description Data Char rce(s) Supporting Document(s ) HOLOGIC [facility] SARS-CoV-2 TMA PCR This lab was ordered by MELITA ALDRICH MD and reported by [employer]. ID Date Data Source [id number] 01/30/2020 08:07:00 AM EDT [facility] Name Value Range Interpretation Code Description Data Char rce(s) Supporting Document(s ) HOLOGIC [facility] SARS-CoV-2 TMA PCR This lab was ordered by MELITA ALDRICH MD and reported by [employer]. ID Date Data Source [id number] 01/23/2020 03:49:00 PM EDT [facility] Name Value Range Interpretation Code Description Data Char rce(s) Supporting Document(s ) HOLOGIC [facility] SARS-CoV-2 TMA PCR This lab was ordered by MELITA ALDRICH MD and reported by [employer]. ID Date Data Source [id number] 01/16/2020 08:58:00 AM EDT [facility] Name Value Range Interpretation Code Description Data Char rce(s) Supporting Document(s ) HOLOGIC [facility] SARS-CoV-2 TMA PCR This lab was ordered by MELITA ALDRICH MD and reported by [employer]. ID Date Data Source [id number] 01/09/2020 01:12:00 PM EDT [facility] Name Value Range Interpretation Code Description Data Char rce(s) Supporting Document(s ) HOLOGIC [facility] SARS-CoV-2 TMA PCR This lab was ordered by MELITA ALDRICH MD and reported by [employer]. ID Date Data Source [id number] 12/26/2019 08:33:00 AM EDT [facility] Name Value Range Interpretation Code Description Data Char rce(s) Supporting Document(s ) HOLOGIC [facility] SARS-CoV-2 TMA PCR This lab was ordered by MELITA ALDRICH MD and reported by [employer]. ID Date Data Source [id number] 12/19/2019 03:41:00 PM EDT [facility] Name Value Range Interpretation Code Description Data Char rce(s) Supporting Document(s ) HOLOGIC [facility] SARS-CoV-2 TMA PCR This lab was ordered by MELITA ALDRICH MD and reported by [employer]. ID Date Data Source [id number] 12/05/2019 10:18:00 AM EDT [facility] Name Value Range Interpretation Code Description Data Char rce(s) Supporting Document(s ) SARS-CoV-2 [facility] , RNA This lab was ordered by MELITA ALDRICH MD and reported by [employer]. ID Date Data Source [id number] 11/28/2019 04:03:00 PM EDT [facility] Name Value Range Interpretation Code Description Data Char rce(s) Supporting Document(s ) SARS-CoV-2 [facility] , RNA This lab was ordered by MELITA ALDRICH MD and reported by [employer]. ID Date Data Source [id number] 11/21/2019 06:10:00 PM EDT [facility] Name Value Range Interpretation Code Description Data Char rce(s) Supporting Document(s ) SARS-CoV-2 [facility] , RNA This lab was ordered by MELITA ALDRICH MD and reported by [employer]. ID Date Data Source [id number] 11/14/2019 05:00:00 PM EDT [facility] Name Value Range Interpretation Code Description Data Char rce(s) Supporting Document(s ) SARS-CoV-2 [facility] , RNA This lab was ordered by MELITA ALDRICH MD and reported by [employer]. ID Date Data Source [id number] 11/07/2019 09:14:00 AM EDT [facility] Name Value Range Interpretation Code Description Data Char rce(s) Supporting Document(s ) SARS-CoV-2 [facility] , RNA This lab was ordered by MELITA ALDRICH MD and reported by [employer]. ID Date Data Source [id number] 10/31/2019 12:00:00 AM EDT [facility] Name Value Range Interpretation Code Description Data Char rce(s) Supporting Document(s ) 2019-nCoV [facility] RNA XXX GABRIELA+probe- Imp This lab was ordered by [facility] and reported by [employer]. ID Date Data Source [id number] 10/24/2019 08:55:00 AM EDT [facility] Name Value Range Interpretation Code Description Data Char rce(s) Supporting Document(s ) SARS-CoV-2 [facility] , RNA This lab was ordered by [facility] and reported by [employer]. ID Date Data Source [id number] 10/17/2019 04:43:00 PM EDT [facility] Name Value Range Interpretation Code Description Data Char rce(s) Supporting Document(s ) SARS-CoV-2 [facility] , RNA This lab was ordered by [facility] and reported by [employer]. ID Date Data Source [id number] 10/17/2019 04:43:00 PM EDT [facility] Name Value Range Interpretation Code Description Data Char rce(s) Supporting Document(s ) SARS-CoV-2 [facility] , RNA This lab was ordered by [facility] and reported by [employer]. ID Date Data Source [id number] 10/13/2019 04:28:00 PM EDT [facility] Name Value Range Interpretation Code Description Data Char rce(s) Supporting Document(s ) SARS-CoV-2 [facility] , RNA This lab was ordered by [facility] and reported by [employer]. ID Date Data Source [id number] 10/12/2019 11:53:00 AM EDT [facility] Name Value Range Interpretation Code Description Data Char rce(s) Supporting Document(s ) SARS-CoV-2 [facility] , RNA This lab was ordered by [facility] and reported by [employer]. Procedure Social History Code Duration Value Status Description Data Source(s ) Smoking 11/06/2019 12:00:00 Former Smoker completed Former Smoker eCW3 ([facility]) Smoking 11/06/2019 12:00:00 Former Smoker completed Former Smoker eCW3 ([facility]) Smoking 07/15/2019 12:00:00 Former Smoker completed Former Smoker eCW3 ([facility])
[2020-03-02] MEDS ORDERED: ACETAMINOPHEN 325 MG TABLET (FP) PO ONE (09:05)
[2020-03-02] MEDS ORDERED: ACETAMINOPHEN 325 MG TABLET (FP) ONE (09:16)
--- NOTE | 2020-03-02 09:19 | PDOC ---
History of Present Illness - General Chief Complaint: Pain, Acute Stated Complaint: 18 WKS PRGT ABD PAIN Time Seen by Provider: 03/02/20 09:02 - History of Present Illness Initial Comments: 03/02/20 09:18 HPI: This is a 39 y/o female A2 who is 18 weeks and presenting to the ED with intermittent RUQ pain for the past week. She describes it as a stabbing pain, worse after eating, and provoked by palpation. For the past two days, she has also had accompanying nausea but no vomiting. She denies previous history of gallstones. She is also complaining of diffuse itching for the past 2 weeks, which she experienced earlier in her , but had subsided. She reports that she has had elevated liver enzymes found incidentally throughout this and was referred to a specialist at [facility] who she will be seeing March 19. Admits to dysuria and white vaginal discharge but she denies vaginal bleeding or hematuria. She has a history of frequent UTI's. No previous hx of kidney stones. Denies fever/chills, blood in stool. ROS: GENERAL/CONSTITUTIONAL: No fever/chills, diaphoresis, or weakness. HEENT: No change in vision. No ear pain. No sore throat. CARDIOVASCULAR: No chest pain, palpitations or peripheral edema RESPIRATORY: No shortness of breath, dyspnea with exertion, cough, wheezing, or hemoptysis. GASTROINTESTINAL: Admits to RUQ abdominal pain accompanied by nausea but no vomiting. Denies diarrhea or constipation. GENITOURINARY: Admits to dysuria and frequent UTIs. Denies hematuria or vaginal bleeding. MUSCULOSKELETAL: No joint or muscle swelling or pain. SKIN: No rash or hives NEUROLOGIC: No headache, vertigo, focal weakness, loss of consciousness, or change in strength/sensation. HEMATOLOGIC/LYMPHATIC: No anemia, easy bleeding, or history of blood clots. PMH: Denied PSx: Denied Social Hx: Denied etoh, tobacco, drug use Meds: See nurse note Allergies: See nurse note PE: GENERAL: Awake, alert, and fully oriented, in no acute distress. Patient is appropriately conversational. Non-toxic in appearance. HEENT: Normocephalic, atraumatic. PERRLA, EOMI. No conjunctival pallor. Moist mucous membranes. NECK: Normal ROM and supple. No lymphadenopathy, JVD, or masses. CARDIOVASCULAR: Regular rate and rhythm, normal S1 and S2, no murmurs, rubs or g allops PULMONARY: No respiratory distress. Breath sounds equal, clear to auscultation bilaterally. No wheezes, rales or rhonchi. ABDOMEN: Soft, nontender, normoactive bowel sounds. No guarding, no rebound. No masses EXTREMITIES: Normal range of motion, no edema or erythema, no calf tenderness. NEUROLOGICAL: Cranial nerves II through XII grossly intact. Normal speech, normal gait SKIN: Warm, Dry, normal turgor, no rashes or lesions noted. Normal capillary refill. PSYCHIATRIC: Appropriate affect. Cooperative. MDM: This is a 39 y/o female A2 who is 18 weeks and presenting to the ED with multiple complaints. She has had intermittent RUQ pain for the past week associated with elevated liver enzymes. She is also complaining of dysuria and white vaginal discharge. - Pain has become more constant in the past day or two. - Patient non-toxic in appearance, afebrile and hemodynamically stable. - No abdominal tenderness on exam, not reproducible with palpation. Negative murphys sign. ddx: gallstones vs uti vs kidney stones CBC, CMP Preg U/S, RUQ U/S EKG: No ST elevations or T wave inversions Sinus rhythm, Vent rate 67bpm Pr interval 118ms QT/QTc 420/443ms Incomplete RBBB U/S: IMPRESSION: Single live intrauterine gestation of 18 weeks 1 day gestational age. Abdominal U/S: IMPRESSION: 1. Partially contracted gallbladder with no evidence of cholelithiasis or acute cholecystitis. 2. Mild right-sided hydronephrosis with right nephrolithiasis. Clinical correlation and follow-up recommended. Please see above discussion. 03/02/20 12:46 Labs: WBC 9.2 Lipase neg ALT 85 Urine: 2+ leuk esterase Trace blood Urine WBC 40 Bacteria 461 - Concern for possible kidney stone due to hydronephrosis, presence of stones in r. kidney vs infected kidney stone due to positive urine 03/02/20 12:57 - Spoke with Dr. Landrum who agreed to see the patient. Recommended IV antibiotics until culture results. Rocephin. 03/02/20 13:10 - Microblogged - 1g Rocephin in ED - Patient accepted to med/surg Past History - Medical History Allergies/Adverse Reactions: Allergies Allergy/AdvReac Type Severity Reaction Status Date / Time No Known Allergies Allergy Verified 03/02/20 08:21 Home Medications: Ambulatory Orders Vitamins (Sjr) - 1 tab PO DAILY 03/02/20 Anemia: Yes Asthma: No Cancer: No Cardiac Disorders: No CVA: No COPD: No CHF: No Dementia: No Diabetes: No GI Disorders: No Disorders: No HTN: No Hypercholesterolemia: No Liver Disease: No Seizures: No Thyroid Disease: No - Surgical History Abdominal Surgery: Yes Appendectomy: No Cardiac Surgery: No Cholecystectomy: No Lung Surgery: No Neurologic Surgery: No Orthopedic Surgery: No - Reproductive History Is Patient Now?: Yes (#): 6 Para: 2 Cervical CA: No Dysfunctional Uterine Bleeding: No Ectopic : Yes (today) Endometrial CA: No Polycystic Ovaries: No Therapeutic (s) & number: Yes (2) Tubal Ligation: No Spontaneous : 3 - Immunization History Immunization Up to Date: Yes - Psycho-Social/Smoking History Smoking History: Never smoked Have you smoked in the past 12 months: Yes Number of Cigarettes Smoked Daily: 10 If you are a former smoker, when did you quit?: 2 weeks 'Breaking Loose' booklet given: 08/11/17 - Substance Abuse Hx (Audit-C & DAST Scrn) How often the patient has a drink containing alcohol: Never Score: In Men: 4 or > Positive; In Women: 3 or > Positive: 0 Screen Result (Pos requires Nsg. Audit-10AR): Negative In the last yr the pt used illegal drug/Rx for NonMed reason: No Score: Yes response is considered Positive: 0 Screen Result (Positive result requires Nsg. DAST-10): Negative *Physical Exam - Vital Signs Last Vital Signs Temp Pulse Resp BP Pulse Ox 98.6 F 90 18 116/73 100 03/02/20 08:22 03/02/20 08:22 03/02/20 08:22 03/02/20 08:22 03/02/20 08:22 ED Treatment Course - LABORATORY CBC & Chemistry Diagram: 03/02/20 09:35 03/02/20 09:35 Discharge - Discharge Information Problems reviewed: Yes Clinical Impression/Diagnosis: Kidney stone complicating Qualifiers: Trimester: second trimester Qualified Code(s): O26.832 - related renal disease, second trimester - Follow up/Referral - Patient Discharge Instructions - Post Discharge Activity
[2020-03-02 09:49] LABS: BASO % 0.5 % (0-2.0); EOS % 3.2 % (0-4.5); EPI CELLS >36 /uL (0-25.1); HEMATOCRIT 32.3 % (32.4-45.2); HEMOGLOBIN 11.2 GM/dL (10.7-15.3); HYALINE CASTS 15 /uL (0-3.1); LYMPH % 10.6 % (8-40); MCH 32.2 pg (25.7-33.7); MCHC 34.8 g/dl (32.0-36.0); MEAN CELL VOLUME 92.7 fl (80-96); MEAN PLT VOLUME 8.5 fl (7.5-11.1); MONO % 5.6 % (3.8-10.2); NEUT % 80.1 % (42.8-82.8); PH,URINE 6.5 (5.0-8.0); PLATELET COUNT 191 K/MM3 (134-434); RBC 3.48 M/mm3 (3.60-5.2); RDW 12.8 % (11.6-15.6); URINE APPEARANCE CLOUDY; URINE BACTERIA >9,000 /uL (0-1359); URINE BILIRUBIN NEGATIVE (NEGATIVE); URINE COLOR YELLOW; URINE GLUCOSE (UA) NEGATIVE (NEGATIVE); URINE KETONE NEGATIVE (NEGATIVE); URINE LEUK ESTERASE 2+ (NEGATIVE); URINE NITRITE NEGATIVE (NEGATIVE); URINE PROTEIN NEGATIVE (NEGATIVE); URINE RBC 18 /uL (0-23.9); URINE UROBILINOGEN 0.2 mg/dL (0.2-1.0); URINE WBC 396 /uL (0-25.8); WHITE BLOOD COUNT 9.2 K/mm3 (4.0-10.0)
[2020-03-02 09:51] LABS: INR 0.99 (0.83-1.09)
[2020-03-02 09:52] LABS: POTASSIUM 3.7 mmol/L (3.5-5.1)
[2020-03-02 09:54] LABS: CALCIUM 8.3 mg/dL (8.5-10.1)
[2020-03-02 09:55] LABS: ALBUMIN 2.9 g/dl (3.4-5.0); BLOOD UREA NITROGEN 11.4 mg/dL (7-18)
[2020-03-02 09:58] LABS: CREATININE 0.6 mg/dL (0.55-1.3)
[2020-03-02 09:59] LABS: BILIRUBIN,TOTAL 0.2 mg/dL (0.2-1); TOT PROT 6.3 g/dl (6.4-8.2)
--- NOTE | 2020-03-02 11:28 | PDOC ---
Attending Attestation - Resident Resident Name: MarshallGris - ED Attending Attestation I have performed the following: I have examined & evaluated the patient, The case was reviewed & discussed with the resident, I agree w/resident's findings & plan, Exceptions are as noted - HPI HPI: 03/02/20 11:25 39 yo F ~18 weeks p/w R upper abd pain, intermittent x1 week. States never had this pain before. Denies n/v. Denies changes in bowel habits. Denies urinary complaints. No vaginal itching, pain or discharge. Denies h/o kidney stones. - Physicial Exam PE: 03/02/20 11:26 General: well appearing HEENT: NCAT, MMM Abdomen: gravid, nt, no rebound, no guarding Back: no CVA tenderness - Medical Decision Making 03/02/20 11:27 39 yo F with R upper abdominal pain, no tenderness on exam, possible acute choley although less likely as abdomen non-tender and negative castillo's, also possible kidney stone vs. GERD vs. UTI vs. round ligament pain. Plan: -labs -urine -complete abdominal ultrasound -pain control as needed -reassess This clinical encounter is taking place during a federal and state health care emergency attributable to the novel Warner Virus pandemic. The Knockup Worker of the Department of Health and Human Services has declared, pursuant to the Public Health Service Act 319F-3 (42 U.S.C. 247d-6d), that a covered persons activities related to medical countermeasures against COVID-19 will be immune from liability under Federal and State law. 03/02/20 14:08 Sono with non-obstructing kidney stone and mild R sided hydro. Urine suspicious for UTI. Will admit for possible infected stone. Urology consulted. Patient given CTX. Discharge - Discharge Information Problems reviewed: Yes Clinical Impression/Diagnosis: Kidney stone complicating Qualifiers: Trimester: second trimester Qualified Code(s): O26.832 - related renal disease, second trimester; N20.0 - Calculus of kidney - Follow up/Referral - Patient Discharge Instructions - Post Discharge Activity
[2020-03-02 11:44] LABS: YEAST FEW (NEGATIVE)
[2020-03-02 11:49] LABS: URINE APPEARANCE CLEAR; URINE BILIRUBIN NEGATIVE (NEGATIVE); URINE COLOR YELLOW; URINE GLUCOSE (UA) NEGATIVE (NEGATIVE); URINE KETONE NEGATIVE (NEGATIVE); URINE LEUK ESTERASE 2+ (NEGATIVE); URINE NITRITE NEGATIVE (NEGATIVE); URINE PROTEIN NEGATIVE (NEGATIVE); URINE UROBILINOGEN 0.2 mg/dL (0.2-1.0)
[2020-03-02 12:37] LABS: EPI CELLS 28.3 /uL (0-25.1); HYALINE CASTS 0.6 /uL (0-3.1); URINE BACTERIA 461.5 /uL (0-1359); URINE RBC 2.6 /uL (0-23.9); URINE WBC 40.3 /uL (0-25.8)
[2020-03-02] MEDS ORDERED: CEFTRIAXONE 1,000 MG in DEXTROSE 5%-WATER - 50 ML IVPB ONE (13:11)
[2020-03-02] MEDS ORDERED: CEFTRIAXONE 1 GM/50 ML BAG ONE (13:22)
--- OUTSIDE RECORDS SUMMARY | 2020-03-02 14:04 | XMS ---
:1980 Author Organization [facility] Support Name Relationship Address Phone CONOR ON KAMERON Unavailable [address] [place] [address] MARYCRUZ DELG[place] [address] MARYCRUZ DELGADO Mother [place] [address] URENAGEORGE Perales Unavailable [address] [place] [address] Re-disclosure Warning The records that you are [...] is protected by Article 27-F of the [facility] Public Health law. If you continue you may haveaccess to information: Regarding HIV / AIDS; Provided by facilities licensed or operated by the [facility] Office of Mental Health; or Provided by the [facility] Office for People With Developmental Disabilities. If such information is present, then the following [facility] mandated warning applies: This information has [...] law may result in a fine or long-term sentence or both. A general authorization for the release of medical or other information is NOT sufficient authorization for further disclosure. Medications Medication Brand Start Product Dose Route Administrative Pharmacy [facility] Indications Reaction Description Data Name Date Form [...] name Policy type Policy ID Covered Covered green party's Policy P jose / Coverage green party ID relationship to Gutierrez Inf ormation type gutierrez [facility] MEDICAID [id number] COMM PLAN SELF PAY SP INSURANCE [facility] MEDICAID [id number] COMM PLAN Problems, Conditions, and Diagnoses Code Display Name Description Problem Type Effective Dates Data Source(s) F17.200 Smoker Smoker Problem 07/04/2019 eCW3 ([facility] 12:00:00 AM EST [facility]) K21.0 GERD with GERD with Problem 07/04/2019 eCW3 ([facility] esophagitis esophagitis 12:00:00 AM [facility] Results ID Date Data Source [id number] 02/27/2020 06:41:00 PM EDT [facility] Name Value Range Interpretation Code Description Data Char rce(s) Supporting Document(s ) HOLOGIC [facility] SARS-CoV-2 TMA PCR This lab was ordered by MELITA ALDRICH MD and reported by [facility]. ID Date Data Source [id number] 02/20/2020 08:25:00 AM EDT [facility] Name Value Range Interpretation Code Description Data Char rce(s) Supporting Document(s ) HOLOGIC [facility] SARS-CoV-2 TMA PCR This lab was ordered by MELITA ALDRICH MD and reported by [facility]. ID Date Data Source [id number] 02/13/2020 12:00:00 AM EDT [facility] Name Value Range Interpretation Code Description Data Char rce(s) Supporting Document(s ) SARS-Cov-2 [facility] This lab was ordered by [facility] and reported by [employer] [facility]. ID Date Data Source [id number] 02/06/2020 10:39:00 AM EDT [facility] Name Value Range Interpretation Code Description Data Char rce(s) Supporting Document(s ) HOLOGIC [facility] SARS-CoV-2 TMA PCR This lab was ordered by MELITA ALDRICH MD and reported by [facility]. ID Date Data Source [id number] 01/30/2020 08:07:00 AM EDT [facility] Name Value Range Interpretation Code Description Data Char rce(s) Supporting Document(s ) HOLOGIC [facility] SARS-CoV-2 TMA PCR This lab was ordered by MELITA ALDRICH MD and reported by [facility]. ID Date Data Source [id number] 01/23/2020 03:49:00 PM EDT [facility] Name Value Range Interpretation Code Description Data Char rce(s) Supporting Document(s ) HOLOGIC [facility] SARS-CoV-2 TMA PCR This lab was ordered by MELITA ALDRICH MD and reported by [facility]. ID Date Data Source [id number] 01/16/2020 08:58:00 AM EDT [facility] Name Value Range Interpretation Code Description Data Char rce(s) Supporting Document(s ) HOLOGIC [facility] SARS-CoV-2 TMA PCR This lab was ordered by MELITA ALDRICH MD and reported by [facility]. ID Date Data Source [id number] 01/09/2020 01:12:00 PM EDT [facility] Name Value Range Interpretation Code Description Data Char rce(s) Supporting Document(s ) HOLOGIC [facility] SARS-CoV-2 TMA PCR This lab was ordered by MELITA ALDRICH MD and reported by [facility]. ID Date Data Source [id number] 12/26/2019 08:33:00 AM EDT [facility] Name Value Range Interpretation Code Description Data Char rce(s) Supporting Document(s ) HOLOGIC [facility] SARS-CoV-2 TMA PCR This lab was ordered by MELITA ALDRICH MD and reported by [facility]. ID Date Data Source [id number] 12/19/2019 03:41:00 PM EDT [facility] Name Value Range Interpretation Code Description Data Char rce(s) Supporting Document(s ) HOLOGIC [facility] SARS-CoV-2 TMA PCR This lab was ordered by MELITA ALDRICH MD and reported by [facility]. ID Date Data Source [id number] 12/05/2019 10:18:00 AM EDT [facility] Name Value Range Interpretation Code Description Data Char rce(s) Supporting Document(s ) SARS-CoV-2 [facility] , RNA This lab was ordered by MELITA ALDRICH MD and reported by [facility]. ID Date Data Source [id number] 11/28/2019 04:03:00 PM EDT [facility] Name Value Range Interpretation Code Description Data Char rce(s) Supporting Document(s ) SARS-CoV-2 [facility] , RNA This lab was ordered by MELITA ALDRICH MD and reported by [facility]. ID Date Data Source [id number] 11/21/2019 06:10:00 PM EDT [facility] Name Value Range Interpretation Code Description Data Char rce(s) Supporting Document(s ) SARS-CoV-2 [facility] , RNA This lab was ordered by MELITA ALDRICH MD and reported by [facility]. ID Date Data Source [id number] 11/14/2019 05:00:00 PM EDT [facility] Name Value Range Interpretation Code Description Data Char rce(s) Supporting Document(s ) SARS-CoV-2 [facility] , RNA This lab was ordered by MELITA ALDRICH MD and reported by [facility]. ID Date Data Source [id number] 11/07/2019 09:14:00 AM EDT [facility] Name Value Range Interpretation Code Description Data Char rce(s) Supporting Document(s ) SARS-CoV-2 [facility] , RNA This lab was ordered by MELITA ALDRICH MD and reported by [facility]. ID Date Data Source [id number] 10/31/2019 12:00:00 AM EDT [facility] Name Value Range Interpretation Code Description Data Char rce(s) Supporting Document(s ) 2019-nCoV [facility] RNA XXX GABRIELA+probe- Imp This lab was ordered by [facility] and reported by [facility]. ID Date Data Source [id number] 10/24/2019 08:55:00 AM EDT [facility] Name Value Range Interpretation Code Description Data Char rce(s) Supporting Document(s ) SARS-CoV-2 [facility] , RNA This lab was ordered by [facility] and reported by [facility]. ID Date Data Source [id number] 10/17/2019 04:43:00 PM EDT [facility] Name Value Range Interpretation Code Description Data Char rce(s) Supporting Document(s ) SARS-CoV-2 [facility] , RNA This lab was ordered by [facility] and reported by [facility]. ID Date Data Source [id number] 10/17/2019 04:43:00 PM EDT [facility] Name Value Range Interpretation Code Description Data Char rce(s) Supporting Document(s ) SARS-CoV-2 [facility] , RNA This lab was ordered by [facility] and reported by [facility]. ID Date Data Source [id number] 10/13/2019 04:28:00 PM EDT [facility] Name Value Range Interpretation Code Description Data Char rce(s) Supporting Document(s ) SARS-CoV-2 [facility] , RNA This lab was ordered by [facility] and reported by [facility] [employer] ID Date Data Source [id number] 10/12/2019 11:53:00 AM EDT [facility] Name Value Range Interpretation Code Description Data Char rce(s) Supporting Document(s ) SARS-CoV-2 [facility] , RNA This lab was ordered by [employer] and reported by [facility]. Procedure Social History Code Duration Value Status Description Data Source(s ) Smoking 11/06/2019 12:00:00 Former Smoker completed Former Smoker eCW3 ([facility]) Smoking 11/06/2019 12:00:00 Former Smoker completed Former Smoker eCW3 ([facility]) Smoking 07/15/2019 12:00:00 Former Smoker completed Former Smoker eCW3 ([facility])
--- NOTE | 2020-03-02 16:07 | HP ---
CHIEF COMPLAINT: RUQ PAIN OB: JUDE HISTORY OF PRESENT ILLNESS: 39 yo F 1who will be 18 weeks Wednesday p/w R upper abd pain, intermittent x1 week, then more constant in the last day bringinh her to the ED for further evaluation. Pain was associated with nausea, no vomiting, no fevers or chills. Has had a normal pregnany mostly until now -- just noted to have slightly elevated liver enzymes and is seeing a specialist in march for the abnormal lft. States never had this pain before. Denies changes in bowel habits. Denies urinary complaints. No vaginal itching, pain or discharge. Denies h/o kidney stones. ER course was notable for: (1) Pos UA (2) RUQ pain (3) abd sono pos for mild right hydronephrosis Recent Travel: Denies PAST MEDICAL HISTORY: denies PAST SURGICAL HISTORY: hernia x 2, right salpingectomy Social History: Smoking: former smoker,quit when found out Alcohol: occasional Drugs: denies Allergies No Known Allergies Allergy (Verified 03/02/20 08:21) HOME MEDICATIONS: REVIEW OF SYSTEMS CONSTITUTIONAL: Absent: fever, chills, diaphoresis, generalized weakness, malaise, loss of appetite, weight change HEENT: Absent: rhinorrhea, nasal congestion, throat pain, throat swelling, difficulty swallowing, mouth swelling, ear pain, eye pain, visual changes CARDIOVASCULAR: Absent: chest pain, syncope, palpitations, irregular heart rate, lightheadedness, peripheral edema RESPIRATORY: Absent: cough, shortness of breath, dyspnea with exertion, orthopnea, wheezing, stridor, hemoptysis GASTROINTESTINAL: POS RUQ abdominal pain, NO abdominal distension, POS nausea NO vomiting, diarrhea, constipation, melena, hematochezia GENITOURINARY: Absent: dysuria, frequency, urgency, hesitancy, hematuria, flank pain, genital pain POS FOUL SMELLING URINE MUSCULOSKELETAL: Absent: myalgia, arthralgia, joint swelling, back pain, neck pain SKIN: Absent: rash, itching, pallor HEMATOLOGIC/IMMUNOLOGIC: Absent: easy bleeding, easy bruising, lymphadenopathy, frequent infections ENDOCRINE: Absent: unexplained weight gain, unexplained weight loss, heat intolerance, cold intolerance NEUROLOGIC: Absent: headache, focal weakness or paresthesias, dizziness, unsteady gait, seizure, mental status changes, bladder or bowel incontinence PSYCHIATRIC: Absent: anxiety, depression, suicidal or homicidal ideation, hallucinations. PHYSICAL EXAMINATION Vital Signs - 24 hr 03/02/20 03/02/20 03/02/20 08:22 12:54 14:06 Temperature 98.6 F 98.3 F 99.2 F Pulse Rate 90 Pulse Rate [ 78 81 Left Radial] Respiratory 18 18 20 Rate Blood Pressure 116/73 Blood Pressure 105/53 L 105/72 [Right Arm] O2 Sat by Pulse 100 99 99 Oximetry (%) GENERAL: Awake, alert, and fully oriented, in no acute distress. HEAD: Normal with no signs of trauma. EYES: extraocular movements intact, sclera anicteric, conjunctiva clear. No lid lag. EARS, NOSE, THROAT: Ears normal, nares patent, oropharynx clear without exudates. Moist mucous membranes. NECK: Normal range of motion, supple without lymphadenopathy, JVD, or masses. LUNGS: Breath sounds equal, clear to auscultation bilaterally. No wheezes, and no crackles. No accessory muscle use. HEART: Regular rate and rhythm, normal S1 and S2 without murmur, rub or gallop. ABDOMEN: Soft, nontender, not distended, normoactive bowel sounds, no guarding, no rebound, no masses. No hepatomegaly or splenomegaly. NO CVA TENDERNESS POS GRAVID UTERUS MUSCULOSKELETAL: Normal range of motion at all joints. No bony deformities or tenderness. No CVA tenderness. POS ANTERIOR RIGHT LOWER RIB TENDERNESS TO PALPATION UPPER EXTREMITIES: 2+ pulses, warm, well-perfused. No cyanosis. No clubbing. No peripheral edema. LOWER EXTREMITIES: 2+ pulses, warm, well-perfused. No calf tenderness. No peripheral edema. NEUROLOGICAL: Cranial nerves II-XII intact. Normal speech. Normal gait. PSYCHIATRIC: Cooperative. Good eye contact. Appropriate mood and affect. SKIN: Warm, dry, normal turgor, no rashes or lesions noted, normal capillary refill. Laboratory Results - last 24 hr 03/02/20 03/02/20 03/02/20 09:35 09:35 09:35 WBC 9.2 RBC 3.48 L Hgb 11.2 Hct 32.3 L MCV 92.7 MCH 32.2 MCHC 34.8 RDW 12.8 Plt Count 191 MPV 8.5 Absolute Neuts (auto) 7.4 Neutrophils % 80.1 Lymphocytes % 10.6 Monocytes % 5.6 Eosinophils % 3.2 Basophils % 0.5 Nucleated RBC % 0 PT with INR 12.00 INR 0.99 Sodium Potassium Chloride Carbon Dioxide Anion Gap BUN Creatinine Est GFR (CKD-EPI)AfAm Est GFR (CKD-EPI)NonAf Random Glucose Calcium Total Bilirubin AST ALT Alkaline Phosphatase Total Protein Albumin Lipase Urine Color Yellow Urine Appearance Cloudy Urine pH 6.5 Ur Specific [place] 1.021 Urine Protein Negative Urine Glucose (UA) Negative Urine Ketones Negative Urine Blood Trace Urine Nitrite Negative Urine Bilirubin Negative Urine Urobilinogen 0.2 Ur Leukocyte Esterase 2+ H Urine WBC (Auto) 396 Urine RBC (Auto) 18 Urine Casts (Auto) 15 U Pathogenic Cast Auto No seen U Epithel Cells (Auto) >36 Urine Bacteria (Auto) >9,000 Urine Yeast (Auto) Few 03/02/20 03/02/20 09:35 11:40 WBC RBC Hgb Hct MCV MCH MCHC RDW Plt Count MPV Absolute Neuts (auto) Neutrophils % Lymphocytes % Monocytes % Eosinophils % Basophils % Nucleated RBC % PT with INR INR Sodium 138 Potassium 3.7 Chloride 105 Carbon Dioxide 27 Anion Gap 6 L BUN 11.4 Creatinine 0.6 Est GFR (CKD-EPI)AfAm 131.22 Est GFR (CKD-EPI)NonAf 113.22 Random Glucose 98 Calcium 8.3 L Total Bilirubin 0.2 AST 34 ALT 85 H Alkaline Phosphatase 55 Total Protein 6.3 L Albumin 2.9 L Lipase 153 Urine Color Yellow Urine Appearance Clear Urine pH 7.0 Ur Specific [place] 1.002 L Urine Protein Negative Urine Glucose (UA) Negative Urine Ketones Negative Urine Blood Trace Urine Nitrite Negative Urine Bilirubin Negative Urine Urobilinogen 0.2 Ur Leukocyte Esterase 2+ H Urine WBC (Auto) 40.3 Urine RBC (Auto) 2.6 Urine Casts (Auto) 0.6 U Pathogenic Cast Auto U Epithel Cells (Auto) 28.3 Urine Bacteria (Auto) 461.5 Urine Yeast (Auto) ASSESSMENT/PLAN: 39 Y/O FEMALE AT 18 WEEKS GESTATION ADMITTED WITH RUQ ABD PAIN, POS UTI *ABDOMINAL PAIN -- ABD SONO -- GB APPEARS STABLE ?PASSED STONE, HAS MILD RIGHT HYDRO TYLENOL FOR PAIN NON OBSTRUCTING CALCULI ON SONO HYDRATE WITH FLUIDS UROLOGY EVAL OB SONO STABLE OB EVAL WELL *ELEVATED ALT - MONITOR TO SEE SPECIALIST OUTPT, NOT NEW *UTI - FROM STONE? WILL TREAT WITH ROCEPHIN UROLOGY EVAL *DVT PROPHY - AMBULATE Family Medical History Family History: As Documented Family Hx Coronary Artery Disease: Father Family Hx Nuerologic Problems: Father (FATHER HX OF CVA) Problem List - Problem (1) Kidney stone complicating Code(s): O26.839 - RELATED RENAL DISEASE, UNSPECIFIED TRIMESTER; N20.0 - CALCULUS OF KIDNEY Qualifiers: Trimester: second trimester Qualified Code(s): O26.832 - related renal disease, second trimester; N20.0 - Calculus of kidney Visit type - Emergency Visit Emergency Visit: Yes ED Registration Date: 03/02/20 Care time: The patient presented to the Emergency Department on the above date and was hospitalized for further evaluation of their emergent condition. - New Patient This patient is new to me today: Yes Date on this admission: 03/02/20 - Critical Care Critical Care patient: No
[2020-03-02] MEDS ORDERED: ACETAMINOPHEN 325 MG TABLET (FP) PO PRN (16:35)
[2020-03-02] MEDS ORDERED: SODIUM CHLORIDE 1,000 ML IV SCH (16:45)
[2020-03-02 18:02] VITALS: BMI 26.0
--- NOTE | 2020-03-02 18:17 | CON.OBG ---
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 she has only 2 visits in the clinic pt c/o RUQ pain under ribs for past1 week,on & off, pain is more intense since last night, accompanied with nausea no c/o indigestion, gastritis or gaseous discomfort. no vomiting .H/o constipation , normal BM habit once in 3 days sometimes. h/o Recurrent UTI in past 18 months, last episode ? in january h/o mildly elevated liver enz seen in ER at [facility], confirmed in the clinic , she has appt with Hepatic provider on 03/19/20 No h/o hepatitis or no h/o gall stones c/o burning urination & dysuria , no urgency . Frequent urination thinks due to increase water intake . As per pt course so far normal, she is not sure about FM, may be pres ent . no cramps , no bleeding or leaking . 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 No: Seizure Cardio/Vascular: No: HTN, Mitral Stenosis, Murmur Gastrointestinal: Yes: Constipation. No: Gastritis, GERD Hepatobiliary: No: Cholelithiasis, Hepatitis B Renal/: Yes: Renal Calculi (rt kidney diagnosed today 03/02/20), UTI (recurrent uti). No: Hematuria ...LMP: 10/31/19 ...: Yes ...: 8 (G1,G2 G3 INd AB G4 2018 spab , G5 Rupture Ectopic pregn ) ...Para: 2 (G6 03/22/03 40 wks. G7 5/29/20 , 40 wks both at [facility] ) Heme/Onc: Yes: Other (h/o Blood transfusion during rupture ectopicregn in 2018) Infectious Disease: No: AIDS, C-Diff, Herpes Zoster, HIV, MRSA, STD's, Tuberculosis, VREF Psych: No: Addictions, Anxiety, Bipolar, Depression, Panic, Psychosis, Schizophrenia, Other Musculoskeletal: No: Bursitis, Chronic low back pain, Hemiparesis, Hemiplegia, Osteoarthritis, Paraplegia, Other Rheumatology: No: Fibromyalgia, Gout, Lupus, Rheumatoid Arthritis, Sarcoidosis, Vasculitis, Other ENT: No: Allergic Rhinitis, Sinusitis, Other Endocrine: No: [place]'s Disease, [place]'s Disease, Diabetes Insipidus, D iabetes Mellitus, Hyperparathyroidism, Hyperthyroidism, Hypothyroidism, Osteopenia, SIADH, Other Dermatology: Yes: Other (genralized itcing of body ) - Past Surgical History Additional Surgical History: 05/14/2018 Laproscopic Rt salpingectomy for rupture ectopic pregn , h/o PCT - Alcohol/Substance Use Hx Alcohol Use: No History of Substance Use: reports: None - Smoking History Smoking history: Never smoked Have you smoked in the past 12 months: Yes Aproximately how many cigarettes per day: 10 If you are a former smoker, when did you quit?: 2 weeks - Social History History of Recent Travel: No Home Medications - Allergies Allergies/Adverse Reactions: Allergies Allergy/AdvReac Type Severity Reaction Status Date / Time No Known Allergies Allergy Verified 03/02/20 08:21 - Home Medications Home Medications: Ambulatory Orders Vitamins (Sjr) - 1 tab PO DAILY 03/02/20 Family Medical History Family Hx Coronary Artery Disease: Father Family Hx Nuerologic Problems: Father (FATHER HX OF CVA) Review of Systems - Review of Systems Constitutional: denies: Fever, Weakness Eyes: reports: No Symptoms HENT: reports: No Symptoms Neck: reports: No Symptoms Cardiovascular: reports: No Symptoms Respiratory: reports: No Symptoms Gastrointestinal: reports: Abdominal Pain (RUQ pain current scale5/10 , before coming to ER 8/10), Nausea Genitourinary: reports: Burning, Discharge (vaginal discharge with itching), Dysuria. 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 No: Tenderness, Epigastrium, Tenderness, Rebound, Vomiting ...Rectal Exam: Yes: Deferred Renal/: Yes: . No: CVA Tenderness - Left, CVA Tenderness - Right, Vaginal Bleeding External Genitalia: Yes: Normal Internal Exam Deferred: Yes Vaginal Exam: Yes: Discharge (yeast infection) Cervix: Yes: Normal (cx close unefface) Uterus: Yes: Other (, fundal height 22cm , FPF , FHS 151 bpm) Breast(s): Yes: WNL. No: Mass Musculoskeletal: Yes: WNL Extremities: No: Calf Tenderness Edema: No Integumentary: Yes: Tattoos Neurological: Yes: WNL, Alert, Oriented ...Motor Strength: WNL Psychiatric: Yes: WNL, Alert, Oriented Labs: CBC, BMP 03/02/20 09:35 03/02/20 09:35 Laboratory Tests 03/02/20 03/02/20 09:35 09:35 AST 34 ALT 85 H Urine Appearance Cloudy Urine Ketones Negative Urine Urobilinogen 0.2 Urine RBC (Auto) 18 Urine Casts (Auto) 15 Urine Yeast (Auto) Few Problem List - Problems (1) with 18 completed weeks gestation Code(s): Z3A.18 - 18 WEEKS GESTATION OF (2) Kidney stone complicating Code(s): O26.839 - RELATED RENAL DISEASE, UNSPECIFIED TRIMESTER; N20.0 - CALCULUS OF KIDNEY Qualifiers: Trimester: second trimester Qualified Code(s): O26.832 - related renal disease, second trimester; N20.0 - Calculus of kidney (3) AMA (advanced maternal age) multigravida 35+ Code(s): O09.529 - SUPERVISION OF ELDERLY MULTIGRAVIDA, UNSPECIFIED TRIMESTER (4) with abdominal pain of right upper quadrant, antepartum Code(s): O26.899 - OTH RELATED CONDITIONS, UNSPECIFIED TRIMESTER; R10.11 - RIGHT UPPER QUADRANT PAIN Assessment/Plan 39 yrs (AMA) , 18.1 weeks admitted for RUQ pain diagnosed non obstructing calculus 5mm in the center of Rt kidney with Rt hydronephrosis . 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 , x 4.9 cm , monilial vilvovaginitis .. recurrent UTI rx iv Rocephine urology consult wit Dr Landrum requested
--- NOTE | 2020-03-02 18:36 | EKG ---
Test Reason : Blood Pressure : / mmHG Vent. Rate : 067 BPM Atrial Rate : 067 BPM P-R Int : 118 ms QRS Dur : 092 ms QT Int : 420 ms P-R-T Axes : 026 015 031 degrees QTc Int : 443 ms NORMAL SINUS RHYTHM WITH SINUS ARRHYTHMIA INCOMPLETE RIGHT BUNDLE BRANCH BLOCK BORDERLINE ECG NO PREVIOUS ECGS AVAILABLE Confirmed by MD WILDA, HERVE ([id number]) on 03/02/2020 6:35:35 PM Referred By: Confirmed By:HERVE ASTUDILLO MD
[2020-03-02] MEDS ORDERED: FLU VACCINE (FLULAVAL) PF 60 MCG/0.5 ML SYRINGE 2020-2021 IM ONE (20:00)
[2020-03-02] MEDS: MICONAZOLE NITRATE 2% VAGINAL CREAM 45 GM TUBE VG SCH (21:55)
[2020-03-03 09:30] LABS: HEMATOCRIT 30.6 % (32.4-45.2); HEMOGLOBIN 10.6 GM/dL (10.7-15.3); MCH 32.4 pg (25.7-33.7); MCHC 34.7 g/dl (32.0-36.0); MEAN CELL VOLUME 93.3 fl (80-96); MEAN PLT VOLUME 8.9 fl (7.5-11.1); PLATELET COUNT 176 K/MM3 (134-434); RBC 3.27 M/mm3 (3.60-5.2); WHITE BLOOD COUNT 8.9 K/mm3 (4.0-10.0)
[2020-03-03 09:40] LABS: POTASSIUM 4.1 mmol/L (3.5-5.1)
[2020-03-03] MEDS ORDERED: PT OWN MED DRAWER 7, Y5N ONE (09:48)
[2020-03-03] MEDS ORDERED: cefTRIAXone SODIUM 1 GM VIAL ONE (09:49)
[2020-03-03] MEDS ORDERED: DEXTROSE 5%-WATER - 50 ML IVPB ONE (09:49)
[2020-03-03] MEDS: PRENATAL VITAMINS W/ FOLIC ACID TABLET (FP) PO SCH (09:56)
[2020-03-03] MEDS: CEFTRIAXONE 1 GM in DEXTROSE 5%-WATER - 50 ML IVPB SCH (09:56)
[2020-03-03 09:57] LABS: ALBUMIN 2.6 g/dl (3.4-5.0)
[2020-03-03 10:00] LABS: CREATININE 0.6 mg/dL (0.55-1.3)
[2020-03-03 10:01] LABS: BILIRUBIN,TOTAL 0.4 mg/dL (0.2-1)
[2020-03-03 10:02] LABS: TOT PROT 5.8 g/dl (6.4-8.2)
--- NOTE | 2020-03-03 10:47 | CON.GU ---
Consult Consult Specialty:: Reason for Consultation:: R hydronephrosis - History of Present Illness Chief Complaint: abd pain History of Present Illness: 39 yo F 1who will be 18 weeks Wednesday p/w R upper abd pain, intermittent x1 week, then more constant in the last day bringing her to the ED for further evaluation. Pain was associated with nausea, no vomiting, no fevers or chills. Has had a normal mostly until now -- just noted to have slightly elevated liver enzymes and is seeing a specialist in March for the abnormal lft. States never had this pain before. Denies changes in bowel habits. Denies urinary complaints. No vaginal itching, pain or discharge. Denies h/o kidney stones. cons req. ER course was notable for: (1) Pos UA (2) RUQ pain (3) abd sono pos for mild right hydronephrosis - History Source History Provided By: Patient, Medical Record - Past Medical History RN ONCOLOGY CLINICAL: Yes: Migraine. No: Seizure Cardio/Vascular: No: HTN, Mitral Stenosis, Murmur Gastrointestinal: Yes: Constipation. No: Gastritis, GERD Hepatobiliary: No: Cholelithiasis, Hepatitis B Renal/: Yes: Renal Calculi (rt kidney diagnosed today 03/02/20), UTI (recurrent uti). No: Hematuria ...LMP: 10/31/19 ...: Yes Infectious Disease: No: AIDS, C-Diff, Herpes Zoster, HIV, MRSA, STD's, Tuberculosis, VREF Psych: No: Addictions, Anxiety, Bipolar, Depression, Panic, Psychosis, Schizophrenia, Other Musculoskeletal: No: Bursitis, Chronic low back pain, Hemiparesis, Hemiplegia, Osteoarthritis, Paraplegia, Other Rheumatology: No: Fibromyalgia, Gout, Lupus, Rheumatoid Arthritis, Sarcoidosis, Vasculitis, Other ENT: No: Allergic Rhinitis, Sinusitis, Other Endocrine: No: [place]'s Disease, [place]'s Disease, Diabetes Insipidus, Di abetes Mellitus, Hyperparathyroidism, Hyperthyroidism, Hypothyroidism, Osteopenia, SIADH, Other Dermatology: Yes: Other (genralized itcing of body ) - Past Surgical History Additional Surgical History: 05/14/2018 Laproscopic Rt salpingectomy for rupture ectopic pregn , h/o PCT - Alcohol/Substance Use Hx Alcohol Use: No History of Substance Use: reports: None - Smoking History Smoking history: Never smoked Have you smoked in the past 12 months: Yes Aproximately how many cigarettes per day: 10 If you are a former smoker, when did you quit?: 2 weeks - Social History History of Recent Travel: No Home Medications - Allergies Allergies/Adverse Reactions: Allergies Allergy/AdvReac Type Severity Reaction Status Date / Time No Known Allergies Allergy Verified 03/02/20 08:21 - Home Medications Home Medications: Ambulatory Orders Vitamins (Sjr) - 1 tab PO DAILY 03/02/20 Family Medical History Family Hx Coronary Artery Disease: Father Family Hx Nuerologic Problems: Father (FATHER HX OF CVA) Review of Systems - Review of Systems Constitutional: denies: Chills, Fever Gastrointestinal: reports: Nausea. denies: Vomiting Genitourinary: reports: Flank Pain. denies: Hematuria Physical Exam- Vital Signs: Vital Signs Temperature 98.9 F 03/03/20 07:08 Pulse Rate 74 03/03/20 07:08 Respiratory Rate 20 03/03/20 07:08 Blood Pressure 110/59 L 03/03/20 07:08 O2 Sat by Pulse Oximetry (%) 98 03/03/20 07:08 Constitutional: Yes: Well Nourished, No Distress, Calm Gastrointestinal: Yes: WNL, Normal Bowel Sounds, Soft Renal/: Yes: CVA Tenderness - Right. No: Bladder Distention, Hematuria Kidneys: Yes: FLank Pain Right Labs: CBC, BMP 03/03/20 08:52 03/03/20 08:52 Imaging - Results Ultrasound: Report Reviewed Problem List - Problems (1) Hydronephrosis Assessment/Plan: consider cysto and R JJ stent insertion if pain not controlled w tylenol or if febrile Code(s): N13.30 - UNSPECIFIED HYDRONEPHROSIS (2) Kidney stone complicating Assessment/Plan: ESWL R after delivery Code(s): O26.839 - RELATED RENAL DISEASE, UNSPECIFIED TRIMESTER; N20.0 - CALCULUS OF KIDNEY Qualifiers: Trimester: second trimester Qualified Code(s): O26.832 - related renal disease, second trimester; N20.0 - Calculus of kidney (3) with 18 completed weeks gestation Code(s): Z3A.18 - 18 WEEKS GESTATION OF (4) Urinary tract infection Assessment/Plan: UCx, iv abxs, ivfs Code(s): N39.0 - URINARY TRACT INFECTION, SITE NOT SPECIFIED
[2020-03-03] MEDS ORDERED: SODIUM CHLORIDE 1,000 ML IV SCH (13:15)
--- NOTE | 2020-03-03 13:15 | PN ---
Progress Note (short form) - Note Progress Note: Seen and examined at bedside. Patient is very nauseous and in pain following dialysis. Zofran ordered. Noted to have open wound on right lower abdomen not seen on previous hospitalization which appears to go down to the subcutaneous tissue. OBJECTIVE Last Vital Signs Temp Pulse Resp BP Pulse Ox 98.4 F 81 20 105/56 L 98 03/03/20 10:00 03/03/20 10:00 03/03/20 10:00 03/03/20 10:00 03/03/20 10:00 PE: GEN: NAD HEENT: NC/AT PEARLL RESP: CTAB CARDS: RRR, -MRG ABD: soft, nt/nd +BS EXT: No swelling/Edema Neuro: Non-focal, A&OX3 Labs/Imaging: reviewed ASSESSMENT/PLAN 37-year-old woman with history of autosomal dominant polycystic kidney disease, ESRD on dialysis, cervical cancer, completed chemo, now on radiotherapy, IDDM, multiple admissions to this hospital in the last 2 months, presented due to bleeding from her port site #Bleeding from Chemo-Port site Status post port exchange by vascular surgery 1 unit of platelets given #Nausea Patient has had multiple episodes of nausea following dialysis As needed Zofran #Abdominal skin ulcer Not seen on previous admission. Patient denies trauma to the area. Possibly reaction to a medication injection? If increases in size will get surgical consult #ESRD Nephrology on board: Appreciate recommendations #DM -on 50 lantus BID, Lispro 30 TID at home -start with 10 levemir BID, lispro 5 TID -Sliding scale #Anemia -transfuse to goal >7 Visit type - Emergency Visit Emergency Visit: Yes ED Registration Date: 03/02/20 Care time: The patient presented to the Emergency Department on the above date and was hospitalized for further evaluation of their emergent condition. - New Patient This patient is new to me today: Yes Date on this admission: 03/03/20 - Critical Care Critical Care patient: No
--- NOTE | 2020-03-03 13:22 | PN ---
Progress Note (short form) - Note Progress Note: SUBJECTIVE: Seen and examined at bedside. Patient reports abdominal pain is now more in the right upper quadrant. Has mild right flank tenderness. Denies nausea or vomiting. Seen by urology and gynecology. Will repeat abdominal ultrasound and evaluate the liver and gallbladder as well as recheck the kidney for resolution of hydronephrosis. OBJECTIVE Last Vital Signs Temp Pulse Resp BP Pulse Ox 98.4 F 81 20 105/56 L 98 03/03/20 10:00 03/03/20 10:00 03/03/20 10:00 03/03/20 10:00 03/03/20 10:00 PE: Per resident note Labs/Imaging: reviewed ASSESSMENT/PLAN 39-year-old female 18 weeks presents with right upper abdominal pain and flank pain, found to have kidney stone with hydronephrosis. #Kidney stone Repeat ultrasound Urology on board: Appreciate recommendations Per urology if pain not controlled with Tylenol or if fever a stent may be placed Continue fluids #Right upper quadrant pain with elevated LFTs unremarkable US of liver and GB LFT elevation is not new, patient has hepatic follow-up on 03/19/2020 -monitor #Dispo: monitor overnight. If pain not resolved will discuss with Visit type - Emergency Visit Emergency Visit: Yes ED Registration Date: 03/02/20 Care time: The patient presented to the Emergency Department on the above date and was hospitalized for further evaluation of their emergent condition. - New Patient This patient is new to me today: Yes Date on this admission: 03/03/20 - Critical Care Critical Care patient: No
[2020-03-03] MEDS: MICONAZOLE NITRATE 2% VAGINAL CREAM 45 GM TUBE VG SCH (21:46)
[2020-03-04 06:41] VITALS: BP 94/55; PULSE 76; TEMP 98.6
[2020-03-04 08:02] LABS: BASO % 0.6 % (0-2.0); EOS % 4.7 % (0-4.5); HEMATOCRIT 30.7 % (32.4-45.2); HEMOGLOBIN 10.4 GM/dL (10.7-15.3); MCHC 33.9 g/dl (32.0-36.0); MEAN CELL VOLUME 94.4 fl (80-96); MEAN PLT VOLUME 9.1 fl (7.5-11.1); MONO % 7.8 % (3.8-10.2); NEUT % 71.9 % (42.8-82.8); PLATELET COUNT 179 K/MM3 (134-434); RBC 3.25 M/mm3 (3.60-5.2); RDW 13.2 % (11.6-15.6); WHITE BLOOD COUNT 9.4 K/mm3 (4.0-10.0)
--- NOTE | 2020-03-04 08:06 | PN ---
Progress Note (short form) - Note Progress Note: OB follow up. pt does not c/o abd pain like before admission no vomiting. she does not know if she passed stone no burning urination or vaginal burning . fm felt f Selected Entries 03/04/20 06:00 Temperature 98.6 F Pulse Rate 76 Blood Pressure 94/55 L Laboratory Tests 03/02/20 09:35 Urine Bilirubin Negative Ur Leukocyte Esterase 2+ H Urine Casts (Auto) 15 U Epithel Cells (Auto) >36 PA 22 wks size ut fpf , fhe 148 bpm no cva tenderness or uterine tenderness Laboratory Tests 03/03/20 03/03/20 08:52 08:52 WBC 8.9 RBC 3.27 L Hgb 10.6 L Hct 30.6 L MCV 93.3 MCH 32.4 MCHC 34.7 RDW 13.0 Plt Count 176 MPV 8.9 Sodium 139 Potassium 4.1 Chloride 108 H Carbon Dioxide 25 Anion Gap 6 L BUN 12.0 Creatinine 0.6 Est GFR (CKD-EPI)AfAm 131.22 Est GFR (CKD-EPI)NonAf 113.22 Random Glucose 119 H Calcium 8.0 L Total Bilirubin 0.4 AST 31 ALT 74 H Alkaline Phosphatase 42 L Total Protein 5.8 L Albumin 2.6 L imp : 18 wks as per us with post fibroid pregn, , rt nephrolithiasis , mildly elevatd ALT persistent, aetiology unknown plan she should keep her appt when discharge continue po vit & iron Problem List - Problems (1) with 18 completed weeks gestation Code(s): Z3A.18 - 18 WEEKS GESTATION OF (2) Kidney stone complicating Code(s): O26.839 - RELATED RENAL DISEASE, UNSPECIFIED TRIMESTER; N20.0 - CALCULUS OF KIDNEY Qualifiers: Trimester: second trimester Qualified Code(s): O26.832 - related renal disease, second trimester; N20.0 - Calculus of kidney (3) AMA (advanced maternal age) multigravida 35+ Code(s): O09.529 - SUPERVISION OF ELDERLY MULTIGRAVIDA, UNSPECIFIED TRIMESTER (4) with abdominal pain of right upper quadrant, antepartum Code(s): O26.899 - OTH RELATED CONDITIONS, UNSPECIFIED TRIMESTER; R10.11 - RIGHT UPPER QUADRANT PAIN
[2020-03-04 08:22] LABS: POTASSIUM 4.5 mmol/L (3.5-5.1)
[2020-03-04 08:30] LABS: ALBUMIN 2.5 g/dl (3.4-5.0)
[2020-03-04 08:31] LABS: BLOOD UREA NITROGEN 11.8 mg/dL (7-18)
[2020-03-04 08:33] LABS: CREATININE 0.5 mg/dL (0.55-1.3)
[2020-03-04 08:35] LABS: BILIRUBIN,TOTAL 0.2 mg/dL (0.2-1); TOT PROT 5.5 g/dl (6.4-8.2)
[2020-03-04] MEDS ORDERED: DEXTROSE 5%-WATER - 50 ML IVPB ONE (10:04)
[2020-03-04] MEDS ORDERED: cefTRIAXone SODIUM 1 GM VIAL ONE (10:04)
[2020-03-04] MEDS: CEFTRIAXONE 1 GM in DEXTROSE 5%-WATER - 50 ML IVPB SCH (10:13)
[2020-03-04] MEDS ORDERED: PT OWN MED DRAWER 7, Y5N ONE (10:20)
[2020-03-04] MEDS: PRENATAL VITAMINS W/ FOLIC ACID TABLET (FP) PO SCH (10:22)
--- NOTE | 2020-03-04 19:25 | DS ---
Physical Exam: SUBJECTIVE: Patient seen and examined at bedside this AM. Afebrile overnight. Endorses pain in RUQ is better. OBJECTIVE: Vital Signs Period Temp Pulse Resp BP Sys/Torres Pulse Ox Last 24 Hr 98.6 F-98.9 F 76-86 17-18 94-113/55-62 97-98 PHYSICAL EXAM GENERAL: NAD AAOx3 HEAD: Normal with no signs of trauma. EYES: EOMI Sclera Clear ENT: MMM NECK: Trachea midline, full range of motion, supple. LUNGS: CTAB No wheezing/rales/rhonchi HEART: Regular rate and rhythm, S1, S2 without murmur, rub or gallop. ABDOMEN: Soft, NDNT BACK: No CVA tenderness appreciated EXTREMITIES: No CCE NEUROLOGICAL: Cranial nerves II through XII grossly intact. PSYCH: Normal mood, normal affect. SKIN: Warm, dry. LABS Laboratory Results - last 24 hr 03/04/20 03/04/20 06:35 06:35 WBC 9.4 RBC 3.25 L Hgb 10.4 L Hct 30.7 L MCV 94.4 MCH 32.0 MCHC 33.9 RDW 13.2 Plt Count 179 MPV 9.1 Absolute Neuts (auto) 6.7 Neutrophils % 71.9 Lymphocytes % 15.0 D Monocytes % 7.8 Eosinophils % 4.7 H Basophils % 0.6 Nucleated RBC % 0 Sodium 139 Potassium 4.5 Chloride 109 H Carbon Dioxide 24 Anion Gap 6 L BUN 11.8 Creatinine 0.5 L Est GFR (CKD-EPI)AfAm 139.33 Est GFR (CKD-EPI)NonAf 120.22 Random Glucose 65 L Calcium 8.0 L Total Bilirubin 0.2 AST 29 ALT 64 H Alkaline Phosphatase 47 Total Protein 5.5 L Albumin 2.5 L HOSPITAL COURSE: Date of Admission:03/02/20 39-year-old female 18 weeks presented with right upper abdominal pain and flank pain, found to have right sided nephrolithiasis with hydronephrosis. Patient was also noted to have a UTI and was treated with Ceftriaxone. Patient did not develop any elevated white blood cell count or fever. Abdominal U/S revealed mild right sided hydronephrosis with non-obstructing calculi. A Distal obstruction could not be determined. Patient could not undergo a CTAP in light of her status. Patient was also noted to have elevated liver enzymes which were previously noted on a prior admission. Patient's pain subsided and patient was given a urology referral and instructed to return to hospital if she developed symptoms. Date of Discharge: 03/04/20 Minutes to complete discharge: 35 Discharge Summary Problems reviewed: Yes Reason For Visit: UTI IN MOTHER DURING PREG/CALCULUS OF KIDNEY Condition: Improved - Instructions Diet, Activity, Other Instructions: You presented to the hospital due to right sided abdominal pain. You were found to have a kidney stone as well as a water around your kidney. You were evaluated by a Urologist. No surgical intervention is required at this time. You have been treated with intravenous antibiotics as well for a urinary tract infection. You were also noted to have elevated liver enzymes. You have an appointment on 03/19 with your liver specialist. Please follow up with your FLY MAKER for your . A referral to the Urologist has been provided for you in your discharge papers. Please return to the emergency department immediately if you begin to experience worsening abdominal or back pain, nausea/vomiting, fever, chills, or any other abnormal symptoms Referrals: Master Landrum MD [Staff Physician] - Veena Garcia MD [Staff Physician] - 1 Week Disposition: HOME - Home Medications Comprehensive Discharge Medication List: Ambulatory Orders Vitamins (Sjr) - 1 tab PO DAILY 03/02/20 This patient is new to me today: No Emergency Visit: Yes ED Registration Date: 03/02/20 Care time: The patient presented to the Emergency Department on the above date and was hospitalized for further evaluation of their emergent condition. Critical Care patient: No - Discharge Referral Referred to [facility] No ATTENDING PHYSICIAN STATEMENT I saw and evaluated the patient. I reviewed the resident's note and discussed the case with the resident. I agree with the resident's findings and plan as documented. SUBJECTIVE: OBJECTIVE: ASSESSMENT AND PLAN:
== END 2020-03-04 14:44 | disposition home or self-care (01) | DRG 566 ==
LOC: JER 08:20 → JERBED 13:11 → J8W 15:53
PROVIDERS: ADMIT Internal Medicine; ATTEND Internal Medicine
DX: O23.02 Infections of kidney in pregnancy, second trimester (principal); N13.6 Pyonephrosis; O09.522 Supervision of elderly multigravida, second trimester; O99.891 Other specified diseases and conditions complicating pregnancy; I45.19 Other right bundle-branch block; R10.11 Right upper quadrant pain; K59.09 Other constipation; Z3A.18 18 weeks gestation of pregnancy
CPT/HCPCS: 36415; 76705-TC; 76775-TC; 76815-TC; 80053; 81003; 83690; 85025; 85027; 85610; 87077; 87086; 93005; 93010; 99285-25; C9803; U0003

== ENCOUNTER 2020-04-10 11:17 | Emergency (ER) | payer OTHER ==
[2020-04-10 11:22] VITALS: BMI 28.3
[2020-04-10 12:58] LABS: BASO % 0.5 % (0-2.0); EOS % 2.3 % (0-4.5); HEMATOCRIT 33.4 % (32.4-45.2); HEMOGLOBIN 10.9 GM/dL (10.7-15.3); LYMPH % 11.4 % (8-40); MCH 30.8 pg (25.7-33.7); MCHC 32.5 g/dl (32.0-36.0); MEAN CELL VOLUME 94.5 fl (80-96); MEAN PLT VOLUME 8.7 fl (7.5-11.1); MONO % 6.9 % (3.8-10.2); NEUT % 78.9 % (42.8-82.8); PLATELET COUNT 207 K/MM3 (134-434); RBC 3.53 M/mm3 (3.60-5.2); RDW 13.4 % (11.6-15.6)
[2020-04-10 13:14] LABS: ALBUMIN 2.9 g/dl (3.4-5.0); BLOOD UREA NITROGEN 9.7 mg/dL (7-18); CALCIUM 8.6 mg/dL (8.5-10.1)
[2020-04-10 13:17] LABS: CREATININE 0.5 mg/dL (0.55-1.3)
[2020-04-10 13:19] LABS: BILIRUBIN,TOTAL 0.2 mg/dL (0.2-1); TOT PROT 6.6 g/dl (6.4-8.2)
[2020-04-10 13:46] LABS: POTASSIUM 4.2 mmol/L (3.5-5.1)
[2020-04-10 13:50] LABS: EPI CELLS 36 /uL (0-25.1); HYALINE CASTS 4 /uL (0-3.1); URINE APPEARANCE CLEAR; URINE BACTERIA 1302 /uL (0-1359); URINE BILIRUBIN NEGATIVE (NEGATIVE); URINE COLOR YELLOW; URINE GLUCOSE (UA) NEGATIVE (NEGATIVE); URINE KETONE NEGATIVE (NEGATIVE); URINE LEUK ESTERASE 1+ (NEGATIVE); URINE NITRITE NEGATIVE (NEGATIVE); URINE PROTEIN NEGATIVE (NEGATIVE); URINE RBC 23 /uL (0-23.9); URINE UROBILINOGEN 0.2 mg/dL (0.2-1.0); URINE WBC 28 /uL (0-25.8)
[2020-04-10 15:30] VITALS: BP 113/76; PULSE 82; TEMP 98.1
== END 2020-04-10 15:32 | disposition home or self-care (01) ==
LOC: JER 11:17
DX: R10.11 Right upper quadrant pain (principal)
CPT/HCPCS: 36415; 76705-TC; 80053; 81003; 85025; 87086; 99284-25

== ENCOUNTER 2020-08-01 18:20 | Inpatient (IN) | payer OTHER ==
[2020-08-01 19:19] VITALS: BMI 33.1
[2020-08-01] MEDS ORDERED: AMPICILLIN - 2 GM in SODIUM CHLORIDE 100 ML IVPB ONE (19:36)
[2020-08-01] MEDS ORDERED: ELECTROLYTE-148 SOLN 1,000 ML IV SCH (19:45)
[2020-08-01 20:12] LABS: BASO % 0.2 % (0-2.0); EOS % 1.1 % (0-4.5); HEMATOCRIT 32.9 % (32.4-45.2); HEMOGLOBIN 11.1 GM/dL (10.7-15.3); LYMPH % 9.9 % (8-40); MCH 31.5 pg (25.7-33.7); MCHC 33.9 g/dl (32.0-36.0); MEAN CELL VOLUME 93.1 fl (80-96); MEAN PLT VOLUME 9.5 fl (7.5-11.1); MONO % 7.3 % (3.8-10.2); NEUT % 81.5 % (42.8-82.8); PLATELET COUNT 167 K/MM3 (134-434); RBC 3.53 M/mm3 (3.60-5.2); RDW 13.8 % (11.6-15.6); WHITE BLOOD COUNT 8.1 K/mm3 (4.0-10.0)
[2020-08-01 20:21] LABS: INR 0.97 (0.83-1.09); PROTHROMBIN TIME (PATIENT) 11.8 SEC (9.7-13.0)
[2020-08-01 20:23] LABS: ACTIVATED PTT 24.6 SECONDS (25.2-36.5)
[2020-08-01 20:41] LABS: POTASSIUM 4.2 mmol/L (3.5-5.1)
[2020-08-01 20:43] LABS: CALCIUM 8.2 mg/dL (8.5-10.1)
[2020-08-01 20:44] LABS: BLOOD UREA NITROGEN 15.9 mg/dL (7-18)
[2020-08-01 20:47] LABS: CREATININE 0.7 mg/dL (0.55-1.3)
[2020-08-01] MEDS ORDERED: FENTANYL/BUPIVACAINE/NS/PF - PCEA - 50 ML DISP.SYRIN EP ONE (21:21)
[2020-08-01 21:39] LABS: HIV INTERPRETATION NEGATIVE (NEGATIVE)
[2020-08-01] MEDS ORDERED: NALOXONE HCL 0.4 MG/ML VIAL IVPUSH PRN (22:19)
[2020-08-01] MEDS ORDERED: FENTANYL/BUPIVACAINE/NS/PF - PCEA - 50 ML DISP.SYRIN EP SCH (22:30)
[2020-08-01] MEDS ORDERED: CITRIC ACID/SODIUM CITRATE 30 ML UNIT-DOSE CUP PO ONE (22:40)
[2020-08-01] MEDS ORDERED: MIDAZOLAM HCL 2 MG/2 ML SINGLE DOSE VIAL ONE (22:46)
[2020-08-01] MEDS ORDERED: ONDANSETRON 4 MG/2 ML VIAL ONE (22:51)
[2020-08-01] MEDS ORDERED: KETOROLAC TROMETHAMINE 30 MG/1 ML VIAL ONE (22:51)
[2020-08-01] MEDS ORDERED: DEXAMETHASONE SOD PHOSPHATE 4 MG/1 ML VIAL ONE (22:51)
[2020-08-01] MEDS ORDERED: OXYTOCIN 10 UNITS/ML VIAL ONE ×3 (22:55→23:22)
[2020-08-01] MEDS ORDERED: CALCIUM CHLORIDE 1 GM/10 ML *DISP.SYRIN ONE (23:28)
[2020-08-02] MEDS ORDERED: OXYTOCIN 20 UNITS in 0.9% NS 20 UNIT/1,000 ML INFUS.BAG IV ONE ×2 (00:07→03:23)
[2020-08-02] MEDS ORDERED: ACETAMINOPHEN 325 MG TABLET (FP) PO PRN ×2 (00:10→00:16)
[2020-08-02] MEDS ORDERED: morphine SULFATE/PF 0.5 MG/ML (2cc Syringe - QUVA) EP ONE (00:10)
[2020-08-02] MEDS ORDERED: IBUPROFEN 600 MG TABLET (FP) PO PRN ×2 (00:10→00:15)
[2020-08-02] MEDS ORDERED: oxyCODONE HCL 5 MG TABLET PO PRN ×4 (00:15→14:53)
[2020-08-02] MEDS ORDERED: OXYTOCIN 20 UNITS in 0.9% NS 20 UNIT/1,000 ML INFUS.BAG IV SCH (00:15)
[2020-08-02] MEDS ORDERED: BENZOCAINE 28 GM HEMORRHOIDAL OINTMENT PR PRN ×2 (00:15→14:53)
[2020-08-02] MEDS ORDERED: DEXTROSE 5%-LACTATED RINGERS 1,000 ML IV SCH (00:15)
[2020-08-02] MEDS ORDERED: SIMETHICONE 80 MG TAB.CHEW (FP) PO PRN (00:15)
[2020-08-02] MEDS ORDERED: IBUPROFEN 800 MG/8 ML IJ IVPB PRN ×2 (00:15→14:53)
[2020-08-02] MEDS ORDERED: METHYLERGONOVINE MALEATE 0.2 MG/1 ML AMP IM PRN ×2 (00:15→14:53)
[2020-08-02] MEDS ORDERED: WITCH HAZEL 50% (TUCKS) 40 PAD/JAR PAD TP PRN ×2 (00:15→14:53)
[2020-08-02] MEDS ORDERED: BENZOCAINE 20% 57 GM BOTTLE TP PRN ×2 (00:15→14:53)
[2020-08-02] MEDS ORDERED: diphenhydrAMINE HCL 25 MG CAPSULE (FP) PO PRN ×2 (00:15→14:53)
[2020-08-02 01:23] LABS: CORD HCO3 25.8 mmHg (20-29); CORD HCO3 26.3 mmHg (20-29); CORD PCO2 85.4 mmHg (30-78); CORD PCO2 94.3 mmHg (30-78); CORD pH 7.064 (7.14-7.44); CORD pH 7.098 (7.14-7.44)
[2020-08-02] MEDS: CEFAZOLIN 1 GM/D5W 1 GM/50 ML BAG IVPB SCH ×2 (02:00→09:38)
[2020-08-02] MEDS ORDERED: ceFAZolin SODIUM 1 GM VIAL ONE (02:43)
[2020-08-02 03:25] LABS: BASO % 0.3 % (0-2.0); EOS % 0.1 % (0-4.5); HEMATOCRIT 24.8 % (32.4-45.2); HEMOGLOBIN 8.1 GM/dL (10.7-15.3); LYMPH % 4.2 % (8-40); MCH 30.6 pg (25.7-33.7); MCHC 32.5 g/dl (32.0-36.0); MEAN CELL VOLUME 94.2 fl (80-96); MEAN PLT VOLUME 9.1 fl (7.5-11.1); MONO % 4.2 % (3.8-10.2); NEUT % 91.2 % (42.8-82.8); PLATELET COUNT 152 K/MM3 (134-434); RBC 2.63 M/mm3 (3.60-5.2); RDW 13.8 % (11.6-15.6); WHITE BLOOD COUNT 16.3 K/mm3 (4.0-10.0)
[2020-08-02 04:26] LABS: BASO % 0.3 % (0-2.0); HEMATOCRIT 29.5 % (32.4-45.2); HEMOGLOBIN 9.7 GM/dL (10.7-15.3); LYMPH % 4.2 % (8-40); MCH 30.7 pg (25.7-33.7); MCHC 32.7 g/dl (32.0-36.0); MEAN CELL VOLUME 93.9 fl (80-96); MEAN PLT VOLUME 9.5 fl (7.5-11.1); MONO % 4.5 % (3.8-10.2); PLATELET COUNT 124 K/MM3 (134-434); RBC 3.15 M/mm3 (3.60-5.2); RDW 13.8 % (11.6-15.6); WHITE BLOOD COUNT 16.1 K/mm3 (4.0-10.0)
[2020-08-02 04:36] LABS: INR 1.03 (0.83-1.09); PROTHROMBIN TIME (PATIENT) 12.4 SEC (9.7-13.0)
[2020-08-02 04:52] LABS: POTASSIUM 4.4 mmol/L (3.5-5.1)
[2020-08-02 04:54] LABS: ALBUMIN 1.9 g/dl (3.4-5.0); BLOOD UREA NITROGEN 15.6 mg/dL (7-18); CALCIUM 7.3 mg/dL (8.5-10.1)
[2020-08-02 04:58] LABS: CREATININE 0.7 mg/dL (0.55-1.3)
[2020-08-02 04:59] LABS: BILIRUBIN,TOTAL 0.2 mg/dL (0.2-1); TOT PROT 4.6 g/dl (6.4-8.2)
[2020-08-02 06:24] LABS: ANISOCYTOSIS 3+; MACROCYTOSIS 0; OVALOCYTE 1+; PLATELET ESTIMATE DECREASED
[2020-08-02] MEDS: ONDANSETRON 4 MG/2 ML VIAL IVPUSH PRN ×2 (06:49→11:39)
[2020-08-02 09:36] LABS: BASO % 0.1 % (0-2.0); EOS % 0.1 % (0-4.5); HEMATOCRIT 28.6 % (32.4-45.2); HEMOGLOBIN 9.7 GM/dL (10.7-15.3); MCH 30.9 pg (25.7-33.7); MEAN CELL VOLUME 90.7 fl (80-96); MEAN PLT VOLUME 9.2 fl (7.5-11.1); MONO % 5.9 % (3.8-10.2); NEUT % 89.9 % (42.8-82.8); PLATELET COUNT 118 K/MM3 (134-434); RBC 3.16 M/mm3 (3.60-5.2); RDW 14.8 % (11.6-15.6); WHITE BLOOD COUNT 14.8 K/mm3 (4.0-10.0)
[2020-08-02 10:01] LABS: POTASSIUM 4.3 mmol/L (3.5-5.1)
[2020-08-02 10:03] LABS: ALBUMIN 2.1 g/dl (3.4-5.0); BLOOD UREA NITROGEN 14.6 mg/dL (7-18); CALCIUM 7.9 mg/dL (8.5-10.1)
[2020-08-02 10:06] LABS: CREATININE 0.7 mg/dL (0.55-1.3)
[2020-08-02 10:08] LABS: BILIRUBIN,TOTAL 0.3 mg/dL (0.2-1); TOT PROT 4.8 g/dl (6.4-8.2)
[2020-08-02] MEDS ORDERED: ACETAMINOPHEN/CAFFEINE/BUTALBITAL 1 TAB PO PRN (10:24)
[2020-08-02] MEDS ORDERED: NALOXONE HCL 0.4 MG/ML VIAL IVPUSH PRN (14:53)
[2020-08-02] MEDS ORDERED: ONDANSETRON 4 MG/2 ML VIAL IVPUSH PRN (14:53)
[2020-08-02] MEDS: DEXTROSE 5%-LACTATED RINGERS 1,000 ML IV SCH (15:30)
[2020-08-02] MEDS: SIMETHICONE 80 MG TAB.CHEW (FP) PO PRN ×2 (17:45→23:57)
[2020-08-02] MEDS: FENTANYL/BUPIVACAINE/NS/PF - PCEA - 50 ML DISP.SYRIN EP SCH (17:46)
[2020-08-02] MEDS: ELECTROLYTE-148 SOLN 1,000 ML IV SCH (17:48)
[2020-08-02] MEDS: ACETAMINOPHEN/CAFFEINE/BUTALBITAL 1 TAB PO PRN (23:17)
[2020-08-02] MEDS: IBUPROFEN 600 MG TABLET (FP) PO PRN (23:56)
[2020-08-03] MEDS ORDERED: BISACODYL 10 MG SUPP.RECT PR PRN ×2 (00:15)
[2020-08-03] MEDS: ACETAMINOPHEN 325 MG TABLET (FP) PO PRN ×2 (06:47→17:09)
[2020-08-03] MEDS: IBUPROFEN 600 MG TABLET (FP) PO PRN ×2 (06:47→17:09)
[2020-08-03] MEDS: SIMETHICONE 80 MG TAB.CHEW (FP) PO PRN ×3 (06:48→21:23)
[2020-08-03 09:11] LABS: BASO % 0.2 % (0-2.0); HEMATOCRIT 24.1 % (32.4-45.2); HEMOGLOBIN 8.2 GM/dL (10.7-15.3); LYMPH % 11.4 % (8-40); MCH 30.7 pg (25.7-33.7); MCHC 33.8 g/dl (32.0-36.0); MEAN CELL VOLUME 90.7 fl (80-96); MEAN PLT VOLUME 9.8 fl (7.5-11.1); MONO % 7.9 % (3.8-10.2); NEUT % 79.5 % (42.8-82.8); PLATELET COUNT 112 K/MM3 (134-434); RBC 2.66 M/mm3 (3.60-5.2); RDW 15.3 % (11.6-15.6); WHITE BLOOD COUNT 9.8 K/mm3 (4.0-10.0)
[2020-08-03 10:00] LABS: ALBUMIN 1.9 g/dl (3.4-5.0); BLOOD UREA NITROGEN 11.9 mg/dL (7-18); CALCIUM 7.8 mg/dL (8.5-10.1)
[2020-08-03 10:03] LABS: CREATININE 0.7 mg/dL (0.55-1.3)
[2020-08-03 10:05] LABS: BILIRUBIN,TOTAL 0.2 mg/dL (0.2-1); TOT PROT 4.5 g/dl (6.4-8.2)
[2020-08-03] MEDS: ACETAMINOPHEN/CAFFEINE/BUTALBITAL 1 TAB PO PRN ×2 (10:24→21:24)
[2020-08-03] MEDS: FERROUS SO4 325 MG TABLET (FP) PO SCH (17:08)
[2020-08-03] MEDS: DEXTROSE 5%-LACTATED RINGERS 1,000 ML IV SCH (19:37)
[2020-08-04] MEDS: IBUPROFEN 600 MG TABLET (FP) PO PRN ×4 (01:25→20:38)
[2020-08-04] MEDS: ACETAMINOPHEN 325 MG TABLET (FP) PO PRN (01:25)
[2020-08-04] MEDS: SIMETHICONE 80 MG TAB.CHEW (FP) PO PRN ×4 (01:25→20:38)
[2020-08-04] MEDS: ACETAMINOPHEN/CAFFEINE/BUTALBITAL 1 TAB PO PRN ×2 (07:34→12:19)
[2020-08-04] MEDS: FERROUS SO4 325 MG TABLET (FP) PO SCH ×2 (08:45→16:35)
[2020-08-04] MEDS: PRENATAL VITAMINS W/ FOLIC ACID TABLET (FP) PO SCH (09:39)
[2020-08-04] MEDS ORDERED: SODIUM PHOSPHATE/NA BIPHOS 133 ML ENEMA PR ONE (09:48)
[2020-08-04] MEDS ORDERED: SENNOSIDES/DOCUSATE COMBO (SENNA PLUS) TABLET (UD) PO PRN (22:00)
[2020-08-04] MEDS: SENNOSIDES/DOCUSATE COMBO (SENNA PLUS) TABLET (UD) PO PRN (23:22)
[2020-08-05] MEDS: SIMETHICONE 80 MG TAB.CHEW (FP) PO PRN ×4 (00:44→23:35)
[2020-08-05] MEDS: IBUPROFEN 600 MG TABLET (FP) PO PRN (00:45)
[2020-08-05] MEDS: ACETAMINOPHEN 325 MG TABLET (FP) PO PRN ×3 (00:45→15:48)
[2020-08-05] MEDS: ACETAMINOPHEN/CAFFEINE/BUTALBITAL 1 TAB PO PRN ×2 (06:21→12:04)
[2020-08-05] MEDS: FERROUS SO4 325 MG TABLET (FP) PO SCH ×2 (08:55→18:06)
[2020-08-05 09:08] LABS: BASO % 0.8 % (0-2.0); EOS % 5.1 % (0-4.5); HEMATOCRIT 22.9 % (32.4-45.2); HEMOGLOBIN 7.8 GM/dL (10.7-15.3); LYMPH % 17.6 % (8-40); MCH 31.2 pg (25.7-33.7); MEAN CELL VOLUME 91.8 fl (80-96); MEAN PLT VOLUME 9.3 fl (7.5-11.1); MONO % 6.7 % (3.8-10.2); NEUT % 69.8 % (42.8-82.8); PLATELET COUNT 116 K/MM3 (134-434); RBC 2.49 M/mm3 (3.60-5.2); RDW 14.9 % (11.6-15.6); WHITE BLOOD COUNT 6.4 K/mm3 (4.0-10.0)
[2020-08-05] MEDS: PRENATAL VITAMINS W/ FOLIC ACID TABLET (FP) PO SCH (09:18)
[2020-08-05] MEDS: oxyCODONE HCL 5 MG TABLET PO PRN (15:48)
[2020-08-05] MEDS: FENTANYL/BUPIVACAINE/NS/PF - PCEA - 50 ML DISP.SYRIN EP SCH ×2 (19:15→19:28)
[2020-08-05] MEDS: ELECTROLYTE-148 SOLN 1,000 ML IV SCH ×3 (19:17→20:49)
[2020-08-05] MEDS: DEXTROSE 5%-LACTATED RINGERS 1,000 ML IV SCH (19:18)
[2020-08-05] MEDS: SENNOSIDES/DOCUSATE COMBO (SENNA PLUS) TABLET (UD) PO PRN (23:35)
[2020-08-06] MEDS: IBUPROFEN 600 MG TABLET (FP) PO PRN ×4 (03:17→17:10)
[2020-08-06] MEDS: oxyCODONE HCL 5 MG TABLET PO PRN (03:17)
[2020-08-06] MEDS: ACETAMINOPHEN 325 MG TABLET (FP) PO PRN ×4 (03:18→17:11)
[2020-08-06] MEDS: SIMETHICONE 80 MG TAB.CHEW (FP) PO PRN ×4 (03:19→17:10)
[2020-08-06 03:23] VITALS: PULSE 62
[2020-08-06 07:13] LABS: BASO % 0.5 % (0-2.0); EOS % 5.4 % (0-4.5); HEMATOCRIT 27.5 % (32.4-45.2); HEMOGLOBIN 9.5 GM/dL (10.7-15.3); LYMPH % 17.1 % (8-40); MCH 31.6 pg (25.7-33.7); MCHC 34.5 g/dl (32.0-36.0); MEAN CELL VOLUME 91.6 fl (80-96); MEAN PLT VOLUME 8.8 fl (7.5-11.1); MONO % 5.9 % (3.8-10.2); NEUT % 71.1 % (42.8-82.8); PLATELET COUNT 136 K/MM3 (134-434); RBC 3.01 M/mm3 (3.60-5.2); RDW 14.8 % (11.6-15.6); WHITE BLOOD COUNT 6.6 K/mm3 (4.0-10.0)
[2020-08-06] MEDS: FERROUS SO4 325 MG TABLET (FP) PO SCH ×2 (08:34→17:10)
[2020-08-06] MEDS: PRENATAL VITAMINS W/ FOLIC ACID TABLET (FP) PO SCH (10:07)
[2020-08-06 14:12] VITALS: BP 135/72; TEMP 98.3
== END 2020-08-06 17:25 | disposition home or self-care (01) | DRG 540 ==
LOC: JLDR 18:20 → UNDOADMIN 18:48 → JERBED 18:48 → JICU 08-02 03:57 → J3W 08-02 14:59
PROVIDERS: ADMIT Obstetrics & Gynecology; ATTEND Obstetrics & Gynecology
PROC: 10D00Z1 Extraction of Products of Conception, Low, Open Approach (ICD-10-PCS; principal; 2020-08-02)
PROC: 30233N1 Transfusion of Nonautologous Red Blood Cells into Peripheral Vein, Percutaneous Approach (ICD-10-PCS; 2020-08-02)
PROC: 30233L1 Transfusion of Nonautologous Fresh Plasma into Peripheral Vein, Percutaneous Approach (ICD-10-PCS; 2020-08-02)
PROC: 30233K1 Transfusion of Nonautologous Frozen Plasma into Peripheral Vein, Percutaneous Approach (ICD-10-PCS; 2020-08-02)
PROC: 3E0R3GC Introduction of Other Therapeutic Substance into Spinal Canal, Percutaneous Approach (ICD-10-PCS; 2020-08-04)
DX: O36.8330 Maternal care for abnormalities of the fetal heart rate or rhythm, third trimester, not applicable or unspecified (principal); O45.93 Premature separation of placenta, unspecified, third trimester; O99.02 Anemia complicating childbirth; O99.12 Other diseases of the blood and blood-forming organs and certain disorders involving the immune mechanism complicating childbirth; D68.9 Coagulation defect, unspecified; O29.43 Spinal and epidural anesthesia induced headache during pregnancy, third trimester; Z3A.39 39 weeks gestation of pregnancy; D62 Acute posthemorrhagic anemia; Z37.0 Single live birth
CPT/HCPCS: 36415; 36430; 36600; 70553-TC; 74190-TC-FY; 80048; 80053; 82803; 85025; 85362; 85379; 85384; 85610; 85730; 86780; 86850; 86900; 86901; 86922; 87389; 88307-TC; 94010; A9579; C9803; P9017; P9058; U0003

== ENCOUNTER 2021-01-21 21:35 | Emergency (ER) | payer OTHER ==
[2021-01-21 22:26] VITALS: BP 132/75; PULSE 78; TEMP 99; BMI 24.6
[2021-01-22] MEDS ORDERED: ASPIRIN 81 MG CHEWABLE TABLETS PO ONE (00:19)
[2021-01-22 00:57] LABS: BASO % 1.3 % (0-2.0); HEMATOCRIT 38.2 % (32.4-45.2); HEMOGLOBIN 13.1 GM/dL (10.7-15.3); LYMPH % 28.1 % (8-40); MCH 30.1 pg (25.7-33.7); MCHC 34.3 g/dl (32.0-36.0); MEAN CELL VOLUME 87.8 fl (80-96); MEAN PLT VOLUME 8.9 fl (7.5-11.1); MONO % 7.7 % (3.8-10.2); NEUT % 57.9 % (42.8-82.8); PLATELET COUNT 199 10^3/uL (134-434); RBC 4.34 M/mm3 (3.60-5.2); WHITE BLOOD COUNT 6.3 K/mm3 (4.0-10.0)
[2021-01-22] MEDS ORDERED: ASPIRIN 81 MG CHEWABLE TABLETS ONE (00:57)
[2021-01-22 01:19] LABS: CHLORIDE 108 mmol/L (98-107); SODIUM 140 mmol/L (136-145)
[2021-01-22 01:21] LABS: ALBUMIN 3.8 g/dl (3.4-5.0); CALCIUM 8.6 mg/dL (8.5-10.1)
[2021-01-22 01:22] LABS: ANION GAP 5 MMOL/L (8-16); CO2 27 mmol/L (21-32); GLUCOSE,RANDOM 85 mg/dL (74-106)
[2021-01-22 01:25] LABS: CREATININE 0.7 mg/dL (0.55-1.3); SGOT/AST 16 U/L (15-37); SGPT/ALT 42 U/L (13-61)
[2021-01-22 01:26] LABS: BILIRUBIN,TOTAL 0.3 mg/dL (0.2-1)
[2021-01-22 01:39] LABS: ALK PHOS 68 U/L (45-117)
== END 2021-01-22 03:24 | disposition home or self-care (01) ==
LOC: JER 21:35
DX: U07.1 COVID-19 (principal); R07.89 Other chest pain
CPT/HCPCS: 36415; 71045-TC-FY; 80053; 82550; 83735; 84484; 84703; 85025; 85379; 93005; 93010; 99285-25

== ENCOUNTER 2021-05-20 08:19 | Emergency (ER) | payer OTHER ==
[2021-05-20 08:33] VITALS: BP 104/69; PULSE 66; TEMP 97.6; BMI 23.8
[2021-05-20] MEDS ORDERED: ASPIRIN 81 MG CHEWABLE TABLETS PO ONE (09:32)
[2021-05-20] MEDS ORDERED: ASPIRIN 81 MG CHEWABLE TABLETS ONE (10:16)
[2021-05-20 10:27] LABS: EOS % 4.8 % (0-4.5); HEMATOCRIT 40.8 % (32.4-45.2); HEMOGLOBIN 13.4 GM/dL (10.7-15.3); LYMPH % 28.1 % (8-40); MCH 29.6 pg (25.7-33.7); MCHC 32.8 g/dl (32.0-36.0); MEAN CELL VOLUME 90.1 fl (80-96); MEAN PLT VOLUME 9.2 fl (7.5-11.1); MONO % 9.6 % (3.8-10.2); NEUT % 55.5 % (42.8-82.8); PLATELET COUNT 212 10^3/uL (134-434); RBC 4.52 M/mm3 (3.60-5.2); RDW 12.8 % (11.6-15.6)
[2021-05-20 10:33] LABS: INR 1.05 (0.83-1.09); PROTHROMBIN TIME (PATIENT) 11.8 SEC (9.7-13.0)
[2021-05-20 10:36] LABS: ACTIVATED PTT 34.4 SECONDS (25.2-36.5)
[2021-05-20 10:45] LABS: CHLORIDE 107 mmol/L (98-107); SODIUM 141 mmol/L (136-145)
[2021-05-20 10:47] LABS: CALCIUM 8.7 mg/dL (8.5-10.1)
[2021-05-20 10:48] LABS: ALBUMIN 3.7 g/dl (3.4-5.0); ANION GAP 4 MMOL/L (8-16); BLOOD UREA NITROGEN 14.3 mg/dL (7-18); CO2 31 mmol/L (21-32); GLUCOSE,RANDOM 81 mg/dL (74-106); MAGNESIUM 2.3 mg/dL (1.8-2.4)
[2021-05-20 10:51] LABS: CREATININE 0.7 mg/dL (0.55-1.3); SGOT/AST 11 U/L (15-37); SGPT/ALT 18 U/L (13-61)
[2021-05-20 10:53] LABS: BILIRUBIN,TOTAL 0.3 mg/dL (0.2-1); TOT PROT 6.9 g/dl (6.4-8.2)
[2021-05-20 10:54] LABS: ALK PHOS 63 U/L (45-117)
[2021-05-20 11:06] LABS: EPI CELLS >36 /uL (0-25.1); HYALINE CASTS 1 /uL (0-3.1); PH,URINE 7.5 (5.0-8.0); URINE APPEARANCE CLEAR; URINE BACTERIA 778 /uL (0-1359); URINE BILIRUBIN NEGATIVE (NEGATIVE); URINE COLOR DK YELLOW; URINE GLUCOSE (UA) NEGATIVE (NEGATIVE); URINE KETONE NEGATIVE (NEGATIVE); URINE LEUK ESTERASE TRACE (NEGATIVE); URINE NITRITE NEGATIVE (NEGATIVE); URINE PROTEIN NEGATIVE (NEGATIVE); URINE RBC 17 /uL (0-23.9); URINE UROBILINOGEN 0.2 mg/dL (0.2-1.0); URINE WBC 19 /uL (0-25.8)
[2021-05-21 17:09] LABS: SARS-CoV-2 NAA Not Detected (Not Detected)
== END 2021-05-20 13:53 | disposition home or self-care (01) ==
LOC: JER 08:19
DX: R20.2 Paresthesia of skin (principal)
CPT/HCPCS: 36415; 70450-TC; 71046-TC-FY; 80053; 81003; 82550; 83735; 84484; 85025; 85610; 85730; 93005; 93010; 99284-25; C9803; U0003; U0005

== ENCOUNTER 2022-07-21 07:46 | Emergency (ER) | payer OTHER ==
[2022-07-21 07:56] VITALS: RESP 18; BMI 25.2
[2022-07-21 10:47] VITALS: BP 102/66; PULSE 69; TEMP 97.1
== END 2022-07-21 10:47 | disposition home or self-care (01) ==
LOC: JER 07:46
DX: K59.00 Constipation, unspecified (principal)
CPT/HCPCS: 0241U-QW; 84703; 93005; 93010; 99284-25

== ENCOUNTER 2022-08-30 00:08 | Emergency (ER) | payer OTHER ==
[2022-08-30 00:14] VITALS: BP 117/78; PULSE 65; RESP 18; TEMP 98.1; BMI 25.6
[2022-08-30] MEDS ORDERED: AMOX TR/POT CLAV 875MG/125MG TABLETS (FP) PO ONE (01:28)
[2022-08-30] MEDS ORDERED: IBUPROFEN 600 MG TABLET (FP) PO ONE ×2 (01:28→01:30)
== END 2022-08-30 01:36 | disposition home or self-care (01) ==
LOC: JER 00:08
DX: H66.91 Otitis media, unspecified, right ear (principal); H92.01 Otalgia, right ear
CPT/HCPCS: 99283-25

== ENCOUNTER 2022-10-27 05:08 | Day surgery (SDC) | payer OTHER ==
[2022-10-23 13:51] VITALS: BMI 26.0
[2022-10-27 13:36] VITALS: TEMP 98
[2022-10-27 17:38] VITALS: BP 108/60; PULSE 59; RESP 19
== END 2022-10-27 14:20 | disposition home or self-care (01) ==
LOC: JASU-ENDO 05:08
PROVIDERS: ATTEND Student in an Organized Health Care Education/Training Program
PROC: 0DJD8ZZ Inspection of Lower Intestinal Tract, Via Natural or Artificial Opening Endoscopic (ICD-10-PCS; principal; 2022-10-27 11:30)
DX: K59.00 Constipation, unspecified (principal); K64.8 Other hemorrhoids
CPT/HCPCS: 81025

== ENCOUNTER 2023-08-12 07:15 | Emergency (ER) | payer OTHER ==
[2023-08-12 07:25] VITALS: BP 108/74; PULSE 82; RESP 18; TEMP 98.4; BMI 25.4
[2023-08-12] MEDS ORDERED: ACETAMINOPHEN INJECTION 100 ML IVPB ONE (08:15)
[2023-08-12] MEDS ORDERED: MECLIZINE HCL 25 MG TABLET (FP) ONE ×2 (08:15→08:23)
[2023-08-12] MEDS ORDERED: METOCLOPRAMIDE HCL INJECTION 10 MG/2 ML VIAL ONE (08:15)
[2023-08-12] MEDS: SODIUM CHLORIDE 0.9% 500 ML INFUS.BAG IV ONE (08:39)
[2023-08-12] MEDS: ACETAMINOPHEN 1000 MG/100 ML BAG IVPB ONE (08:40)
[2023-08-12] MEDS: MECLIZINE HCL 25 MG TABLET (FP) PO ONE (08:41)
[2023-08-12] MEDS: METOCLOPRAMIDE HCL INJECTION 10 MG/2 ML VIAL IVPUSH ONE (08:41)
[2023-08-12 08:42] LABS: BASO % 1.3 % (0-2.0); EOS % 2.9 % (0-4.5); HEMATOCRIT 39.8 % (32.4-45.2); HEMOGLOBIN 13.1 GM/dL (10.7-15.3); LYMPH % 24.5 % (8-40); MCH 29.6 pg (25.7-33.7); MEAN CELL VOLUME 89.7 fl (80-96); MEAN PLT VOLUME 9.2 fl (7.5-11.1); MONO % 7.7 % (3.8-10.2); NEUT % 63.6 % (42.8-82.8); PLATELET COUNT 208 10^3/uL (134-434); RBC 4.43 M/mm3 (3.60-5.2); RDW 12.5 % (11.6-15.6); WHITE BLOOD COUNT 5.5 K/mm3 (4.0-10.0)
[2023-08-12 09:00] LABS: POTASSIUM 5.4 mmol/L (3.5-5.1)
[2023-08-12 09:02] LABS: CALCIUM 8.9 mg/dL (8.5-10.1)
[2023-08-12 09:03] LABS: ALBUMIN 3.4 g/dl (3.4-5.0); BLOOD UREA NITROGEN 19.2 mg/dL (7-18)
[2023-08-12 09:06] LABS: CREATININE 0.7 mg/dL (0.55-1.3)
[2023-08-12 09:08] LABS: BILIRUBIN,TOTAL 0.3 mg/dL (0.2-1)
[2023-08-12 09:09] LABS: TOT PROT 6.8 g/dl (6.4-8.2)
[2023-08-12] MEDS ORDERED: MAGNESIUM SULFATE IN WATER 2 GM/50 ML IVPB IVPB ONE (09:16)
[2023-08-12] MEDS: MAGNESIUM SULF 50% (8.12 MEQ/2 ML-1 GM VIAL) IVPB ONE (09:32)
== END 2023-08-12 10:00 | disposition home or self-care (01) ==
LOC: JER 07:15
PROC: 3E033NZ Introduction of Analgesics, Hypnotics, Sedatives into Peripheral Vein, Percutaneous Approach (ICD-10-PCS; principal; 2023-08-12)
PROC: 3E033GC Introduction of Other Therapeutic Substance into Peripheral Vein, Percutaneous Approach (ICD-10-PCS; 2023-08-12)
PROC: 3E033GC Introduction of Other Therapeutic Substance into Peripheral Vein, Percutaneous Approach (ICD-10-PCS; 2023-08-12)
DX: R51.9 Headache, unspecified (principal); R09.81 Nasal congestion; R11.0 Nausea; R42 Dizziness and giddiness; Z20.822 Contact with and (suspected) exposure to COVID-19
CPT/HCPCS: 0241U-QW; 36415; 70450-TC; 80053; 84703; 85025; 93005; 93010; 99285-25; J0131